=== PATIENT | male | born 1970 | race African-American/Black ===

== ENCOUNTER 2016-10-30 21:34 | Inpatient (IN) | payer MEDICARE, OTHER ==
[~2016-10-30] VITALS: Ht 182.9 cm; Wt 123.4 kg
[~2016-10-30 21:34] MED LIST: CARV25TA2 PO; FURO40TA4 PO; HYDR-2869 PO; MYCO360T PO; OMEP40CA5 PO; POTA20TA12 PO; PRED2.5T PO; TACR1CAP4 PO
[2016-10-30] MEDS ORDERED: IV NORMAL SALINE 500ML BAG 500 ML IV ONE (22:00)
[2016-10-30 22:11] LABS: BASO # 0.1 x10^3/uL (0.0-0.2); BASO % 1 % (0-3); EOS % 1 % (0-3); HEMATOCRIT 40.3 % (39.0-53.0); HEMOGLOBIN 12.9 g/dL (13.0-17.5); LYMPH # 1.3 x10^3/uL (1.0-4.8); LYMPH % 19 % (24-48); MEAN CORPUSCULAR HEMOGLOBIN 26 pg (25-35); MEAN CORPUSCULAR HGB CONC 32 g/dL (31-37); MEAN CORPUSCULAR VOLUME 80 fL (79-100); MONO % 12 % (0-9); NEUT % 67 % (31-73); PLATELET COUNT 194 x10^3/uL (140-400); RED BLOOD COUNT 5.03 x10^6/uL (4.30-5.70); RED CELL DISTRIBUTION WIDTH 13.6 % (11.5-14.5); WHITE BLOOD COUNT 6.8 x10^3/uL (4.0-11.0)
--- NOTE | 2016-10-30 22:17 | PHYS DOC ---
Past Medical History Past Medical History: CHF, Hypertension, Other Additional Past Medical Histor: KIDNEY FAILURE, BAD HEART VALVE, Past Surgical History: Appendectomy, Other Additional Past Surgical Histo: KIDNEY TRANSPLANT, AV FISTULA LEFT ARM Alcohol Use: None Drug Use: None Adult General Chief Complaint Chief Complaint: BLOOD SUGAR PROBLEM HPI HPI Patient is a 46 year old male who presents with complaint of high blood sugar. Patient states that he has been having trouble with high blood sugar for the past 2 weeks. Patient's blood sugars have been ranging between 305 100 during that time. Patient states that he has had 2 visits to the emergency department at [facility]. He states both times he was evaluated, given fluids and medication to help decrease his blood sugar and discharge back home. Patient states that his blood sugar has been persistently high despite treatment. Patient states that he is currently on oral medication for treatment of type 2 diabetes mellitus. Patient has history of CHF, hypertension, and history of renal failure status post kidney transplant. Patient denies any pain. Patient states that he has "a weird feeling in my chest." When asked to elaborate the patient denies that it feels like pain or congestion but states that he has had cough and mild shortness of breath with exertion. Review of Systems Review of Systems Constitutional: Fatigue, denies fever or chills [] Eyes: Denies change in visual acuity, redness, or eye pain [] HENT: Denies nasal congestion or sore throat [] Respiratory: Cough, shortness of breath [] Cardiovascular: Denies chest pain or edema [] GI: Denies abdominal pain, nausea, vomiting, bloody stools or diarrhea [] : Denies dysuria or hematuria [] Musculoskeletal: Denies back pain or joint pain [] Integument: Denies rash or skin lesions [] Neurologic: Denies headache, focal weakness or sensory changes [] Endocrine: Polyuria, polydipsia [] Current Medications Current Medications Current Medications Medications (Trade) Dose Ordered Sig/Bertram Start Time Stop Time Status Last Admin Dose Admin Insulin Detemir (Levemir) 20 units QHS 10/30/16 21:00 UNV Sodium Chloride (Iv Sodium Chloride 0.9% 500ml Bag) 500 ml @ 500 mls/hr 1X ONCE 10/30/16 22:00 10/30/16 22:59 DC 10/30/16 22:27 500 MLS/HR Allergies Allergies Allergies Coded Allergies Type Severity Reaction Last Updated Verified clonidine Allergy Intermediate 11/24/14 No Physical Exam Physical Exam Constitutional: Alert, obese, afebrile, no acute distress. [] HENT: Normocephalic, atraumatic, bilateral external ears normal, oropharynx moist, no oral exudates, nose normal. [] Eyes: PERRLA, EOMI, conjunctiva normal, no discharge. [] Neck: Normal range of motion, no tenderness, supple, no stridor. [] Cardiovascular:Heart rate regular rhythm, no murmur [] Lungs & Thorax: Bilateral breath sounds clear to auscultation [] Abdomen: Bowel sounds normal, soft, no tenderness, no masses, no pulsatile masses. [] Skin: Warm, dry, no erythema, no rash. [] Back: No tenderness, no CVA tenderness. [] Extremities: No tenderness, no cyanosis, no clubbing, ROM intact, 1+ pedal edema bilaterally. [] Neurologic: Alert and oriented X 3, normal motor function, normal sensory function, no focal deficits noted. [] Current Patient Data Vital Signs Vital Signs Date Time Temp Pulse Resp B/P Pulse Ox O2 Delivery O2 Flow Rate FiO2 10/30/16 21:38 98.2 94 20 133/75 95 Room Air 98.2 Lab Values Laboratory Tests Test 10/30/16 22:00 10/30/16 22:34 White Blood Count 6.8x10^3/uL (4.0-11.0) Red Blood Count 5.03x10^6/uL (4.30-5.70) Hemoglobin 12.9g/dL (13.0-17.5) L Hematocrit 40.3% (39.0-53.0) Mean Corpuscular Volume 80fL (79-100) Mean Corpuscular Hemoglobin 26pg (25-35) Mean Corpuscular Hemoglobin Concent 32g/dL (31-37) Red Cell Distribution Width 13.6% (11.5-14.5) Platelet Count 194x10^3/uL (140-400) Neutrophils (%) (Auto) 67% (31-73) Lymphocytes (%) (Auto) 19% (24-48) L Monocytes (%) (Auto) 12% (0-9) H Eosinophils (%) (Auto) 1% (0-3) Basophils (%) (Auto) 1% (0-3) Neutrophils # (Auto) 4.5x10^3uL (1.8-7.7) Lymphocytes # (Auto) 1.3x10^3/uL (1.0-4.8) Monocytes # (Auto) 0.8x10^3/uL (0.0-1.1) Eosinophils # (Auto) 0.0x10^3/uL (0.0-0.7) Basophils # (Auto) 0.1x10^3/uL (0.0-0.2) Sodium Level 132mmol/L (136-145) L Potassium Level 4.5mmol/L (3.5-5.1) Chloride Level 98mmol/L (98-107) Carbon Dioxide Level 24mmol/L (21-32) Anion Gap 10 (6-14) Blood Urea Nitrogen 25mg/dL (8-26) Creatinine 1.6mg/dL (0.7-1.3) H Estimated GFR (Cockcroft-Gault) 56.1 BUN/Creatinine Ratio 16 (6-20) Glucose Level 546mg/dL (70-99) *H Calcium Level 9.9mg/dL (8.5-10.1) Total Bilirubin 0.4mg/dL (0.2-1.0) Aspartate Amino Transferase (AST) 12U/L (15-37) L Alanine Aminotransferase (ALT) 21U/L (16-63) Alkaline Phosphatase 98U/L (46-116) Creatine Kinase 178U/L (39-308) Creatine Kinase MB (Mass) 0.6ng/mL (0.0-3.6) Creatine Kinase MB Relative Index 0.3% (0-4) Troponin I Quantitative < 0.017ng/mL (0.000-0.055) Total Protein 7.8g/dL (6.4-8.2) Albumin 3.5g/dL (3.4-5.0) Albumin/Globulin Ratio 0.8 (1.0-1.7) L Urine Collection Type Unknown Urine Color Yellow Urine Clarity Clear Urine pH 5.5 Urine Specific [place] >=1.030 Urine Protein 100mg/dL (NEG-TRACE) Urine Glucose (UA) >=1000mg/dL (NEG) Urine Ketones (Stick) Negativemg/dL (NEG) Urine Blood Trace (NEG) Urine Nitrite Negative (NEG) Urine Bilirubin Negative (NEG) Urine Urobilinogen Dipstick 0.2mg/dL (0.2 mg/dL) Urine Leukocyte Esterase Negative (NEG) Urine RBC 1-2/HPF (0-2) Urine WBC 0/HPF (0-4) Urine Squamous Epithelial Cells Occ/LPF Urine Bacteria 0/HPF (0-FEW) Laboratory Tests 10/30/16 22:00 Laboratory Tests 10/30/16 22:00 EKG EKG Interpreted by me: Heart rate 86, sinus rhythm, normal intervals, normal axis, no acute ST/T-wave abnormalities present [] Radiology/Procedures Radiology/Procedures One view AP chest x-ray interpreted by me: No infiltrate, no effusion, cardiomegaly present [] Course & Med Decision Making Course & Med Decision Making Pertinent Labs and Imaging studies reviewed. (See chart for details) The patient was started on IV fluids. Patient was found to have a critically high blood sugar 546. I spoke with Dr. Melvin who is on-call for Dr. Wu. She recommended that the patient be started on Levemir and be admitted to the hospital for initiation of insulin therapy for correction of the patient's blood sugar. Spoke with the patient who was in agreement with the treatment plan. Dragon Disclaimer Dragon Disclaimer This electronic medical record was generated, in whole or in part, using a voice recognition dictation system. 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
[2016-10-30 22:30] LABS: ALBUMIN 3.5 g/dL (3.4-5.0); ALBUMIN/GLOBULIN RATIO 0.8 (1.0-1.7); CALCIUM 9.9 mg/dL (8.5-10.1); CREATININE 1.6 mg/dL (0.7-1.3); GFR 56.1; POTASSIUM 4.5 mmol/L (3.5-5.1); TOTAL BILIRUBIN 0.4 mg/dL (0.2-1.0); TOTAL PROTEIN 7.8 g/dL (6.4-8.2)
[2016-10-30] MEDS ORDERED: ONDANSETRON PF 4 MG/2 ML VIAL. IV PRN (22:45)
[2016-10-30] MEDS ORDERED: IV NORMAL SALINE 1000ML BAG 1,000 ML IV SCH (22:45)
[2016-10-30] MEDS ORDERED: DEXTROSE 50% 25 GM / 50ML DISP.SYRIN. IV PRN (22:45)
[2016-10-30] MEDS ORDERED: INSULIN REGULAR 100 UNIT/ML 10ML VIAL. IV ONE (22:45)
[2016-10-30] MEDS ORDERED: ACETAMINOPHEN 325 MG TABLET. PO PRN (22:45)
[2016-10-30 22:50] LABS: BILIRUBIN,URINE NEGATIVE (NEG); GLUCOSE,URINE >=1000 mg/dL (NEG); NITRITE,URINE NEGATIVE (NEG); PH,URINE 5.5; PROTEIN,URINE 100 mg/dL (NEG-TRACE); UROBILINOGEN,URINE 0.2 mg/dL (0.2 mg/dL)
[2016-10-30 23:03] LABS: CKMB INDEX 0.3 % (0-4); CKMB MASS 0.6 ng/mL (0.0-3.6)
[2016-10-30 23:05] LABS: BACTERIA,URINE 0 /HPF (0-FEW); SQUAMOUS EPITHELIAL CELL,UR OCC /LPF; WBC,URINE 0 /HPF (0-4)
--- NOTE | 2016-10-30 23:28 | ACF ---
Admit Criteria Forms Admit Criteria Forms Admit Criteria Forms DIABETES Clinical Indications for Admission to Inpatient Care (Place 'X' for any and all applicable criteria): Admission is indicated by presence of ALL (if I & II) or ANY ONE (if III or IV) of the following (1)(2)(3)(4): [ ]I. Diabetes is uncontrolled as indicated by ANY ONE of the following: [ ]a) Diabetic ketoacidosis as indicated by ALL of the following (8): [ ]i) Hyperglycemia (eg, plasma glucose greater than 200 mg/ dL (11.1 mmol/L)) [ ]ii) Acidosis (eg, arterial pH less than 7.30, serum bicarbonate level less than 15 mEq/L (mmol/L)) [ ]iii) Moderate ketonuria or ketonemia [ ]b) Hyperglycemic hyperosmolar state as indicated by ALL of the following(9)(10): [ ]i) Neurologic dysfunction (eg, stupor, coma, hemiparesis , seizure)(13) [ ]ii) Plasma glucose greater than 600 mg/dL (33.3 mmol/L) [ ]iii) Serum osmolality greater than 320 mOsm/kg (mmol/kg) [ ]c) Severe signs or symptoms secondary to hyperglycemia indicated by ANY ONE of the following: [ ]i) Altered mental status(10) [ ]ii) Significant hypovolemia or dehydration [ ]iii) Intractable nausea or vomiting [ ]iv) Unexplained fever or severe infection [ ]v) Severe electrolyte abnormality (eg, hypokalemia, hyperkalemia, hypernatremia) [ ]II. Management at other levels of care (Also use Diabetes: Observation Care as appropriate) is not feasible because of ANY ONE of the following: [ ]a) Condition was not adequately corrected with treatment at other levels of care. [ ]b) Treatment at other levels of care is not appropriate because of condition severity (eg, hyperosmolar coma). [X]III. Contraindications and/or Inappropriate clinical situations for Observational Care in patients with Diabetes, when ANY ONE of the following is required: [X]a) Patient require specific diagnostic workup or therapeutic intervention 22 [ ]b) Patient with abnormal vital signs or altered mental status 23 [ ]IV. General contraindications and/or Inappropriate clinical situations for Observational Care in patients with Diabetes, when ANY ONE of the following is required: [ ]a) Prediction of prolongation of LOS based on ANY ONE of the following may be considered as a contraindication for observational care 2, 3, 4, 5, 6, 7, 8, 9, 10, 11 [ ]i) Age > 65 yrs. [ ]ii) Patient arriving by ambulance [ ]iii) Patient with high acuity [ ]iv) Patient requiring vital sign monitoring [ ]v) Patient on IV medication [ ]b) Systolic blood pressures 180mmHg 3,12 [ ]c) Patient with altered mental status including delirium and other alteration of consciousness, (3) [ ]d) Patient whose discharge disposition will be to a [place] [facility] home or rehabilitation home should not be managed in Emergency Department Observation Unit. CMS rule requires 3 days hospital stay before such placement.3,13 [ ]e) Patient with failure to thrive due to broad array of etiologies 3,16,17 [ ]f) Inability to ambulate 3,14 Extended stay beyond goal length of stay may be needed for(3)(20): [ ]a) Treatment of precipitating causes [ ]b) Development of hypoglycemia [ ]c) Complications of treatment [ ]d) Complications of decompensated diabetes (eg, acute gastric dilatation, persistent metabolic or neurologic derangement) [ ]e) Active Comorbidities [ ]f) Older patients( 65 years or older) The original [employer] content created by [employer] has been revised. The portions of the content which have been revised are identified through the use of italic text or in bold,and [facility] has neither reviewed nor approved the modified material. All other unmodified content is copyright [employer]. Please see references footnoted in the original [employer] edition 2016 EVETTE LONGORIA Oct 30, 2016 23:28
[2016-10-30 23:35] VITALS: BP 133/80
[2016-10-30] MEDS ORDERED: INSULIN DETEMIR 300 UNITS/3 ML INSULN.PEN. SQ SCH (23:45)
[2016-10-31] MEDS ORDERED: HYDR100T24 PO (00:17)
[2016-10-31] MEDS ORDERED: PRAV20TA2 PO (00:17)
[2016-10-31] MEDS ORDERED: GLIM4TAB2 PO (00:17)
[2016-10-31] MEDS ORDERED: PRED5TAB PO (00:17)
[2016-10-31] MEDS ORDERED: POTA20TA82 PO (00:17)
[2016-10-31] MEDS ORDERED: MAGN400C PO (00:17)
[2016-10-31] MEDS ORDERED: PIOG15TA2 PO (00:17)
[2016-10-31] MEDS ORDERED: TACR5CAP4 PO (00:17)
[2016-10-31] MEDS ORDERED: AMLO5TAB2 PO (00:17)
[2016-10-31] MEDS ORDERED: ALLO300T PO (00:17)
[2016-10-31] MEDS ORDERED: DEXTROSE 50% 25 GM / 50ML DISP.SYRIN. IV PRN (00:45)
[2016-10-31] MEDS ORDERED: INSULIN ASPART 300 UNITS/3 ML INSULN.PEN SQ ONE (01:00)
[2016-10-31] MEDS: ATORVASTATIN CALCIUM 10 MG TABLET. PO SCH ×2 (01:18→20:41)
[2016-10-31] MEDS: HYDRALAZINE 50 MG TABLET PO SCH ×4 (01:18→20:42)
[2016-10-31] MEDS: CARVEDILOL 12.5 MG TABLET PO SCH ×3 (01:20→17:16)
[2016-10-31 03:01] VITALS: BP 143/106
[2016-10-31 05:53] LABS: BASO % 0 % (0-3); EOS % 1 % (0-3); HEMATOCRIT 37.6 % (39.0-53.0); HEMOGLOBIN 12.3 g/dL (13.0-17.5); LYMPH # 1.9 x10^3/uL (1.0-4.8); LYMPH % 32 % (24-48); MEAN CORPUSCULAR HEMOGLOBIN 26 pg (25-35); MEAN CORPUSCULAR HGB CONC 33 g/dL (31-37); MEAN CORPUSCULAR VOLUME 79 fL (79-100); MONO % 14 % (0-9); NEUT % 53 % (31-73); PLATELET COUNT 159 x10^3/uL (140-400); RED BLOOD COUNT 4.78 x10^6/uL (4.30-5.70); RED CELL DISTRIBUTION WIDTH 13.3 % (11.5-14.5); WHITE BLOOD COUNT 5.9 x10^3/uL (4.0-11.0)
[2016-10-31 05:56] LABS: CALCIUM 9.2 mg/dL (8.5-10.1); CREATININE 1.3 mg/dL (0.7-1.3); GFR 71.3; POTASSIUM 3.6 mmol/L (3.5-5.1)
--- NOTE | 2016-10-31 06:19 | EKG ---
[facility] [address] [place] [address] Test Date: 2016-10-30 Test Time: 21:57:58 Pat Name: MARGIE SMITH Department: Room: 521 1 Gender: M [employer]: : 1970 Requested By: CLAUDIO GONZALES Order Number: [id number] Reading MD: Luz Hilario Measurements Intervals [place] Rate: 86 P: 47 ID: [id number] QRS: 18 QRSD: 78 T: 37 QT: 344 QTc: 414 Interpretive Statements SINUS RHYTHM LEFT ATRIAL ABNORMALITY OLD ANTEROSEPTAL WALL MYOCARDIAL INFARCTION ABNORMAL ECG RI6.01 No previous ECG available for comparison Electronically Signed On 10-31-2016 19:52:08 CDT by Luz Hilario
[2016-10-31 07:25] VITALS: BP 135/88
[2016-10-31] MEDS ORDERED: INSULIN ASPART 300 UNITS/3 ML INSULN.PEN SQ SCH ×2 (08:00)
[2016-10-31] MEDS: INSULIN ASPART 300 UNITS/3 ML INSULN.PEN SQ SCH ×5 (08:00→17:19)
--- NOTE | 2016-10-31 08:07 | RAD ---
Portable chest, 10/30/2016: History: Cough Comparison is made to a study from 11/24/2014. The heart is at the upper limits of normal in size. The pulmonary vascularity is normal. No pulmonary infiltrate is seen. There is no evidence of pleural fluid. IMPRESSION: No acute cardiopulmonary abnormality is detected.
--- NOTE | 2016-10-31 08:54 | PDOC ---
PROGRESS NOTES Subjective Subjective Patient reports he feels better with his blood sugars a little lower. Objective Objective Vital Signs Date Time Temp Pulse Resp B/P Pulse Ox O2 Delivery O2 Flow Rate FiO2 10/31/16 08:01 76 135/88 10/31/16 07:25 97.5 20 97 Room Air 97.5 Intake and Output 10/31/16 07:00 Intake Total 800 ml Balance 800 ml Intake Oral 300 ml IV Total 500 ml Physical Exam Abdomen: Normal bowel sounds, Soft, No tenderness Heart: Regular rate, Other (II/ holosystolic murmur) Extremities: No edema General: Alert, Oriented X3, No acute distress Lungs: Clear to auscultation Assessment Assessment Problems Medical Problems: (1) Dehydration Status: Acute (2) Hyperosmolar non-ketotic state in patient with type 2 diabetes mellitus Status: Acute (3) Hypertension Status: Acute (4) Uncontrolled diabetes mellitus Status: Acute Plan Plan of Care 1. Uncontrolled DM2 - starting to improve with insulins, will continue and adjust as indicated. Patient reports that until a few weeks ago he was well controlled on po meds only, last A1C was "6 something". Admits he wasn't watching his diet at all but now intends to work on this. Will check C peptide to see if patient will need to continue on insulin. 2. HTN - continue home meds. 3. s/p renal transplant - continue his usual meds for this, including Prednisone. Renal function has improved overnight with hydration. Patient encouraged increased po fluids. Follow lab. 4. heart murmur - patient reports a history of this, no evaluation for several years. Will consult Cardiology to help with this. 5. ALYSIA - patient's home machine has not worked for several months. Will use hospital equipment while he is here, try to assist with obtaining a new machine as outpatient. Comment Review of Relevant I have reviewed the following items izabela (where applicable) has been applied. Labs Laboratory Tests Test 10/30/16 22:00 10/30/16 22:34 10/31/16 00:24 10/31/16 05:15 White Blood Count 6.8x10^3/uL (4.0-11.0) 5.9x10^3/uL (4.0-11.0) Red Blood Count 5.03x10^6/uL (4.30-5.70) 4.78x10^6/uL (4.30-5.70) Hemoglobin 12.9g/dL (13.0-17.5) 12.3g/dL (13.0-17.5) Hematocrit 40.3% (39.0-53.0) 37.6% (39.0-53.0) Mean Corpuscular Volume 80fL (79-100) 79fL (79-100) Mean Corpuscular Hemoglobin 26pg (25-35) 26pg (25-35) Mean Corpuscular Hemoglobin Concent 32g/dL (31-37) 33g/dL (31-37) Red Cell Distribution Width 13.6% (11.5-14.5) 13.3% (11.5-14.5) Platelet Count 194x10^3/uL (140-400) 159x10^3/uL (140-400) Neutrophils (%) (Auto) 67% (31-73) 53% (31-73) Lymphocytes (%) (Auto) 19% (24-48) 32% (24-48) Monocytes (%) (Auto) 12% (0-9) 14% (0-9) Eosinophils (%) (Auto) 1% (0-3) 1% (0-3) Basophils (%) (Auto) 1% (0-3) 0% (0-3) Neutrophils # (Auto) 4.5x10^3uL (1.8-7.7) 3.1x10^3uL (1.8-7.7) Lymphocytes # (Auto) 1.3x10^3/uL (1.0-4.8) 1.9x10^3/uL (1.0-4.8) Monocytes # (Auto) 0.8x10^3/uL (0.0-1.1) 0.8x10^3/uL (0.0-1.1) Eosinophils # (Auto) 0.0x10^3/uL (0.0-0.7) 0.0x10^3/uL (0.0-0.7) Basophils # (Auto) 0.1x10^3/uL (0.0-0.2) 0.0x10^3/uL (0.0-0.2) Sodium Level 132mmol/L (136-145) 136mmol/L (136-145) Potassium Level 4.5mmol/L (3.5-5.1) 3.6mmol/L (3.5-5.1) Chloride Level 98mmol/L (98-107) 102mmol/L (98-107) Carbon Dioxide Level 24mmol/L (21-32) 25mmol/L (21-32) Anion Gap 10 (6-14) 9 (6-14) Blood Urea Nitrogen 25mg/dL (8-26) 25mg/dL (8-26) Creatinine 1.6mg/dL (0.7-1.3) 1.3mg/dL (0.7-1.3) Estimated GFR (Cockcroft-Gault) 56.1 71.3 BUN/Creatinine Ratio 16 (6-20) Glucose Level 546mg/dL (70-99) 358mg/dL (70-99) Calcium Level 9.9mg/dL (8.5-10.1) 9.2mg/dL (8.5-10.1) Total Bilirubin 0.4mg/dL (0.2-1.0) Aspartate Amino Transf (AST/SGOT) 12U/L (15-37) Alanine Aminotransferase (ALT/SGPT) 21U/L (16-63) Alkaline Phosphatase 98U/L (46-116) Creatine Kinase 178U/L (39-308) Creatine Kinase MB (Mass) 0.6ng/mL (0.0-3.6) Creatine Kinase MB Relative Index 0.3% (0-4) Troponin I Quantitative < 0.017ng/mL (0.000-0.055) Total Protein 7.8g/dL (6.4-8.2) Albumin 3.5g/dL (3.4-5.0) Albumin/Globulin Ratio 0.8 (1.0-1.7) Urine Collection Type Unknown Urine Color Yellow Urine Clarity Clear Urine pH 5.5 Urine Specific [place] >=1.030 Urine Protein 100mg/dL (NEG-TRACE) Urine Glucose (UA) >=1000mg/dL (NEG) Urine Ketones (Stick) Negativemg/dL (NEG) Urine Blood Trace (NEG) Urine Nitrite Negative (NEG) Urine Bilirubin Negative (NEG) Urine Urobilinogen Dipstick 0.2mg/dL (0.2 mg/dL) Urine Leukocyte Esterase Negative (NEG) Urine RBC 1-2/HPF (0-2) Urine WBC 0/HPF (0-4) Urine Squamous Epithelial Cells Occ/LPF Urine Bacteria 0/HPF (0-FEW) Glucose (Fingerstick) 459mg/dL (70-99) Laboratory Tests Test 10/30/16 22:00 10/30/16 22:34 10/31/16 00:24 10/31/16 05:15 White Blood Count 6.8x10^3/uL (4.0-11.0) 5.9x10^3/uL (4.0-11.0) Red Blood Count 5.03x10^6/uL (4.30-5.70) 4.78x10^6/uL (4.30-5.70) Hemoglobin 12.9g/dL (13.0-17.5) 12.3g/dL (13.0-17.5) Hematocrit 40.3% (39.0-53.0) 37.6% (39.0-53.0) Mean Corpuscular Volume 80fL (79-100) 79fL (79-100) Mean Corpuscular Hemoglobin 26pg (25-35) 26pg (25-35) Mean Corpuscular Hemoglobin Concent 32g/dL (31-37) 33g/dL (31-37) Red Cell Distribution Width 13.6% (11.5-14.5) 13.3% (11.5-14.5) Platelet Count 194x10^3/uL (140-400) 159x10^3/uL (140-400) Neutrophils (%) (Auto) 67% (31-73) 53% (31-73) Lymphocytes (%) (Auto) 19% (24-48) 32% (24-48) Monocytes (%) (Auto) 12% (0-9) 14% (0-9) Eosinophils (%) (Auto) 1% (0-3) 1% (0-3) Basophils (%) (Auto) 1% (0-3) 0% (0-3) Neutrophils # (Auto) 4.5x10^3uL (1.8-7.7) 3.1x10^3uL (1.8-7.7) Lymphocytes # (Auto) 1.3x10^3/uL (1.0-4.8) 1.9x10^3/uL (1.0-4.8) Monocytes # (Auto) 0.8x10^3/uL (0.0-1.1) 0.8x10^3/uL (0.0-1.1) Eosinophils # (Auto) 0.0x10^3/uL (0.0-0.7) 0.0x10^3/uL (0.0-0.7) Basophils # (Auto) 0.1x10^3/uL (0.0-0.2) 0.0x10^3/uL (0.0-0.2) Sodium Level 132mmol/L (136-145) 136mmol/L (136-145) Potassium Level 4.5mmol/L (3.5-5.1) 3.6mmol/L (3.5-5.1) Chloride Level 98mmol/L (98-107) 102mmol/L (98-107) Carbon Dioxide Level 24mmol/L (21-32) 25mmol/L (21-32) Anion Gap 10 (6-14) 9 (6-14) Blood Urea Nitrogen 25mg/dL (8-26) 25mg/dL (8-26) Creatinine 1.6mg/dL (0.7-1.3) 1.3mg/dL (0.7-1.3) Estimated GFR (Cockcroft-Gault) 56.1 71.3 BUN/Creatinine Ratio 16 (6-20) Glucose Level 546mg/dL (70-99) 358mg/dL (70-99) Calcium Level 9.9mg/dL (8.5-10.1) 9.2mg/dL (8.5-10.1) Total Bilirubin 0.4mg/dL (0.2-1.0) Aspartate Amino Transf (AST/SGOT) 12U/L (15-37) Alanine Aminotransferase (ALT/SGPT) 21U/L (16-63) Alkaline Phosphatase 98U/L (46-116) Creatine Kinase 178U/L (39-308) Creatine Kinase MB (Mass) 0.6ng/mL (0.0-3.6) Creatine Kinase MB Relative Index 0.3% (0-4) Troponin I Quantitative < 0.017ng/mL (0.000-0.055) Total Protein 7.8g/dL (6.4-8.2) Albumin 3.5g/dL (3.4-5.0) Albumin/Globulin Ratio 0.8 (1.0-1.7) Urine Collection Type Unknown Urine Color Yellow Urine Clarity Clear Urine pH 5.5 Urine Specific [place] >=1.030 Urine Protein 100mg/dL (NEG-TRACE) Urine Glucose (UA) >=1000mg/dL (NEG) Urine Ketones (Stick) Negativemg/dL (NEG) Urine Blood Trace (NEG) Urine Nitrite Negative (NEG) Urine Bilirubin Negative (NEG) Urine Urobilinogen Dipstick 0.2mg/dL (0.2 mg/dL) Urine Leukocyte Esterase Negative (NEG) Urine RBC 1-2/HPF (0-2) Urine WBC 0/HPF (0-4) Urine Squamous Epithelial Cells Occ/LPF Urine Bacteria 0/HPF (0-FEW) Glucose (Fingerstick) 459mg/dL (70-99) Medications Current Medications Sodium Chloride (Iv Sodium Chloride 0.9% 500ml Bag) 500 ml @ 500 mls/hr 1X ONCE IV Last administered on 10/30/16 22:27; Start 10/30/16 at 22:00; Stop at 22:59; Status DC Insulin Human Regular (Novolin R Vial) 10 unit 1X ONCE IV ; Start 10/30/16 at 22:45; Stop 10/30/16 at 23:12; Status DC Ondansetron HCl 4 mg 4 mg PRN Q8HRS PRN IV NAUSEA/VOMITING; Start 10/30/16 at 22:45; Stop 10/31/16 at 22:44 Sodium Chloride (Iv Sodium Chloride 0.9% 1000ml Bag) 1,000 ml @ 50 mls/hr Q20H IV Last administered on 10/31/16 01:13; Start 10/30/16 at 22:45; Stop at 22:44 Acetaminophen (Tylenol) 650 mg PRN Q4HRS PRN PO FEVER; Start 10/30/16 at 22:45 ; Stop 10/31/16 at 22:44 Insulin Detemir (Levemir) 20 units QHS SQ Last administered on 10/31/16 01:26 ; Start 10/30/16 at 23:45 Insulin Aspart (Novolog) 0-9 UNITS TIDWMEALS SQ Last administered on 10/31/16 08:16; Start 10/31/16 at 08:00 Dextrose 12.5 gm PRN Q15MIN PRN IV SEE COMMENTS; Start 10/30/16 at 22:45 Hydralazine HCl (Apresoline) 25 mg BID PO Last administered on 10/31/16 08:01 ; Start 10/31/16 at 01:00 Carvedilol (Coreg) 25 mg BIDWMEALS PO Last administered on 10/31/16 08:00; Start 10/31/16 at 01:00 Atorvastatin Calcium (Lipitor) 5 mg HS PO Last administered on 10/31/16 01:18 ; Start 10/31/16 at 01:00 Insulin Aspart (Novolog) 10 units 1X ONCE SQ Last administered on 10/31/16 01 :27; Start 10/31/16 at 01:00; Stop 10/31/16 at 01:01; Status DC Insulin Aspart (Novolog) 10 units TIDWMEALS SQ Last administered on 10/31/16 08:17; Start 10/31/16 at 08:00 Insulin Aspart (Novolog) 0-9 UNITS TIDWMEALS SQ ; Start 10/31/16 at 08:00 Dextrose 12.5 gm PRN Q15MIN PRN IV SEE COMMENTS; Start 10/31/16 at 00:45 Allopurinol (Zyloprim) 300 mg DAILY PO ; Start 10/31/16 at 09:00; Status UNV Amlodipine Besylate (Norvasc) 10 mg DAILY PO ; Start 10/31/16 at 09:00; Status UNV Mycophenolate Sodium (Myfortic) 360 mg DAILY PO ; Start 10/31/16 at 09:00; Status UNV Prednisone (Prednisone) 5 mg DAILY PO ; Start 10/31/16 at 09:00; Status UNV Tacrolimus (Prograf) 3 mg BID PO ; Start 10/31/16 at 09:00; Status UNV Non-Formulary Medication 2 cap DAILY PO ; Start 10/31/16 at 09:00; Status UNV Non-Formulary Medication 40 mg DAILY PO ; Start 10/31/16 at 09:00; Status UNV Hydralazine HCl (Apresoline) 100 mg BID PO ; Start 10/31/16 at 09:00; Status UNV Prednisone (Prednisone) 2.5 mg DAILY PO ; Start 10/31/16 at 09:00; Status UNV Active Scripts Active Reported Pravastatin Sodium 20 Mg Tablet 20 Mg PO HS Magnesium (Magnesium Oxide) 400 Mg Capsule 2 Cap PO DAILY Prednisone 5 Mg Tablet 5 Mg PO DAILY Glimepiride 4 Mg Tablet 4 Mg PO BID Allopurinol 300 Mg Tablet 300 Mg PO DAILY Pioglitazone Hcl 15 Mg Tablet 40 Mg PO DAILY Amlodipine Besylate 5 Mg Tablet 10 Mg PO DAILY Hydralazine Hcl 100 Mg Tablet 100 Mg PO BID Omeprazole 40 Mg Capsule.dr 40 Mg PO DAILY Potassium Chloride 20 Meq Tab.er.prt 20 Meq PO DAILY Carvedilol 25 Mg Tablet 1 Tab PO BID Prednisone 2.5 Mg Tablet 2.5 Mg PO DAILY Myfortic (Mycophenolate Sodium) 360 Mg Tablet.dr 360 Mg PO Prograf (Tacrolimus) 1 Mg Capsule 3 Cap PO BID Vitals/I & O Vital Sign - Last 24 Hours 10/30/16 10/30/16 10/30/16 10/30/16 21:38 22:26 22:56 23:35 Temp 98.2 98.3 98.2 98.3 Pulse 94 86 88 80 Resp 20 22 20 B/P 133/75 130/79 133/75 133/80 Pulse Ox 95 94 96 95 O2 Delivery Room Air Room Air Room Air Room Air 10/31/16 10/31/16 10/31/16 10/31/16 01:18 01:20 01:51 03:01 Temp 98.0 98.0 Pulse 80 80 96 Resp 20 B/P 133/80 133/80 143/106 Pulse Ox 93 O2 Delivery Room Air Room Air 10/31/16 10/31/16 10/31/16 07:25 08:00 08:01 Temp 97.5 97.5 Pulse 76 76 76 Resp 20 B/P 135/88 135/88 135/88 Pulse Ox 97 O2 Delivery Room Air Intake and Output 10/30/16 10/30/16 10/31/16 15:00 23:00 07:00 Intake Total 800 ml Balance 800 ml TL ABBASI MD Oct 31, 2016 08:54
[2016-10-31] MEDS ORDERED: PREDNISONE 5 MG TABLET PO SCH (09:00)
[2016-10-31] MEDS: TACROLIMUS 1 MG CAPSULE PO SCH ×2 (09:29→20:41)
[2016-10-31] MEDS: MAGNESIUM OXIDE 400 MG TABLET PO SCH (09:29)
[2016-10-31] MEDS: MYCOPHENOLATE ACID 180 MG TABLET.DR. PO SCH (09:29)
[2016-10-31] MEDS: PREDNISONE 5 MG TABLET PO SCH (09:29)
[2016-10-31] MEDS: ALLOPURINOL 300 MG TABLET. PO SCH (09:29)
[2016-10-31] MEDS: PANTOPRAZOLE 40 MG TABLET. PO SCH (09:30)
[2016-10-31] MEDS: AMLODIPINE BESYLATE 10 MG TABLET PO SCH (09:30)
--- NOTE | 2016-10-31 09:58 | HP ---
ADMIT DATE: 10/31/2016 CHIEF COMPLAINT: High blood sugar. HISTORY OF PRESENT ILLNESS: The patient is a 46-year-old male who has been on oral diabetes medicine for several years. He reports that his blood sugars had been well controlled until recently when he noticed that they were very high despite taking his usual medications. He was seen in the Emergency Room twice for this within the past 2 weeks. Both times, he was treated as an outpatient and discharged. He reports that the high blood sugars had continued and he began to feel worse with them. When seen in the Emergency Room, his initial blood sugar was 546. Urine was negative for ketones. He was started on fluids and insulin and admitted for further treatment. PAST MEDICAL HISTORY: Diabetes mellitus type 2, end-stage renal disease, status post renal transplant, hypertension and obstructive sleep apnea. PAST SURGICAL HISTORY: Renal transplant in 2011 and hernia repair. ALLERGIES: THE PATIENT IS ALLERGIC TO CLONIDINE. HOME MEDICATIONS: Allopurinol 300 mg daily, amlodipine 10 mg daily, carvedilol 25 mg b.i.d., glimepiride 4 mg b.i.d., hydralazine 100 mg b.i.d., magnesium oxide 400 mg capsule 2 capsules daily, mycophenolate 360 mg daily, omeprazole 40 mg daily, pioglitazone 40 mg daily, potassium 20 mEq daily, pravastatin 20 mg daily, prednisone 7.5 mg daily, tacrolimus 1 mg capsule 3 capsules b.i.d. FAMILY HISTORY: Noncontributory. SOCIAL HISTORY: The patient is . He has never smoked cigarettes. He does not drink alcohol to excess. 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 REVIEW OF SYSTEMS: The patient reports that he had an illness several weeks ago that was diagnosed as influenza. He completed treatment with Tamiflu for this and those symptoms have resolved. He denies cough or shortness of breath. He denies chest pain or palpitations. He has a history of murmur. He states he has not seen a heart doctor or had any evaluation of the murmur for several years. He denies abdominal pain, nausea or vomiting. He denies lower extremity edema. He states that his blood sugars had been well controlled until just the past few weeks. He admits that he has not watched his diet very well at all, but has recently begun to work on this. He states he has been taking his other medications daily. [facility]. He has not been seen in our office in several years because [place] had [place] of [place]. He had recently moved back to this area and had already scheduled an office visit with Dr. Melendez to resume his care with us. The patient has obstructive sleep apnea and he has used CPAP for several years for this. He reports that his home machine is not presently working, as he needs a new power cord for it. He denies problems tolerating CPAP when he was using it. PHYSICAL EXAMINATION: GENERAL: The patient is alert and oriented x 3, resting comfortably in bed in no acute distress. HEENT: PERRL, EOMI, sclerae clear. Oropharynx: Mucous membranes moist. NECK: Supple, without lymphadenopathy. CHEST: Clear to auscultation. CARDIOVASCULAR: Regular rhythm. 2/6 holosystolic murmur. ABDOMEN: Soft, nontender, normoactive bowel sounds are present. EXTREMITIES: Without edema. ASSESSMENT AND PLAN: 1. Uncontrolled diabetes mellitus type 2. This has started to improve with insulin. We will continue insulins and adjust as indicated. We will check a C-peptide to see if the patient is still making insulin, as he reports he was well controlled on oral medications only until just the past few weeks. 2. Hypertension. Continue home medications and follow. 3. Status post renal transplant. We will continue his usual medications for this including prednisone. His renal function has improved overnight with IV fluids. 4. Heart murmur. The patient has not had an evaluation of this for several years. We will consult Cardiology while he is here for further evaluation of this. 5. Obstructive sleep apnea. The patient will need a new CPAP, but this can only be done as an outpatient. He can use the hospital equipment while he is here. TL ABBASI MD DR: CHOLO/nadine JOB#: [id number] / [id number] EULALIO
[2016-10-31 10:30] VITALS: BP 122/81
--- NOTE | 2016-10-31 11:05 | PDOC2 ---
CARDIAC CONSULT DATE OF CONSULT Date of Consult DATE: 10/31/16 TIME: 10:59 REASON FOR CONSULT Reason for Consult: Murmur REFERRING PHYSICIAN Referring Physician: Olegario SOURCE Source: Chart review, Patient HISTORY OF PRESENT ILLNESS HISTORY OF PRESENT ILLNESS This is a pleasant 46 yo male admitted for complains of significantly elevated BG at home. HE noted it as 505 with his glucometer. He has been compliant with his DM meds but apparently he is on steroid therapy and immunosuppressants due to renal transplant and in addition he has not been compliant with his diet and no organized form of exercise. He is obese and also notable for ALYSIA in which he has not been using his CPAP since 6 months ago due to defective cord which originally got broken while he was residing at [facility]. Complains of being more tired and MOSQUERA at long distance indicating decreased activity tolerance. He did report having the flu about 2 weeks ago with associated nausea and diarrhea but has not been having this problem and no fever or chills. However he has noticed some dry coughing recently. No CP no SOA at rest. No nausea, palpitations. Dung any IV drug use, cocaine, tobaccoism. Denies any increasing leg swelling, orthopnea, or PND. PAST MEDICAL HISTORY Cardiovascular: HTN Pulmonary: Other (ALYSIA) CENTRAL NERVOUS SYSTEM: Other (No pertinent history) GI: GERD Heme/Onc: No pertinent hx Hepatobiliary: No pertinent hx Psych: No pertinent hx Musculoskeletal: Osteoarthritis Rheumatologic: Gout Infectious disease: Other (flu 2 weeks ago) ENT: No pertinent hx Renal/: Chronic renal insuff, Chronic renal failure (ESRD last dialysis in 2011 ), Other (renal transplant recipient) Endocrine: Diabetes (2) Dermatology: No pertinent hx PAST SURGICAL HISTORY Past Surgical History: Hernia Repair (inguinal), Other (renal transplant 02/2012 ; Left arm dialysis fistula) FAMILY HISTORY Family History noncontributory SOCIAL HISTORY Smoke: No ALCOHOL: occassional Drugs: None Lives: with Family CURRENT MEDICATIONS CURRENT MEDICATIONS Current Medications Medications (Trade) Dose Ordered Sig/Bertram Route PRN Reason Start Time Stop Time Status Last Admin Dose Admin Sodium Chloride 500 ml @ 500 mls/hr 1X ONCE IV 10/30/16 22:00 10/30/16 22:59 DC 10/30/16 22:27 Sodium Chloride (Iv Sodium Chloride 0.9% 1000ml Bag) 1,000 ml @ 50 mls/hr Q20H IV 10/30/16 22:45 10/31/16 08:49 DC 10/31/16 01:13 Insulin Detemir (Levemir) 20 units QHS SQ 10/30/16 23:45 10/31/16 08:49 DC 10/31/16 01:26 Insulin Aspart (Novolog) 0-9 UNITS TIDWMEALS SQ 10/31/16 08:00 10/31/16 08:55 DC 10/31/16 08:16 Hydralazine HCl (Apresoline) 25 mg BID PO 10/31/16 01:00 10/31/16 08:55 DC 10/31/16 08:01 Carvedilol (Coreg) 25 mg BIDWMEALS PO 10/31/16 01:00 10/31/16 08:00 Atorvastatin Calcium (Lipitor) 5 mg HS PO 10/31/16 01:00 10/31/16 01:18 Insulin Aspart (Novolog) 10 units 1X ONCE SQ 10/31/16 01:00 10/31/16 01:01 DC 10/31/16 01:27 Insulin Aspart (Novolog) 10 units TIDWMEALS SQ 10/31/16 08:00 10/31/16 08:49 DC 10/31/16 08:17 Allopurinol (Zyloprim) 300 mg DAILY PO 10/31/16 09:00 10/31/16 09:29 Amlodipine Besylate (Norvasc) 10 mg DAILY PO 10/31/16 09:00 10/31/16 09:30 Mycophenolate Sodium (Myfortic) 360 mg DAILY PO 10/31/16 10:00 10/31/16 09:29 Tacrolimus (Prograf) 3 mg BID PO 10/31/16 09:00 10/31/16 09:29 Magnesium Oxide (Magnesium Oxide) 800 mg DAILY PO 10/31/16 09:00 10/31/16 09:29 Pantoprazole Sodium (Protonix) 40 mg DAILYAC PO 10/31/16 09:00 10/31/16 09:30 Prednisone (Prednisone) 7.5 mg DAILY PO 10/31/16 10:00 10/31/16 09:29 ALLERGIES ALLERGIES: Coded Allergies: clonidine (Verified Allergy, Intermediate, 10/31/16) " I don't feel right" ROS Review of System 14 point ROS evaluated with pertinent positives noted per HPI PHYSICAL EXAM General: Alert, Oriented X3, Cooperative, No acute distress HEENT: Atraumatic, Mucous membr. moist/pink Lungs: Clear to auscultation, Normal air movement Heart: Regular rate, Normal S1, Normal S2, Other (S4, rub mainly to LLS border , 5/6 syslic murmur to apical and LLS border) Abdomen: Soft, No tenderness Extremities: No cyanosis, No edema Skin: No breakdown, No significant lesion Neuro: Normal speech, Sensation intact Psych/Mental Status: Mental status NL, Mood NL MUSCULOSKELETAL: Osteoarthritic changes both hands VITALS VITALS Vital Signs Date Time Temp Pulse Resp B/P Pulse Ox O2 Delivery O2 Flow Rate FiO2 10/31/16 10:30 98.4 85 20 122/81 95 Room Air 98.4 LABS Lab: Laboratory Tests Test 10/30/16 22:00 10/30/16 22:34 10/31/16 00:24 10/31/16 05:15 White Blood Count 6.8x10^3/uL (4.0-11.0) 5.9x10^3/uL (4.0-11.0) Red Blood Count 5.03x10^6/uL (4.30-5.70) 4.78x10^6/uL (4.30-5.70) Hemoglobin 12.9g/dL (13.0-17.5) 12.3g/dL (13.0-17.5) Hematocrit 40.3% (39.0-53.0) 37.6% (39.0-53.0) Mean Corpuscular Volume 80fL (79-100) 79fL (79-100) Mean Corpuscular Hemoglobin 26pg (25-35) 26pg (25-35) Mean Corpuscular Hemoglobin Concent 32g/dL (31-37) 33g/dL (31-37) Red Cell Distribution Width 13.6% (11.5-14.5) 13.3% (11.5-14.5) Platelet Count 194x10^3/uL (140-400) 159x10^3/uL (140-400) Neutrophils (%) (Auto) 67% (31-73) 53% (31-73) Lymphocytes (%) (Auto) 19% (24-48) 32% (24-48) Monocytes (%) (Auto) 12% (0-9) 14% (0-9) Eosinophils (%) (Auto) 1% (0-3) 1% (0-3) Basophils (%) (Auto) 1% (0-3) 0% (0-3) Neutrophils # (Auto) 4.5x10^3uL (1.8-7.7) 3.1x10^3uL (1.8-7.7) Lymphocytes # (Auto) 1.3x10^3/uL (1.0-4.8) 1.9x10^3/uL (1.0-4.8) Monocytes # (Auto) 0.8x10^3/uL (0.0-1.1) 0.8x10^3/uL (0.0-1.1) Eosinophils # (Auto) 0.0x10^3/uL (0.0-0.7) 0.0x10^3/uL (0.0-0.7) Basophils # (Auto) 0.1x10^3/uL (0.0-0.2) 0.0x10^3/uL (0.0-0.2) Sodium Level 132mmol/L (136-145) 136mmol/L (136-145) Potassium Level 4.5mmol/L (3.5-5.1) 3.6mmol/L (3.5-5.1) Chloride Level 98mmol/L (98-107) 102mmol/L (98-107) Carbon Dioxide Level 24mmol/L (21-32) 25mmol/L (21-32) Anion Gap 10 (6-14) 9 (6-14) Blood Urea Nitrogen 25mg/dL (8-26) 25mg/dL (8-26) Creatinine 1.6mg/dL (0.7-1.3) 1.3mg/dL (0.7-1.3) Estimated GFR (Cockcroft-Gault) 56.1 71.3 BUN/Creatinine Ratio 16 (6-20) Glucose Level 546mg/dL (70-99) 358mg/dL (70-99) Calcium Level 9.9mg/dL (8.5-10.1) 9.2mg/dL (8.5-10.1) Total Bilirubin 0.4mg/dL (0.2-1.0) Aspartate Amino Transf (AST/SGOT) 12U/L (15-37) Alanine Aminotransferase (ALT/SGPT) 21U/L (16-63) Alkaline Phosphatase 98U/L (46-116) Creatine Kinase 178U/L (39-308) Creatine Kinase MB (Mass) 0.6ng/mL (0.0-3.6) Creatine Kinase MB Relative Index 0.3% (0-4) Troponin I Quantitative < 0.017ng/mL (0.000-0.055) Total Protein 7.8g/dL (6.4-8.2) Albumin 3.5g/dL (3.4-5.0) Albumin/Globulin Ratio 0.8 (1.0-1.7) Urine Collection Type Unknown Urine Color Yellow Urine Clarity Clear Urine pH 5.5 Urine Specific [place] >=1.030 Urine Protein 100mg/dL (NEG-TRACE) Urine Glucose (UA) >=1000mg/dL (NEG) Urine Ketones (Stick) Negativemg/dL (NEG) Urine Blood Trace (NEG) Urine Nitrite Negative (NEG) Urine Bilirubin Negative (NEG) Urine Urobilinogen Dipstick 0.2mg/dL (0.2 mg/dL) Urine Leukocyte Esterase Negative (NEG) Urine RBC 1-2/HPF (0-2) Urine WBC 0/HPF (0-4) Urine Squamous Epithelial Cells Occ/LPF Urine Bacteria 0/HPF (0-FEW) Glucose (Fingerstick) 459mg/dL (70-99) ASSESSMENT/PLAN ASSESSMENT/PLAN 1. Uncontrolled DM2: initially BG in the 500s, noncompliant with exercise and diet. 2. Valvular insufficiency/ possible pericarditis: Diastolic murmur 5/6 LLS border (NEW?) with rub?- Systolic to apical 4/[address] elevation via EKG.CP free. Initial trop normal. 3. Recent viral infection/diarrhea: noted with flu 2 weeks ago per pt. 4. HTN: controlled 5. HLP 6. CKD: past ESRD/dialysis resolved with renal transplant, Cr stable. 7. Chronic immunosuppressions: with prednisone and prograf and myfortic. 8. ALYSIA: broken CPAP, off it for 6 months now. 9. Fatigue/MOSQUERA: Clinically no CHF. Likely from immunosuppression, and uncontrolled DM as well as valvular insufficiency. Recommendations 1. ESR, TTE, repeat EKG and troponin 2. Continue with secondary prevention. 3. Optimize BG and ALYSIA control 4. Further recommendation pending TTE result, currently hemodynamically stable. Problems: DALILA WORTHY APRN Oct 31, 2016 11:05
--- NOTE | 2016-10-31 12:13 | EKG ---
[facility] [address] [place] [address] Test Date: 2016-10-31 Test Time: 12:07:16 Pat Name: MARGIE SMITH Department: Room: 521 1 Gender: M Clinical Product Manager: : 1970 Requested By: DALILA WORTHY Order Number: [id number] Reading MD: Luz Hilario Measurements Intervals [place] Rate: 78 P: 59 MT: 176 QRS: 34 QRSD: 78 T: -23 QT: 340 QTc: 391 Interpretive Statements SINUS RHYTHM T ABNORMALITY IN INFERIOR LEADS ABNORMAL ECG RI6.01 No previous ECG available for comparison Electronically Signed On 10-31-2016 20:01:38 CDT by Luz Hilario
[2016-10-31 14:10] VITALS: BP 112/70
--- NOTE | 2016-10-31 14:13 | CARD ---
APPROVED REPORT EXAM: Two-dimensional and M-mode echocardiogram with Doppler and color Doppler. Other Information Quality : Average Rhythm : NSR INDICATION Murmur 2D DIMENSIONS RVDd2.8 (2.9-3.5cm)Left Atrium(2D)4.4 (1.6-4.0cm) IVSd1.8 (0.7-1.1cm)Aortic Root(2D)3.3 (2.0-3.7cm) LVDd5.1 (3.9-5.9cm)LVOT Diameter2.1 (1.8-2.4cm) PWd1.7 (0.7-1.1cm)LVDs3.0 (2.5-4.0cm) FS (%) 40.8 %SV89.1 ml LVEF(%)70.5 (>50%) Aortic Valve AoV Peak Ruddy.214.3cm/sAoV VTI38.0cm AO Peak GR.18.4mmHgLVOT Peak Ruddy.145.4cm/s LVOT VTI 25.29cmAO Mean GR.11mmHg JUANITO (VMAX)2.84zu2UQU (VTI)2.29cm2 AI P 1/2 Skgv131zn Mitral Valve MV E Vfhrzfih19.4cm/sMV DECEL OJWN554to MV A Bbusyvic21.0cm/sMV E Mean Gr.3mmHg MV FHK08sgS/A Ratio1.1 MV A Amejjgqm568laURY (PHT)3.16cm2 TDI E/Lateral E'11.8E/Medial E'12.5 Pulmonary Valve PV Peak Ccljsehp713.8cm/sPV Peak Grad.7mmHg RVOT VTI20.8cm Tricuspid Valve TR P. Fwmsgpnk548jy/sRAP DGDMUIEX8spFq TR Peak Gr.95oxNaMRYP50xcAn Pulmonary Vein S1 Ljibcibl86.3cm/sD2 Fmvnrlss85.1cm/s LEFT VENTRICLE The left ventricle is normal size. There is moderate concentric left ventricular hypertrophy. Left ve ntricle systolic function is normal. The Ejection Fraction is 65-70%. There is normal LV segmental wa ll motion. The left ventricular diastolic function and filling is normal for age. RIGHT VENTRICLE The right ventricle is normal size. The right ventricular systolic function is normal. ATRIA The left atrium is borderline dilated. The right atrium size is normal. The interatrial septum is int act with no evidence for an atrial septal defect or patent foramen ovale as noted on 2-D or Doppler i maging. AORTIC VALVE The aortic valve leaflets appear thickened. Doppler and Color Flow revealed mild aortic regurgitation . There is no significant aortic valvular stenosis. MITRAL VALVE The anterior mitral valve leaflet appears thickened. There is no mitral valve stenosis. Doppler and C olor Flow revealed trace mitral regurgitation. TRICUSPID VALVE The tricuspid valve is not well visualized. Doppler and Color Flow revealed trace to mild tricuspid r egurgitation. The PA pressure was estimated at 26 mmHg. There is no tricuspid valve stenosis. PULMONIC VALVE The pulmonic valve is not well visualized. Doppler and Color Flow revealed trace pulmonic valvular re gurgitation. There is no pulmonic valvular stenosis. GREAT VESSELS The aortic root is normal in size. Normal pulmonary venous flow (Doppler). The IVC is normal in size and collapses >50% with inspiration. PERICARDIAL EFFUSION There is no evidence of significant pericardial effusion. Critical Notification Critical Value: No <Conclusion> Left ventricle systolic function is normal. The Ejection Fraction is 65-70%. There is normal LV segmental wall motion. Doppler and Color Flow revealed mild aortic regurgitation.
[2016-10-31 19:00] VITALS: BP 114/75
[2016-10-31] MEDS: INSULIN DETEMIR 300 UNITS/3 ML INSULN.PEN. SQ SCH (20:48)
[2016-10-31 23:00] VITALS: BP 143/81
[2016-11-01 03:00] VITALS: BP 132/84
[2016-11-01 05:42] LABS: CALCIUM 9.1 mg/dL (8.5-10.1); CREATININE 1.3 mg/dL (0.7-1.3); GFR 71.3; POTASSIUM 3.8 mmol/L (3.5-5.1)
[2016-11-01 07:00] VITALS: BP 121/79
[2016-11-01] MEDS: PANTOPRAZOLE 40 MG TABLET. PO SCH (07:11)
[2016-11-01] MEDS: HYDRALAZINE 50 MG TABLET PO SCH ×2 (08:27→20:51)
[2016-11-01] MEDS: CARVEDILOL 12.5 MG TABLET PO SCH ×2 (08:27→16:23)
[2016-11-01] MEDS: MAGNESIUM OXIDE 400 MG TABLET PO SCH (08:27)
[2016-11-01] MEDS: TACROLIMUS 1 MG CAPSULE PO SCH ×2 (08:28→20:51)
[2016-11-01] MEDS: MYCOPHENOLATE ACID 180 MG TABLET.DR. PO SCH (08:28)
[2016-11-01] MEDS: ALLOPURINOL 300 MG TABLET. PO SCH (08:28)
[2016-11-01] MEDS: PREDNISONE 5 MG TABLET PO SCH (08:28)
[2016-11-01] MEDS: AMLODIPINE BESYLATE 10 MG TABLET PO SCH (08:28)
[2016-11-01] MEDS: INSULIN ASPART 300 UNITS/3 ML INSULN.PEN SQ SCH ×6 (08:39→17:09)
--- NOTE | 2016-11-01 10:49 | PDOC ---
CARDIO Progress Notes Date and Time Date of Service 11/01/2016 Time of Evaluation 1000 Subjective Subjective: No Chest Pain, No shortness of breath, No Palpitations, No Dizziness Vitals Vitals Vital Signs Date Time Temp Pulse Resp B/P Pulse Ox O2 Delivery O2 Flow Rate FiO2 11/01/16 08:28 84 121/79 11/01/16 07:00 98.1 20 98 Room Air 98.1 Weight Weight [ ] Input and Output Intake and Output Intake and Output 11/01/16 07:00 Intake Total 2420 ml Balance 2420 ml Intake Oral 2420 ml # Voids 5 # Bowel Movements 1 Laboratory Labs Laboratory Tests Test 10/31/16 13:10 10/31/16 16:27 10/31/16 20:28 11/01/16 05:05 Erythrocyte Sedimentation Rate 29 (0-15) Troponin I Quantitative 0.019ng/mL (0.000-0.055) Glucose (Fingerstick) 219mg/dL (70-99) 303mg/dL (70-99) Sodium Level 137mmol/L (136-145) Potassium Level 3.8mmol/L (3.5-5.1) Chloride Level 103mmol/L (98-107) Carbon Dioxide Level 23mmol/L (21-32) Anion Gap 11 (6-14) Blood Urea Nitrogen 18mg/dL (8-26) Creatinine 1.3mg/dL (0.7-1.3) Estimated GFR (Cockcroft-Gault) 71.3 Glucose Level 300mg/dL (70-99) Calcium Level 9.1mg/dL (8.5-10.1) Test 11/01/16 07:31 Glucose (Fingerstick) 312mg/dL (70-99) Physical Exam HEENT: Neck Supple W Full Motion Chest: Symmetric LUNGS: Clear to Auscultation Heart: S1S2, RRR, murmurs (diastolic murmur 5/6 diastolic murmur to LLS border) Abdomen: Soft N/T Extremities: No Calf Tenderness Neurology: alert, oriented, follow commands Assessment Assessment 1. Uncontrolled DM2: remains in the 300s 2. Mild AI: no pericarditis. Troponin series normal. Diffuse nonspecific ST elevation from early repolarization. TTE with normal wall motion and EF. 3. HTN: controlled 5. HLP 6. CKD: past ESRD/dialysis resolved with renal transplant, Remains stable 7. Chronic immunosuppressions: with prednisone and prograf and myfortic. 8. ALYSIA: broken CPAP, off it for 6 months now. 9. Fatigue/MOSQUERA: Clinically no CHF. Likely from immunosuppression, and uncontrolled DM Recommendations 1. Outpt TTE q1-2 yrs 2. Continue with secondary prevention. 3. Optimize BG and ALYISA control 4. Lifestyle modifications, diet and exercise. No further cardiac recommendation at this time 5. Outpt Cardiac follow up PRN. DALILA WORTHY APRN Nov 01, 2016 10:49
[2016-11-01 11:13] VITALS: BP 122/71
--- NOTE | 2016-11-01 14:54 | PDOC ---
SUBJECTIVE Subjective No complaints at present. Blood sugar still running high. Voiding okay. Had a bowel movement. Denies any shortness of breath or chest pain at present. OBJECTIVE Vital Signs Vital Signs Date Time Temp Pulse Resp B/P Pulse Ox O2 Delivery O2 Flow Rate FiO2 11/01/16 11:13 97.9 78 16 122/71 98 Room Air 97.9 11/01/16 08:28 84 121/79 11/01/16 08:27 84 121/79 11/01/16 08:27 84 121/79 11/01/16 07:00 98.1 84 20 121/79 98 Room Air 98.1 11/01/16 03:00 98.1 90 20 132/84 96 Room Air 98.1 10/31/16 23:00 96.8 90 20 143/81 95 Room Air 96.8 10/31/16 20:42 78 129/78 10/31/16 19:00 97.9 79 20 114/75 98 Room Air 97.9 10/31/16 17:16 85 112/70 I & O Intake and Output 11/01/16 07:00 Intake Total 2420 ml Balance 2420 ml Intake Oral 2420 ml # Voids 5 # Bowel Movements 1 PHYSICAL EXAM Physical Exam General: No acute distress. Sitting at the bedside Mental status: Alert and oriented. Chest: Clear to auscultation. Decreased air movement throughout CV: Normal rate. Regular rhythm. 2/6 systolic murmur. Abdomen: Normal bowel sounds. Soft, obese. Not distended. No tenderness. No guarding. No rebound. Extremities: No lower extremity edema. ASSESSMENT/PLAN Assessment/Plan 1. Uncontrolled DM2: Improving slightly but remained in the 300s. Continue current insulin. Restart oral medications, Actos and glipizide. C-peptide is pending. 2. Mild AI: no pericarditis. TTE with normal wall motion and EF. No further additional treatment. Monitor every 1-2 years. 3. HTN: Well controlled at present. 5. HLP: Stable 6. CKD: past ESRD/dialysis s/p renal transplant: Remains stable 7. Chronic immunosuppressions: with prednisone, prograf and myfortic. 8. ALYSIA: Machine works well and it is relatively new. He got it from [facility] when he was in [place]. He lost the power cord in his move back to [place]. We' ll see if social work can give him the information to call [employer] to try and get a replacement power cord for his machine. 9. Fatigue/MOSQUERA: Clinically no CHF. Likely from immunosuppression, and uncontrolled DM. 10. Disposition: We'll try to get his blood sugars under 200. Once we do that we can make further adjustments as an outpatient. 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 Problems: COMMENT Lab Laboratory Tests Test 10/31/16 16:27 10/31/16 20:28 11/01/16 05:05 11/01/16 07:31 Glucose (Fingerstick) 219mg/dL (70-99) 303mg/dL (70-99) 312mg/dL (70-99) Sodium Level 137mmol/L (136-145) Potassium Level 3.8mmol/L (3.5-5.1) Chloride Level 103mmol/L (98-107) Carbon Dioxide Level 23mmol/L (21-32) Anion Gap 11 (6-14) Blood Urea Nitrogen 18mg/dL (8-26) Creatinine 1.3mg/dL (0.7-1.3) Estimated GFR (Cockcroft-Gault) 71.3 Glucose Level 300mg/dL (70-99) Calcium Level 9.1mg/dL (8.5-10.1) Test 11/01/16 10:27 Glucose (Fingerstick) 362mg/dL (70-99) ALIISA WU MD Nov 01, 2016 14:54
[2016-11-01] MEDS ORDERED: DEXTROSE 50% 25 GM / 50ML DISP.SYRIN. IV PRN (15:00)
[2016-11-01 15:03] VITALS: BP 120/72
[2016-11-01] MEDS: GLIPIZIDE 5 MG TABLET PO SCH (16:22)
[2016-11-01] MEDS: PIOGLITAZONE 15 MG TABLET. PO SCH (16:22)
[2016-11-01 19:00] VITALS: BP 120/73
[2016-11-01] MEDS: ATORVASTATIN CALCIUM 10 MG TABLET. PO SCH (20:51)
[2016-11-01] MEDS: INSULIN DETEMIR 300 UNITS/3 ML INSULN.PEN. SQ SCH (20:56)
[2016-11-01 23:00] VITALS: BP 112/70
[2016-11-02 07:00] VITALS: BP 151/94
--- NOTE | 2016-11-02 08:01 | PDOC ---
SUBJECTIVE Subjective Feeling okay. No shortness of breath. No cough. No swelling. Voiding okay. Eating okay. Blood sugar was improved last night but elevated again this morning. OBJECTIVE Vital Signs Vital Signs Date Time Temp Pulse Resp B/P Pulse Ox O2 Delivery O2 Flow Rate FiO2 11/02/16 03:00 Room Air 11/01/16 23:00 98.5 81 18 112/70 99 Room Air 98.5 11/01/16 20:51 78 120/73 11/01/16 20:14 Room Air 11/01/16 19:00 98.9 78 18 120/73 98 Room Air 98.9 11/01/16 16:23 83 120/72 11/01/16 15:03 98.2 83 16 120/72 96 Room Air 98.2 11/01/16 11:13 97.9 78 16 122/71 98 Room Air 97.9 11/01/16 08:28 84 121/79 11/01/16 08:27 84 121/79 11/01/16 08:27 84 121/79 I & O Intake and Output 11/02/16 07:00 Intake Total 1620 ml Balance 1620 ml Intake Oral 1620 ml # Voids 4 PHYSICAL EXAM Physical Exam General: No acute distress. Sitting at the bedside Mental status: Alert and oriented. Chest: Clear to auscultation. Decreased air movement mainly at the bases today CV: Normal rate. Regular rhythm. 2/6 systolic murmur. Abdomen: Normal bowel sounds. Soft, obese. Not distended. No tenderness. No guarding. No rebound. Extremities: No lower extremity edema. ASSESSMENT/PLAN Assessment/Plan 1. Uncontrolled DM2: Improving. Continue current insulin with reduced mealtime dose. Restart oral medications, Actos and glipizide. C-peptide is pending. 2. Mild AI: no pericarditis. TTE with normal wall motion and EF. No further additional treatment. Monitor every 1-2 years. 3. HTN: Well controlled at present. 5. HLP: Stable 6. CKD: past ESRD/dialysis s/p renal transplant: Remains stable 7. Chronic immunosuppressions: with prednisone, prograf and myfortic. 8. ALYSIA: Machine works well and it is relatively new. He got it from [facility] when he was in [place]. He lost the power cord in his move back to [place]. We' ll see if social work can give him the information to call [employer] to try and get a replacement power cord for his machine. 9. Fatigue/MOSQUERA: Clinically no CHF. Likely from immunosuppression, and uncontrolled DM. 10. Disposition: We'll try to get his blood sugars under 200. Once we do that we can make further adjustments as an outpatient. Hopefully he'll be doing well enough with adjustment medications and he'll be able to go home tomorrow depending on what his blood sugars are today. 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 Problems: COMMENT Lab Laboratory Tests Test 11/01/16 10:27 11/01/16 16:46 11/01/16 20:48 Glucose (Fingerstick) 362mg/dL (70-99) 181mg/dL (70-99) 231mg/dL (70-99) ALISIA WU MD Nov 02, 2016 08:01
[2016-11-02] MEDS: TACROLIMUS 1 MG CAPSULE PO SCH ×2 (08:33→21:44)
[2016-11-02] MEDS: GLIPIZIDE 5 MG TABLET PO SCH ×2 (08:34→17:45)
[2016-11-02] MEDS: PIOGLITAZONE 15 MG TABLET. PO SCH (08:34)
[2016-11-02] MEDS: MYCOPHENOLATE ACID 180 MG TABLET.DR. PO SCH (08:34)
[2016-11-02] MEDS: HYDRALAZINE 50 MG TABLET PO SCH ×2 (08:35→21:43)
[2016-11-02] MEDS: CARVEDILOL 12.5 MG TABLET PO SCH ×2 (08:35→17:45)
[2016-11-02] MEDS: PANTOPRAZOLE 40 MG TABLET. PO SCH (08:35)
[2016-11-02] MEDS: ALLOPURINOL 300 MG TABLET. PO SCH (08:36)
[2016-11-02] MEDS: PREDNISONE 5 MG TABLET PO SCH (08:36)
[2016-11-02] MEDS: AMLODIPINE BESYLATE 10 MG TABLET PO SCH (08:37)
[2016-11-02] MEDS: INSULIN ASPART 300 UNITS/3 ML INSULN.PEN SQ SCH ×6 (08:44→17:52)
[2016-11-02] MEDS: MAGNESIUM OXIDE 400 MG TABLET PO SCH (10:37)
[2016-11-02 11:00] VITALS: BP 133/67
[2016-11-02 15:00] VITALS: BP 125/75
[2016-11-02 19:00] VITALS: BP 134/80
[2016-11-02] MEDS: ATORVASTATIN CALCIUM 10 MG TABLET. PO SCH (21:43)
[2016-11-02] MEDS: INSULIN DETEMIR 300 UNITS/3 ML INSULN.PEN. SQ SCH (21:50)
[2016-11-02 22:52] VITALS: BP 133/76
[2016-11-03 07:29] VITALS: BP 139/91
[2016-11-03] MEDS ORDERED: CARVEDILOL 12.5 MG TABLET. PO SCH (08:00)
[2016-11-03] MEDS ORDERED: AMLODIPINE BESYLATE 10 MG TABLET. ONE (08:20)
[2016-11-03] MEDS: PANTOPRAZOLE 40 MG TABLET. PO SCH ×2 (08:44→08:45)
[2016-11-03] MEDS: HYDRALAZINE 50 MG TABLET PO SCH (08:44)
[2016-11-03] MEDS: GLIPIZIDE 5 MG TABLET PO SCH ×2 (08:44→16:30)
[2016-11-03] MEDS: MYCOPHENOLATE ACID 180 MG TABLET.DR. PO SCH (08:44)
[2016-11-03] MEDS: PIOGLITAZONE 15 MG TABLET. PO SCH (08:45)
[2016-11-03] MEDS: AMLODIPINE BESYLATE 10 MG TABLET PO SCH (08:45)
[2016-11-03] MEDS: ALLOPURINOL 300 MG TABLET. PO SCH (08:45)
[2016-11-03] MEDS: TACROLIMUS 1 MG CAPSULE PO SCH (08:46)
[2016-11-03] MEDS: INSULIN ASPART 300 UNITS/3 ML INSULN.PEN SQ SCH ×4 (08:52→12:05)
[2016-11-03] MEDS: PREDNISONE 5 MG TABLET PO SCH (09:00)
[2016-11-03 11:14] VITALS: BP 125/77
[2016-11-03] MEDS: MAGNESIUM OXIDE 400 MG TABLET PO SCH (11:59)
--- NOTE | 2016-11-03 14:30 | DISCH ---
DISCHARGE INSTRUCTIONS Condition on Discharge Condition on Discharge: Stable Activity After Discharge Activity Instructions for Disc: Activity as tolerated Diet after Discharge Diet after Discharge: Cardiac, Diabetic No Calorie Level Checks after Discharge Checks after discharge: Check blood sugar, ac/hs (At least BID, record and bring to appt) Contacting the [facility] after DC Call your doctor for: If your condition worsens Follow-Up Follow up with: Dr Wu end of next week, call [phone] for appt ALISIA WU MD Nov 03, 2016 14:30
[2016-11-03] MEDS ORDERED: AMOX875T PO (14:39)
[2016-11-03] MEDS ORDERED: INSU100I27 SQ (14:39)
[2016-11-03] MEDS ORDERED: INSU100I17 SQ (14:39)
[2016-11-03] MEDS ORDERED: PIOG15TA21 PO (14:39)
--- NOTE | 2016-11-03 14:40 | PDOC ---
Provider Note Provider Note See discharge summary dictation #[id number] ALISIA WU MD Nov 03, 2016 14:40
[2016-11-03] MEDS ORDERED: INSULIN DETEMIR 300 UNITS/3 ML INSULN.PEN. SQ ONE (16:15)
[2016-11-03] MEDS ORDERED: ATORVASTATIN CALCIUM 10 MG TABLET. PO SCH (21:00)
--- NOTE | 2016-11-03 23:36 | DS ---
DATE OF DISCHARGE: 11/03/2016 ATTENDING PHYSICIAN: Alisia Wu M.D. CHIEF COMPLAINT: High blood sugar. HISTORY OF PRESENT ILLNESS: The patient is a 46-year-old male who had been on oral diabetic medications for several years. His blood pressure had been well controlled until recently when he noticed that they were very high up to the 500 range. He was seen at the Emergency Room twice for this in the past 2 weeks and he was treated as an outpatient and discharged. His high blood sugars continued and he began feeling worse with more fatigue and other symptoms consistent with his high blood sugar. He presented to the Emergency Room and it was noted that his initial blood sugar was 546. HOSPITAL COURSE: The patient was admitted. He was started on insulin drip and fluids. He responded well to that. He was then transitioned to intermittent insulin with once daily Levemir and 3 times a day meal time insulin. With better control in his blood sugars, we did try to transition him back to his oral medications to minimize his insulin need. He did have a C-peptide that was done and that was in the normal range, so I think that he should still be able to produce some insulin. During the hospitalization, it was noted that he did have some soreness and swelling to the left lower gum line. He was started on antibiotics ____ at the time of discharge and that may be contributing to his recently elevated blood sugars. At the time of discharge, he was tolerating his diet without any difficulty. He was feeling much better. He was ready to go home. PHYSICAL EXAMINATION: GENERAL: He is alert, in no distress. VITAL SIGNS: He is afebrile. His vital signs are stable. CHEST: Clear to auscultation bilaterally with fair air movement. HEART: Had a regular rate and rhythm without murmur. ABDOMEN: Obese and nontender. EXTREMITIES: Without edema. He was ambulating independently. LABORATORY DATA: At the time of discharge, WBC 5.9 with hemoglobin 12.3 and sedimentation rate 29. UA with specific gravity of greater than 1.030 with glucose greater than ____, 100 protein, trace blood, negative ketones. Initial sodium 132, potassium 4.5, BUN 25, creatinine 1.6. Later during the hospitalization, sodium was 137, potassium 3.8, BUN 18, creatinine 1.3. Troponins were negative. C-peptide was 2.9 with a normal range of 1.1-4.4. DISCHARGE DIAGNOSES: 1. Uncontrolled diabetes mellitus type 2. 2. Mild aortic insufficiency. 3. Hypertension. 4. Hyperlipidemia. 5. Chronic kidney disease with a history of end-stage renal disease on dialysis, but now status post renal transplant, on immunosuppression. 6. Chronic immunosuppression secondary to renal transplant. 7. Obstructive sleep apnea. 8. Gingivitis which could be contributing to his elevated blood sugars. DISCHARGE DIET: Diabetic diet, cardiac diet. DISCHARGE ACTIVITIES: As tolerated. FOLLOWUP: The patient is to follow up with me at the end of next week. DISCHARGE MEDICATIONS: Include amoxicillin 875 mg p.o. b.i.d., NovoLog 20 units t.i.d. with meals, Levemir 30 units daily at bedtime, Actos 45 mg p.o. daily, allopurinol 300 mg p.o. daily, Norvasc 10 mg p.o. daily, Coreg 25 mg p.o. b.i.d., glimepiride 4 mg p.o. b.i.d., hydralazine 100 mg p.o. b.i.d., magnesium oxide 400 mg 2 p.o. daily, Myfortic 360 mg p.o., omeprazole 40 mg p.o. daily, pravastatin 20 mg p.o. daily, prednisone 7.5 mg p.o. daily, Prograf 1 mg 3 capsules p.o. b.i.d. ALISIA WU MD DR: CATHERINE/nadine JOB#: [id number] / [id number]
== END 2016-11-03 16:41 | disposition home or self-care (01) | DRG 638 ==
LOC: ER 21:34 → 5 NORTH 22:42
PROVIDERS: ADMIT Family Medicine; ATTEND Family Medicine
PROC: B24BZZZ Ultrasonography of Heart with Aorta (ICD-10-PCS; principal; 2016-11-01)
DX: E11.65 Type 2 diabetes mellitus with hyperglycemia (principal); I13.2 Hypertensive heart and chronic kidney disease with heart failure and with stage 5 chronic kidney disease, or end stage renal disease; Z94.0 Kidney transplant status; I50.9 Heart failure, unspecified; E11.22 Type 2 diabetes mellitus with diabetic chronic kidney disease; M19.90 Unspecified osteoarthritis, unspecified site; E66.9 Obesity, unspecified; E78.5 Hyperlipidemia, unspecified; E86.0 Dehydration; G47.33 Obstructive sleep apnea (adult) (pediatric); I35.1 Nonrheumatic aortic (valve) insufficiency; K05.10 Chronic gingivitis, plaque induced; K21.9 Gastro-esophageal reflux disease without esophagitis; M10.9 Gout, unspecified; Z79.899 Other long term (current) drug therapy; Z90.49 Acquired absence of other specified parts of digestive tract; Z91.19 Patient's noncompliance with other medical treatment and regimen; Z99.2 Dependence on renal dialysis; Z88.8 Allergy status to other drugs, medicaments and biological substances
CPT/HCPCS: 36415; 71010; 80048; 80053; 81001; 82553; 82947; 84484; 84681; 85027; 85651; 93005; 93306; 96360; J1815; J7030; J7040; J7507; J7512; 99285-25

== ENCOUNTER 2017-05-15 14:42 | Inpatient (IN) | payer BC, MEDICARE ==
[~2017-05-15] VITALS: Ht 182.9 cm; Wt 127.1 kg
[~2017-05-15 14:42] MED LIST changes: +ALLO300T PO; +AMLO5TAB2 PO; +AMOX875T PO; +GLIM4TAB2 PO; +HYDR100T24 PO; +INSU100I17 SQ; +INSU100I27 SQ; +MAGN400C PO; +PIOG15TA2 PO; +PIOG15TA42 PO; +POTA20TA82 PO; +PRAV20TA2 PO; +PRED5TAB PO; +TACR5CAP4 PO
[2017-05-15] MEDS ORDERED: ASPIRIN 325 MG TABLET PO ONE (15:15)
[2017-05-15] MEDS ORDERED: IV NORMAL SALINE 1000ML BAG 1,000 ML IV ONE (15:15)
--- NOTE | 2017-05-15 15:28 | EKG ---
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
[2017-05-15 15:33] LABS: BASO % 1 % (0-3); EOS % 4 % (0-3); HEMATOCRIT 38.3 % (39.0-53.0); HEMOGLOBIN 12.3 g/dL (13.0-17.5); LYMPH # 1.4 x10^3/uL (1.0-4.8); LYMPH % 27 % (24-48); MEAN CORPUSCULAR HEMOGLOBIN 25 pg (25-35); MEAN CORPUSCULAR HGB CONC 32 g/dL (31-37); MEAN CORPUSCULAR VOLUME 79 fL (79-100); MONO % 14 % (0-9); NEUT % 55 % (31-73); PLATELET COUNT 188 x10^3/uL (140-400); RED BLOOD COUNT 4.84 x10^6/uL (4.30-5.70); RED CELL DISTRIBUTION WIDTH 13.4 % (11.5-14.5); WHITE BLOOD COUNT 5.1 x10^3/uL (4.0-11.0)
--- NOTE | 2017-05-15 15:37 | RAD ---
Indication chest pain. A single view of the chest was obtained. Comparison is made to a study 10/30/2016. Heart size and pulmonary vessels are within normal limits. There is no acute parenchymal infiltrate. Significant pleural fluid is not seen. There is no pneumothorax. There has not been a significant change compared to the previous exam. IMPRESSION: No acute or focal process. No significant change
[2017-05-15 15:42] LABS: PROTHROMBIN TIME PATIENT 12.3 SEC (11.7-14.0)
[2017-05-15 15:47] LABS: CALCIUM 9.7 mg/dL (8.5-10.1); CREATININE 1.5 mg/dL (0.7-1.3); GFR 60.4
[2017-05-15 15:54] LABS: ALBUMIN 3.6 g/dL (3.4-5.0); ALBUMIN/GLOBULIN RATIO 0.8 (1.0-1.7); MAGNESIUM 1.3 mg/dL (1.8-2.4); TOTAL BILIRUBIN 0.3 mg/dL (0.2-1.0)
--- NOTE | 2017-05-15 16:06 | EKG ---
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
[2017-05-15] MEDS ORDERED: DEXTROSE 50% 25 GM / 50ML DISP.SYRIN. IV PRN (16:45)
--- NOTE | 2017-05-15 16:50 | PHYS DOC ---
Past Medical History Past Medical History: CHF, Hypertension, Other Additional Past Medical Histor: KIDNEY FAILURE, BAD HEART VALVE, Past Surgical History: Appendectomy, Other Additional Past Surgical Histo: KIDNEY TRANSPLANT, AV FISTULA LEFT ARM Alcohol Use: None Drug Use: None Adult General Chief Complaint Chief Complaint: MULTIPLE COMPLAINTS HPI HPI Patient is a 46 year old male who presents with chest pain & hyperglycemia. The patient reports history of type 2 diabetes typically only taking oral medication, with 2-3 week history of blood glucose elevated into the 300s to 400s. Reports polyuria and polydipsia. Also reports intermittent exertional chest pain, most recent onset while checking in at triage desk in the emergency department. Pain is brief, substernal, sharp/tight, nonradiating, associated with shortness of breath. Denies nausea or diaphoresis. Denies fevers or chills , cough, lower extremity pain or swelling. Denies previous history of similar pain but has been having frequent episodes of that over the past week. Denies history of CAD or CHF, no history of DVT or PE. Nonsmoker. PCP is Dr. Melendez. Review of Systems Review of Systems Constitutional: Denies fever or chills Eyes: Denies change in visual acuity HENT: Denies nasal congestion or sore throat Respiratory: Denies cough or reports shortness of breath Cardiovascular: For chest pain, denies edema GI: Denies abdominal pain, nausea, vomiting, bloody stools or diarrhea : Denies dysuria or hematuria Musculoskeletal: Denies back pain or joint pain Integument: Denies rash or skin lesions Neurologic: Denies headache, focal weakness or sensory changes Endocrine: Reports polyuria and polydipsia. Current Medications Current Medications Current Medications Medications (Trade) Dose Ordered Sig/Bertram Start Time Stop Time Status Last Admin Dose Admin Aspirin (Don Aspirin) 325 mg 1X ONCE 05/15/17 15:15 05/15/17 15:16 DC 05/15/17 15:39 325 MG Sodium Chloride 1,000 ml @ 1,000 mls/hr 1X ONCE 05/15/17 15:15 05/15/17 16:14 DC 05/15/17 15:40 1,000 MLS/HR Allergies Allergies Allergies Coded Allergies Type Severity Reaction Last Updated Verified clonidine Allergy Intermediate 10/31/16 Yes Physical Exam Physical Exam Constitutional: Obese, no acute distress, non-toxic appearance. HENT: Normocephalic, atraumatic, bilateral external ears normal, oropharynx moist, nose normal. Eyes: PERRLA, EOMI, conjunctiva normal, no discharge. Neck: supple, no stridor. Cardiovascular: RRR, no murmurs, no edema. Lungs & Thorax: LCTAB, no wheezing, no respiratory distress. No reproducible tenderness with palpation over the anterior chest wall Abdomen: soft, nontender, nondistended. Skin: Warm, dry, no erythema, no rash. Back: No tenderness. Extremities: No tenderness, no edema. No calf tenderness or swelling Neurologic: Alert and oriented X 3, no focal deficits noted. Psychologic: Affect normal, judgement normal, mood normal. Current Patient Data Vital Signs Vital Signs Date Time Temp Pulse Resp B/P (MAP) Pulse Ox O2 Delivery O2 Flow Rate FiO2 05/15/17 14:55 98.4 78 18 128/68 (88) 96 Room Air 98.4 Lab Values Laboratory Tests Test 05/15/17 15:01 05/15/17 15:05 Glucose (Fingerstick) 463 mg/dL (70-99) H White Blood Count 5.1 x10^3/uL (4.0-11.0) Red Blood Count 4.84 x10^6/uL (4.30-5.70) Hemoglobin 12.3 g/dL (13.0-17.5) L Hematocrit 38.3 % (39.0-53.0) L Mean Corpuscular Volume 79 fL (79-100) Mean Corpuscular Hemoglobin 25 pg (25-35) Mean Corpuscular Hemoglobin Concent 32 g/dL (31-37) Red Cell Distribution Width 13.4 % (11.5-14.5) Platelet Count 188 x10^3/uL (140-400) Neutrophils (%) (Auto) 55 % (31-73) Lymphocytes (%) (Auto) 27 % (24-48) Monocytes (%) (Auto) 14 % (0-9) H Eosinophils (%) (Auto) 4 % (0-3) H Basophils (%) (Auto) 1 % (0-3) Neutrophils # (Auto) 2.8 x10^3uL (1.8-7.7) Lymphocytes # (Auto) 1.4 x10^3/uL (1.0-4.8) Monocytes # (Auto) 0.7 x10^3/uL (0.0-1.1) Eosinophils # (Auto) 0.2 x10^3/uL (0.0-0.7) Basophils # (Auto) 0.0 x10^3/uL (0.0-0.2) Prothrombin Time 12.3 SEC (11.7-14.0) Prothrombin Time INR 1.0 (0.8-1.1) PTT 32 SEC (24-38) Sodium Level 133 mmol/L (136-145) L Potassium Level 4.0 mmol/L (3.5-5.1) Chloride Level 98 mmol/L (98-107) Carbon Dioxide Level 26 mmol/L (21-32) Anion Gap 9 (6-14) Blood Urea Nitrogen 24 mg/dL (8-26) Creatinine 1.5 mg/dL (0.7-1.3) H Estimated GFR (Cockcroft-Gault) 60.4 BUN/Creatinine Ratio 16 (6-20) Glucose Level 425 mg/dL (70-99) H Calcium Level 9.7 mg/dL (8.5-10.1) Magnesium Level 1.3 mg/dL (1.8-2.4) L Total Bilirubin 0.3 mg/dL (0.2-1.0) Aspartate Amino Transferase (AST) 18 U/L (15-37) Alanine Aminotransferase (ALT) 20 U/L (16-63) Alkaline Phosphatase 78 U/L (46-116) Troponin I Quantitative < 0.017 ng/mL (0.000-0.055) QD-Bfx-X-Type Natriuretic Peptide 44 pg/mL (0-124) Total Protein 8.0 g/dL (6.4-8.2) Albumin 3.6 g/dL (3.4-5.0) Albumin/Globulin Ratio 0.8 (1.0-1.7) L Laboratory Tests 05/15/17 15:05 Laboratory Tests 05/15/17 15:05 EKG EKG 1501: interpreted by me: NSR rate 79, subtle diffuse ST elevation < 1 mm without reciprocal changes, possible slight CA depression diffusely, normal intervals, no ectopy. 1535: interpreted by me: NSR rate 79, no significant changes from prior EKG, normal intervals, no ectopy.[] Radiology/Procedures Radiology/Procedures PROCEDURE: CHEST AP ONLY Indication chest pain. A single view of the chest was obtained. Comparison is made to a study 10/30/2016. Heart size and pulmonary vessels are within normal limits. There is no acute parenchymal infiltrate. Significant pleural fluid is not seen. There is no pneumothorax. There has not been a significant change compared to the previous exam. IMPRESSION: No acute or focal process. No significant change DICTATED and SIGNED BY: RASHAD RED MD DATE: 05/15/17 1533[] Course & Med Decision Making Course & Med Decision Making Pertinent Labs and Imaging studies reviewed. (See chart for details) The patient presents with chest pain & hyperglycemia. Gave aspirin & IV fluids. Pain had resolved by the time he arrived in the room, did not require any pain meds, no return of symptoms while in the ED. Obtained labs, EKG, CXR. EKG abnormal with very slight diffuse ST elevation, no evolution or changes with repeat EKG, negative troponin, remains pain free. Consulted with cardiology nurse practitioner as well as Dr. Ramirez, agree with admit & rule out. Will repeat accucheck after NS bolus completed, initiate sliding scale insulin. Not in DKA but significantly hyperglycemic probably needing to be on insulin at discharge. Discussed with Dr. Pérez who agrees to admit to inpatient status. The patient is admitted in stable condition. [] Dragon Disclaimer Dragon Disclaimer This electronic medical record was generated, in whole or in part, using a voice recognition dictation system. Departure Departure Impression: Primary Impression: Chest pain Additional Impression: Hyperglycemia Disposition: ADMITTED INPATIENT Admitting Physician: Heavenly Pérez Condition: STABLE Problem Qualifiers WENDY TORRES MD May 15, 2017 16:50
[2017-05-15] MEDS ORDERED: INSULIN ASPART 300 UNITS/3 ML INSULN.PEN SQ SCH (17:00)
[2017-05-15] MEDS: MAGNESIUM OXIDE 400 MG TABLET PO SCH ×2 (17:04→21:31)
--- NOTE | 2017-05-15 17:21 | PDOC1 ---
History and Physical Date of Admission Date of Admission DATE: 05/15/17 TIME: 17:15 Identification/Chief Complaint Chief Complaint chest pain Problems: Source Source: Chart review, Patient History of Present Illness History of Present Illness Mr. Pérez, is a 46 year old male admit from ER for chest pain. Also noted , hyperglycemia, type 2 diabetes typically only taking oral medication, cannot afford the Levemir insulin that Dr. Melendez started neck mid sternal chest pain, dull pain, ache, not pressure, better here than at home. Also reports intermittent exertional chest pain, most recent onset while checking in at triage desk in the emergency department. . Denies nausea or diaphoresis. Denies fevers or chills, cough, lower extremity pain or swelling. Denies previous history of similar pain but has been having frequent episodes of that over the past week. Denies history of CAD or CHF, no history of DVT or PE. PCP is Dr. Melendez. Past Medical History Cardiovascular: HTN Pulmonary: Other CENTRAL NERVOUS SYSTEM: Other GI: GERD Heme/Onc: No pertinent hx Hepatobiliary: No pertinent hx Psych: No pertinent hx Musculoskeletal: Osteoarthritis Rheumatologic: Gout Infectious disease: Other Renal/: Chronic renal insuff, Chronic renal failure, Other Endocrine: Diabetes Past Surgical History Past Surgical History: Hernia Repair, Other Family History Family History: No Significant Social History Smoke: No ALCOHOL: none Drugs: None Current Problem List Problem List Problems Medical Problems: (1) Chest pain Status: Acute (2) Hyperglycemia Status: Acute Problems: Current Medications Current Medications Current Medications Sodium Chloride 1,000 ml @ 1,000 mls/hr 1X ONCE IV Last administered on t 15:40; Start 05/15/17 at 15:15; Stop 05/15/17 at 16:14; Status DC Aspirin (Don Aspirin) 325 mg 1X ONCE PO Last administered on 05/15/17t 15:39 ; Start 05/15/17 at 15:15; Stop 05/15/17 at 15:16; Status DC Insulin Aspart (NovoLOG) 0-7 UNITS TIDWMEALS SQ ; Start 05/15/17 at 17:00 Dextrose (Dextrose 50%-Water Syringe) 12.5 gm PRN Q15MIN PRN IV SEE COMMENTS; Start 05/15/17 at 16:45 Magnesium Oxide (Magnesium Oxide) 400 mg BID PO Last administered on 05/15/17t 17:04; Start 05/15/17 at 17:00; Stop 05/16/17 at 21:01 Active Scripts Active Amoxicillin 875 Mg Tablet 1 Tab PO BID Novolog Flexpen (Insulin Aspart) 100 Unit/1 Ml Insuln.pen 20 Units SQ TIDWMEALS Levemir Flextouch (Insulin Detemir) 100 Unit/1 Ml Insuln.pen 30 Units SQ QHS Actos (Pioglitazone Hcl) 15 Mg Tablet 45 Mg PO DAILY Reported Pravastatin Sodium 20 Mg Tablet 20 Mg PO HS Magnesium (Magnesium Oxide) 400 Mg Capsule 2 Cap PO DAILY Prednisone 5 Mg Tablet 5 Mg PO DAILY Glimepiride 4 Mg Tablet 4 Mg PO BID Allopurinol 300 Mg Tablet 300 Mg PO DAILY Amlodipine Besylate 5 Mg Tablet 10 Mg PO DAILY Hydralazine Hcl 100 Mg Tablet 100 Mg PO BID Omeprazole 40 Mg Capsule.dr 40 Mg PO DAILY Carvedilol 25 Mg Tablet 1 Tab PO BID Prednisone 2.5 Mg Tablet 2.5 Mg PO DAILY Myfortic (Mycophenolate Sodium) 360 Mg Tablet.dr 360 Mg PO Prograf (Tacrolimus) 1 Mg Capsule 3 Cap PO BID Allergies Allergies: Coded Allergies: clonidine (Verified Allergy, Intermediate, 10/31/16) " I don't feel right" ROS General: No: Chills, Night Sweats, Fatigue, Malaise, Appetite, Other PSYCHOLOGICAL ROS: No: Anxiety, Behavioral Disorder, Concentration difficultie , Decreased libido, Depression, Disorientation, Hallucinations, Hostility, Irritablity, Memory difficulties, Mood Swings, Obsessive thoughts, Physical abuse, Sexual abuse, Sleep disturbances, Suicidal ideation, Other Eyes: No Blurry vision, No Decreased vision, No Double vision, No Dry eyes, No Excessive tearing, No Eye Pain, No Itchy Eyes, No Loss of vision, No Photophobia , No Scotomata, No Uses contacts, No Uses glasses, No Other HEENT: No: Heacaches, Visual Changes, Hearing change, Nasal congestion, Nasal discharge, Oral lesions, Sinus pain, Sore Throat, Epistaxis, Sneezing, Snoring, Tinnitus, Vertigo, Vocal changes, Other Respiratory: YES: Shortness of breath, SOB with excertion, Tachypnea, No: Cough, Hemoptysis, Orthopnea, Pleuritic Pain, Sputum Changes, Stridor, Wheezing, Other Cardiovascular: yes Chest Pain Gastrointestinal: No Nausea, No Vomiting, No Abdominal Pain, No Diarrhea, No Constipation, No Melena, No Hematochezia, No Other Genitourinary: No Dysuria, No Frequency, No Incontinence, No Hematuria, No Retention, No Discharge, No Urgency, No Pain, No Flank Pain, No Other, No , No , No , No , No , No , No Musculoskeletal: Yes Joint Stiffness, No Gait Disturbance, No Joint Pain, No Joint Swelling, No Muscle Pain, No Muscular Weakness, No Pain In:, No Swelling In:, No Other Neurological: No Behavorial Changes, No Bowel/Bladder ControlChng, No Confusion , No Dizziness, No Gait Disturbance, No Headaches, No Impaired Coord/balance, No Memory Loss, No Numbness/Tingling, No Seizures, No Speech Problems, No Tremors, No Visual Changes, No Weakness, No Other Skin: Yes Dry Skin, No Eczema, No Hair Changes, No Lumps, No Mole Changes, No Mottling, No Nail Changes, No Pruritus, No Rash, No Skin Lesion Changes, No Other, No Acne Physical Exam General: Alert, No acute distress HEENT: PERRLA, EOMI Lungs: Clear to auscultation Heart: no gallops, no murmurs Abdomen: Normal bowel sounds Extremities: No edema Skin: No breakdown, No significant lesion Neuro: Normal gait, Normal tone, Sensation intact, Cranial nerves 3-12 NL Psych/Mental Status: Mood NL Vitals Vitals Vital Signs Date Time Temp Pulse Resp B/P (MAP) Pulse Ox O2 Delivery O2 Flow Rate FiO2 05/15/17 14:55 98.4 78 18 128/68 (88) 96 Room Air 98.4 Labs Labs Laboratory Tests Test 05/15/17 15:01 05/15/17 15:05 05/15/17 17:06 Glucose (Fingerstick) 463 mg/dL (70-99) 363 mg/dL (70-99) White Blood Count 5.1 x10^3/uL (4.0-11.0) Red Blood Count 4.84 x10^6/uL (4.30-5.70) Hemoglobin 12.3 g/dL (13.0-17.5) Hematocrit 38.3 % (39.0-53.0) Mean Corpuscular Volume 79 fL (79-100) Mean Corpuscular Hemoglobin 25 pg (25-35) Mean Corpuscular Hemoglobin Concent 32 g/dL (31-37) Red Cell Distribution Width 13.4 % (11.5-14.5) Platelet Count 188 x10^3/uL (140-400) Neutrophils (%) (Auto) 55 % (31-73) Lymphocytes (%) (Auto) 27 % (24-48) Monocytes (%) (Auto) 14 % (0-9) Eosinophils (%) (Auto) 4 % (0-3) Basophils (%) (Auto) 1 % (0-3) Neutrophils # (Auto) 2.8 x10^3uL (1.8-7.7) Lymphocytes # (Auto) 1.4 x10^3/uL (1.0-4.8) Monocytes # (Auto) 0.7 x10^3/uL (0.0-1.1) Eosinophils # (Auto) 0.2 x10^3/uL (0.0-0.7) Basophils # (Auto) 0.0 x10^3/uL (0.0-0.2) Prothrombin Time 12.3 SEC (11.7-14.0) Prothromb Time International Ratio 1.0 (0.8-1.1) Activated Partial Thromboplast Time 32 SEC (24-38) Sodium Level 133 mmol/L (136-145) Potassium Level 4.0 mmol/L (3.5-5.1) Chloride Level 98 mmol/L (98-107) Carbon Dioxide Level 26 mmol/L (21-32) Anion Gap 9 (6-14) Blood Urea Nitrogen 24 mg/dL (8-26) Creatinine 1.5 mg/dL (0.7-1.3) Estimated GFR (Cockcroft-Gault) 60.4 BUN/Creatinine Ratio 16 (6-20) Glucose Level 425 mg/dL (70-99) Calcium Level 9.7 mg/dL (8.5-10.1) Magnesium Level 1.3 mg/dL (1.8-2.4) Total Bilirubin 0.3 mg/dL (0.2-1.0) Aspartate Amino Transf (AST/SGOT) 18 U/L (15-37) Alanine Aminotransferase (ALT/SGPT) 20 U/L (16-63) Alkaline Phosphatase 78 U/L (46-116) Troponin I Quantitative < 0.017 ng/mL (0.000-0.055) ML-Ulu-R-Type Natriuretic Peptide 44 pg/mL (0-124) Total Protein 8.0 g/dL (6.4-8.2) Albumin 3.6 g/dL (3.4-5.0) Albumin/Globulin Ratio 0.8 (1.0-1.7) Laboratory Tests Test 05/15/17 15:01 05/15/17 15:05 05/15/17 17:06 Glucose (Fingerstick) 463 mg/dL (70-99) 363 mg/dL (70-99) White Blood Count 5.1 x10^3/uL (4.0-11.0) Red Blood Count 4.84 x10^6/uL (4.30-5.70) Hemoglobin 12.3 g/dL (13.0-17.5) Hematocrit 38.3 % (39.0-53.0) Mean Corpuscular Volume 79 fL (79-100) Mean Corpuscular Hemoglobin 25 pg (25-35) Mean Corpuscular Hemoglobin Concent 32 g/dL (31-37) Red Cell Distribution Width 13.4 % (11.5-14.5) Platelet Count 188 x10^3/uL (140-400) Neutrophils (%) (Auto) 55 % (31-73) Lymphocytes (%) (Auto) 27 % (24-48) Monocytes (%) (Auto) 14 % (0-9) Eosinophils (%) (Auto) 4 % (0-3) Basophils (%) (Auto) 1 % (0-3) Neutrophils # (Auto) 2.8 x10^3uL (1.8-7.7) Lymphocytes # (Auto) 1.4 x10^3/uL (1.0-4.8) Monocytes # (Auto) 0.7 x10^3/uL (0.0-1.1) Eosinophils # (Auto) 0.2 x10^3/uL (0.0-0.7) Basophils # (Auto) 0.0 x10^3/uL (0.0-0.2) Prothrombin Time 12.3 SEC (11.7-14.0) Prothromb Time International Ratio 1.0 (0.8-1.1) Activated Partial Thromboplast Time 32 SEC (24-38) Sodium Level 133 mmol/L (136-145) Potassium Level 4.0 mmol/L (3.5-5.1) Chloride Level 98 mmol/L (98-107) Carbon Dioxide Level 26 mmol/L (21-32) Anion Gap 9 (6-14) Blood Urea Nitrogen 24 mg/dL (8-26) Creatinine 1.5 mg/dL (0.7-1.3) Estimated GFR (Cockcroft-Gault) 60.4 BUN/Creatinine Ratio 16 (6-20) Glucose Level 425 mg/dL (70-99) Calcium Level 9.7 mg/dL (8.5-10.1) Magnesium Level 1.3 mg/dL (1.8-2.4) Total Bilirubin 0.3 mg/dL (0.2-1.0) Aspartate Amino Transf (AST/SGOT) 18 U/L (15-37) Alanine Aminotransferase (ALT/SGPT) 20 U/L (16-63) Alkaline Phosphatase 78 U/L (46-116) Troponin I Quantitative < 0.017 ng/mL (0.000-0.055) NW-Jct-O-Type Natriuretic Peptide 44 pg/mL (0-124) Total Protein 8.0 g/dL (6.4-8.2) Albumin 3.6 g/dL (3.4-5.0) Albumin/Globulin Ratio 0.8 (1.0-1.7) VTE Prophylaxis Ordered VTE Prophylaxis Devices: No VTE Pharmacological Prophylaxi: Yes Assessment/Plan Assessment/Plan chest pain, angina, r/o ACS Dm2, hyperglycemia, he reprots last A1c as 8.9 CKD3, prior renal transplant 2011, cont home meds, consult renal cont cellcept obesity BMI 38 MARIA DE JESUS SONG MD May 15, 2017 17:21
[2017-05-15 17:49] LABS: BILIRUBIN,URINE NEGATIVE (NEG); GLUCOSE,URINE >=1000 mg/dL (NEG); NITRITE,URINE NEGATIVE (NEG); PROTEIN,URINE NEGATIVE (NEG-TRACE); UROBILINOGEN,URINE 0.2 mg/dL (0.2 mg/dL)
[2017-05-15 18:12] LABS: BACTERIA,URINE 0 /HPF (0-FEW); RBC,URINE OCC /HPF (0-2); WBC,URINE 0 /HPF (0-4)
[2017-05-15 18:17] VITALS: BP 140/85
[2017-05-15 19:32] VITALS: BP 115/69
[2017-05-15] MEDS ORDERED: INSULIN ASPART 300 UNITS/3 ML INSULN.PEN SQ ONE (21:45)
[2017-05-15] MEDS ORDERED: CHOL2000 PO (21:47)
[2017-05-15] MEDS ORDERED: MYCO180T PO (21:47)
[2017-05-15] MEDS ORDERED: INSU100V13 SQ (21:47)
[2017-05-15] MEDS ORDERED: POTA20TA82 PO (21:47)
[2017-05-15] MEDS ORDERED: ASPI-482 PO (21:47)
[2017-05-15] MEDS ORDERED: INSULIN DETEMIR 300 UNITS/3 ML INSULN.PEN. SQ ONE (22:45)
[2017-05-15] MEDS ORDERED: TACROLIMUS 1 MG CAPSULE PO ONE (23:00)
[2017-05-15] MEDS ORDERED: CARVEDILOL 12.5 MG TABLET. PO ONE (23:00)
[2017-05-15 23:30] VITALS: BP 168/86
[2017-05-15] MEDS: INSULIN DETEMIR 300 UNITS/3 ML INSULN.PEN. SQ SCH (23:36)
[2017-05-16 03:54] VITALS: BP 125/75
[2017-05-16 04:54] LABS: BASO % 1 % (0-3); EOS % 6 % (0-3); HEMATOCRIT 36.2 % (39.0-53.0); HEMOGLOBIN 11.8 g/dL (13.0-17.5); LYMPH # 1.4 x10^3/uL (1.0-4.8); LYMPH % 35 % (24-48); MEAN CORPUSCULAR HEMOGLOBIN 26 pg (25-35); MEAN CORPUSCULAR HGB CONC 33 g/dL (31-37); MEAN CORPUSCULAR VOLUME 79 fL (79-100); MONO % 18 % (0-9); NEUT % 40 % (31-73); PLATELET COUNT 173 x10^3/uL (140-400); RED CELL DISTRIBUTION WIDTH 13.2 % (11.5-14.5)
[2017-05-16 05:47] LABS: ALBUMIN 2.9 g/dL (3.4-5.0); ALBUMIN/GLOBULIN RATIO 0.9 (1.0-1.7); CALCIUM 8.9 mg/dL (8.5-10.1); CREATININE 1.2 mg/dL (0.7-1.3); GFR 78.2; POTASSIUM 3.5 mmol/L (3.5-5.1); TOTAL BILIRUBIN 0.2 mg/dL (0.2-1.0); TOTAL PROTEIN 6.3 g/dL (6.4-8.2)
[2017-05-16 06:00] LABS: CHOLESTEROL/HDL RATIO 4.7
[2017-05-16 07:30] VITALS: BP 146/88
[2017-05-16] MEDS: INSULIN ASPART 300 UNITS/3 ML INSULN.PEN SQ SCH ×4 (07:30→21:19)
[2017-05-16] MEDS: CARVEDILOL 12.5 MG TABLET. PO SCH ×2 (08:00→17:24)
[2017-05-16] MEDS: TACROLIMUS 1 MG CAPSULE PO SCH ×2 (08:37→20:13)
[2017-05-16] MEDS: MAGNESIUM OXIDE 400 MG TABLET PO SCH ×3 (08:38→20:13)
[2017-05-16] MEDS: POTASSIUM CHLORIDE 20 MEQ TABLET.ER. PO SCH (08:38)
[2017-05-16] MEDS: GLIMEPIRIDE 2 MG TABLET. PO SCH ×2 (08:38→17:24)
[2017-05-16] MEDS: MYCOPHENOLATE ACID 180 MG TABLET.DR. PO SCH ×4 (08:39→20:12)
[2017-05-16] MEDS: predniSONE 5 MG TABLET PO SCH (08:40)
[2017-05-16] MEDS: PIOGLITAZONE 15 MG TABLET. PO SCH (08:40)
[2017-05-16] MEDS: CHOLECALCIFEROL (VITAMIN D3) 1,000 UNIT TABLET PO SCH (08:40)
[2017-05-16] MEDS: ALLOPURINOL 300 MG TABLET. PO SCH (08:40)
[2017-05-16] MEDS: ASPIRIN ENTERIC COATED 81 MG TABLET.DR. PO SCH (08:40)
[2017-05-16] MEDS: amLODIPine BESYLATE 5 MG TABLET PO SCH (08:41)
[2017-05-16 10:40] VITALS: BP 119/80
[2017-05-16 10:58] LABS: % EOS 6 % (0-5); PLT ESTIMATE ADEQUATE (ADEQUATE)
--- NOTE | 2017-05-16 11:17 | PDOC2 ---
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 HE HAS NOTED SOME AT REST AND ALSO NOTED SOME WITH WALKING ASSOCIATED WITH SOB. HX PERTINENT FOR ESRD FOR WHICH HE WAS ON HD FROM [id number]. HE RECEIVED A CADAVERIC RENAL TX IN 2011 AND IS MAINTAINED ON PROGRAF, MYFORTIC AND PREDNISONE. ON ADMIT CR WAS 1.6 AND NOW IT IS 1.2. ADMIT BG WAS VERY HIGH OVER 400. DOING WELL OVERALL FROM TX STANDPOINT WITH REGULAR OP APPTS EVERY 3 MONTHS. NO FEVERS OR CHILLS OR ANY PAIN OVER TX Past Medical History Cardiovascular: HTN Pulmonary: Other CENTRAL NERVOUS SYSTEM: Other GI: GERD Heme/Onc: No pertinent hx Hepatobiliary: No pertinent hx Psych: No pertinent hx Musculoskeletal: Osteoarthritis Rheumatologic: Gout Infectious disease: Other Renal/: Chronic renal insuff, Chronic renal failure, Other Endocrine: Diabetes Past Surgical History Past Surgical History HX RENAL TX IN 2011 Past Surgical History: Hernia Repair, Other Family History Family History: No Significant Social History No ALCOHOL: none Drugs: None Lives: with Family Current Problem List Problem List Problems Medical Problems: (1) Chest pain Status: Acute (2) Hyperglycemia Status: Acute Current Medications Current Medications Current Medications Sodium Chloride 1,000 ml @ 1,000 mls/hr 1X ONCE IV Last administered on 15:40; Start 05/15/17 at 15:15; Stop 05/15/17 at 16:14; Status DC Aspirin (Don Aspirin) 325 mg 1X ONCE PO Last administered on 05/15/17 15:39 ; Start 05/15/17 at 15:15; Stop 05/15/17 at 15:16; Status DC Insulin Aspart (NovoLOG) 0-7 UNITS TIDWMEALS SQ Last administered on 05/15/17 17:00; Start 05/15/17 at 17:00; Stop 05/15/17 at 21:38; Status DC Dextrose (Dextrose 50%-Water Syringe) 12.5 gm PRN Q15MIN PRN IV SEE COMMENTS; Start 05/15/17 at 16:45 Magnesium Oxide (Magnesium Oxide) 400 mg BID PO Last administered on 05/15/17 21:31; Start 05/15/17 at 17:00; Stop 05/16/17 at 21:01 Insulin Aspart (NovoLOG) 0-7 UNITS QIDACHS SQ ; Start 05/16/17 at 07:30 Insulin Aspart (NovoLOG) 12 units 1X ONCE SQ Last administered on 05/15/17 22 :27; Start 05/15/17 at 21:45; Stop 05/15/17 at 21:46; Status DC Allopurinol (Zyloprim) 300 mg DAILY PO Last administered on 05/16/17 08:40; Start 05/16/17 at 09:00 Amlodipine Besylate (Norvasc) 10 mg DAILY PO Last administered on 05/16/17 08 :41; Start 05/16/17 at 09:00 Aspirin (Ecotrin) 81 mg DAILY PO Last administered on 05/16/17 08:40; Start 05/16/17 at 09:00 Mycophenolate Sodium (Myfortic) 180 mg BID PO Last administered on 05/16/17 08:39; Start 05/16/17 at 09:00 Mycophenolate Sodium (Myfortic) 360 mg BID PO Last administered on 05/16/17 08:39; Start 05/16/17 at 09:00 Pioglitazone HCl (Actos) 45 mg DAILY PO Last administered on 05/16/17 08:40; Start 05/16/17 at 09:00 Prednisone (Prednisone) 5 mg DAILY PO Last administered on 05/16/17 08:40; Start 05/16/17 at 09:00 Tacrolimus (Prograf) 3 mg BID PO Last administered on 05/16/17 08:37; Start 05/16/17 at 09:00 Carvedilol (Coreg) 25 mg BIDWMEALS PO ; Start 05/16/17 at 08:00 Vitamin D (Vitamin D3) 2,000 unit DAILY PO Last administered on 05/16/17 08: 40; Start 05/16/17 at 09:00 Glimepiride (Amaryl) 4 mg BIDBFRMEAL PO Last administered on 05/16/17 08:38; Start 05/16/17 at 07:30 Hydralazine HCl (Apresoline) 100 mg BID PO Last administered on 05/16/17 08: 38; Start 05/16/17 at 09:00 Insulin Detemir (Levemir) 10 units HS SQ Last administered on 05/15/17 23:36; Start 05/15/17 at 23:00 Magnesium Oxide (Magnesium Oxide) 800 mg DAILY PO Last administered on 08:38; Start 05/16/17 at 09:00 Potassium Chloride (Klor-Con) 20 meq DAILY PO Last administered on 05/16/17 08:38; Start 05/16/17 at 09:00 Atorvastatin Calcium (Lipitor) 5 mg HS PO ; Start 05/16/17 at 21:00 Tacrolimus (Prograf) 3 mg 1X ONCE PO Last administered on 05/15/17 23:30; Start 05/15/17 at 23:00; Stop 05/15/17 at 23:01; Status DC Carvedilol (Coreg) 25 mg 1X ONCE PO Last administered on 05/15/17 23:31; Start 05/15/17 at 23:00; Stop 05/15/17 at 23:01; Status DC Insulin Detemir (Levemir) 10 units 1X ONCE SQ ; Start 05/15/17 at 22:45; Stop 05/15/17 at 22:46; Status UNV Active Scripts Active Actos (Pioglitazone Hcl) 15 Mg Tablet 45 Mg PO DAILY Reported Vitamin D (Cholecalciferol (Vitamin D3)) 2,000 Unit Capsule 1 Cap PO DAILY Potassium Chloride 20 Meq Tablet.er 20 Meq PO DAILY Aspir 81 (Aspirin) 81 Mg Tablet. 1 Tab PO DAILY Myfortic (Mycophenolate Sodium) 180 Mg Tablet. 180 Mg PO BID Levemir (Insulin Detemir) 100 Unit/1 Ml Vial 10 Unit SQ HS Pravastatin Sodium 20 Mg Tablet 20 Mg PO HS Magnesium (Magnesium Oxide) 400 Mg Capsule 2 Cap PO DAILY Prednisone 5 Mg Tablet 5 Mg PO DAILY Glimepiride 4 Mg Tablet 4 Mg PO BID Allopurinol 300 Mg Tablet 300 Mg PO DAILY Amlodipine Besylate 5 Mg Tablet 10 Mg PO DAILY Hydralazine Hcl 100 Mg Tablet 100 Mg PO BID Carvedilol 25 Mg Tablet 1 Tab PO BID Myfortic (Mycophenolate Sodium) 360 Mg Tablet. 360 Mg PO BID Prograf (Tacrolimus) 1 Mg Capsule 3 Cap PO BID Allergies Allergies: Coded Allergies: clonidine (Verified Allergy, Intermediate, 10/31/16) " I don't feel right" ROS General: YES: Fatigue, Malaise PSYCHOLOGICAL ROS: YES: Anxiety Eyes: Yes Decreased vision HEENT: YES: Heacaches Respiratory: YES: Cough, Shortness of breath, SOB with excertion Cardiovascular: yes Chest Pain, yes Orthopnea Gastrointestinal: Yes Constipation Genitourinary: YES Other (NOCTURIA) Musculoskeletal: Yes Muscular Weakness Neurological: Yes Weakness Skin: Yes Dry Skin Physical Exam Physical Exam NO PAIN OVER RLQ [place] SITE General: Alert, Oriented X3, Cooperative, No acute distress HEENT: Atraumatic, PERRLA, EOMI, Mucous membr. moist/pink Lungs: Clear to auscultation, Normal air movement Heart: Regular rate, Normal S1 Abdomen: Normal bowel sounds, Soft, No tenderness Extremities: No clubbing, No cyanosis Skin: No rashes Neuro: Normal speech, Cranial nerves 3-12 NL Psych/Mental Status: Mental status NL, Mood NL MUSCULOSKELETAL: No joint tenderness, No deformity, No swelling Vitals VITALS Vital Signs Date Time Temp Pulse Resp B/P (MAP) Pulse Ox O2 Delivery O2 Flow Rate FiO2 05/16/17 10:40 97.8 75 20 119/80 (93) 94 Room Air 97.8 Labs Labs Laboratory Tests Test 05/15/17 15:01 05/15/17 15:05 05/15/17 17:06 05/15/17 17:40 Glucose (Fingerstick) 463 mg/dL (70-99) 363 mg/dL (70-99) White Blood Count 5.1 x10^3/uL (4.0-11.0) Red Blood Count 4.84 x10^6/uL (4.30-5.70) Hemoglobin 12.3 g/dL (13.0-17.5) Hematocrit 38.3 % (39.0-53.0) Mean Corpuscular Volume 79 fL (79-100) Mean Corpuscular Hemoglobin 25 pg (25-35) Mean Corpuscular Hemoglobin Concent 32 g/dL (31-37) Red Cell Distribution Width 13.4 % (11.5-14.5) Platelet Count 188 x10^3/uL (140-400) Neutrophils (%) (Auto) 55 % (31-73) Lymphocytes (%) (Auto) 27 % (24-48) Monocytes (%) (Auto) 14 % (0-9) Eosinophils (%) (Auto) 4 % (0-3) Basophils (%) (Auto) 1 % (0-3) Neutrophils # (Auto) 2.8 x10^3uL (1.8-7.7) Lymphocytes # (Auto) 1.4 x10^3/uL (1.0-4.8) Monocytes # (Auto) 0.7 x10^3/uL (0.0-1.1) Eosinophils # (Auto) 0.2 x10^3/uL (0.0-0.7) Basophils # (Auto) 0.0 x10^3/uL (0.0-0.2) Prothrombin Time 12.3 SEC (11.7-14.0) Prothromb Time International Ratio 1.0 (0.8-1.1) Activated Partial Thromboplast Time 32 SEC (24-38) Sodium Level 133 mmol/L (136-145) Potassium Level 4.0 mmol/L (3.5-5.1) Chloride Level 98 mmol/L (98-107) Carbon Dioxide Level 26 mmol/L (21-32) Anion Gap 9 (6-14) Blood Urea Nitrogen 24 mg/dL (8-26) Creatinine 1.5 mg/dL (0.7-1.3) Estimated GFR (Cockcroft-Gault) 60.4 BUN/Creatinine Ratio 16 (6-20) Glucose Level 425 mg/dL (70-99) Calcium Level 9.7 mg/dL (8.5-10.1) Magnesium Level 1.3 mg/dL (1.8-2.4) Total Bilirubin 0.3 mg/dL (0.2-1.0) Aspartate Amino Transf (AST/SGOT) 18 U/L (15-37) Alanine Aminotransferase (ALT/SGPT) 20 U/L (16-63) Alkaline Phosphatase 78 U/L (46-116) Troponin I Quantitative < 0.017 ng/mL (0.000-0.055) FL-Yaz-V-Type Natriuretic Peptide 44 pg/mL (0-124) Total Protein 8.0 g/dL (6.4-8.2) Albumin 3.6 g/dL (3.4-5.0) Albumin/Globulin Ratio 0.8 (1.0-1.7) Urine Collection Type Unknown Urine Color Yellow Urine Clarity Clear Urine pH 6.0 Urine Specific Hughes >=1.030 Urine Protein Negative mg/dL (NEG-TRACE) Urine Glucose (UA) >=1000 mg/dL (NEG) Urine Ketones (Stick) Trace mg/dL (NEG) Urine Blood Negative (NEG) Urine Nitrite Negative (NEG) Urine Bilirubin Negative (NEG) Urine Urobilinogen Dipstick 0.2 mg/dL (0.2 mg/dL) Urine Leukocyte Esterase Negative (NEG) Urine RBC Occ /HPF (0-2) Urine WBC 0 /HPF (0-4) Urine Squamous Epithelial Cells None /LPF Urine Bacteria 0 /HPF (0-FEW) Test 05/15/17 21:20 05/16/17 03:30 05/16/17 03:35 05/16/17 08:05 Glucose (Fingerstick) 371 mg/dL (70-99) 184 mg/dL (70-99) Sodium Level 140 mmol/L (136-145) Potassium Level 3.5 mmol/L (3.5-5.1) Chloride Level 105 mmol/L (98-107) Carbon Dioxide Level 27 mmol/L (21-32) Anion Gap 8 (6-14) Blood Urea Nitrogen 19 mg/dL (8-26) Creatinine 1.2 mg/dL (0.7-1.3) Estimated GFR (Cockcroft-Gault) 78.2 BUN/Creatinine Ratio 16 (6-20) Glucose Level 120 mg/dL (70-99) Calcium Level 8.9 mg/dL (8.5-10.1) Total Bilirubin 0.2 mg/dL (0.2-1.0) Aspartate Amino Transf (AST/SGOT) 11 U/L (15-37) Alanine Aminotransferase (ALT/SGPT) 16 U/L (16-63) Alkaline Phosphatase 49 U/L (46-116) Troponin I Quantitative < 0.017 ng/mL (0.000-0.055) Total Protein 6.3 g/dL (6.4-8.2) Albumin 2.9 g/dL (3.4-5.0) Albumin/Globulin Ratio 0.9 (1.0-1.7) Triglycerides Level 107 mg/dL (0-150) Cholesterol Level 178 mg/dL (0-200) LDL Cholesterol, Calculated 119 mg/dL (0-100) VLDL Cholesterol, Calculated 21 mg/dL (0-40) Non-HDL Cholesterol Calculated 140 mg/dL (0-129) HDL Cholesterol 38 mg/dL (40-60) Cholesterol/HDL Ratio 4.7 White Blood Count 4.0 x10^3/uL (4.0-11.0) Red Blood Count 4.60 x10^6/uL (4.30-5.70) Hemoglobin 11.8 g/dL (13.0-17.5) Hematocrit 36.2 % (39.0-53.0) Mean Corpuscular Volume 79 fL (79-100) Mean Corpuscular Hemoglobin 26 pg (25-35) Mean Corpuscular Hemoglobin Concent 33 g/dL (31-37) Red Cell Distribution Width 13.2 % (11.5-14.5) Platelet Count 173 x10^3/uL (140-400) Neutrophils (%) (Auto) 40 % (31-73) Lymphocytes (%) (Auto) 35 % (24-48) Monocytes (%) (Auto) 18 % (0-9) Eosinophils (%) (Auto) 6 % (0-3) Basophils (%) (Auto) 1 % (0-3) Neutrophils # (Auto) 1.6 x10^3uL (1.8-7.7) Lymphocytes # (Auto) 1.4 x10^3/uL (1.0-4.8) Monocytes # (Auto) 0.7 x10^3/uL (0.0-1.1) Eosinophils # (Auto) 0.2 x10^3/uL (0.0-0.7) Basophils # (Auto) 0.0 x10^3/uL (0.0-0.2) Segmented Neutrophils % 46 % (35-66) Band Neutrophils % 1 % (0-9) Lymphocytes % 30 % (24-48) Atypical Lymphocytes % (Manual) 1 % (0-0) Monocytes % 16 % (0-10) Eosinophils % 6 % (0-5) Platelet Estimate Adequate (ADEQUATE) Laboratory Tests Test 05/15/17 15:01 05/15/17 15:05 05/15/17 17:06 05/15/17 17:40 Glucose (Fingerstick) 463 mg/dL (70-99) 363 mg/dL (70-99) White Blood Count 5.1 x10^3/uL (4.0-11.0) Red Blood Count 4.84 x10^6/uL (4.30-5.70) Hemoglobin 12.3 g/dL (13.0-17.5) Hematocrit 38.3 % (39.0-53.0) Mean Corpuscular Volume 79 fL (79-100) Mean Corpuscular Hemoglobin 25 pg (25-35) Mean Corpuscular Hemoglobin Concent 32 g/dL (31-37) Red Cell Distribution Width 13.4 % (11.5-14.5) Platelet Count 188 x10^3/uL (140-400) Neutrophils (%) (Auto) 55 % (31-73) Lymphocytes (%) (Auto) 27 % (24-48) Monocytes (%) (Auto) 14 % (0-9) Eosinophils (%) (Auto) 4 % (0-3) Basophils (%) (Auto) 1 % (0-3) Neutrophils # (Auto) 2.8 x10^3uL (1.8-7.7) Lymphocytes # (Auto) 1.4 x10^3/uL (1.0-4.8) Monocytes # (Auto) 0.7 x10^3/uL (0.0-1.1) Eosinophils # (Auto) 0.2 x10^3/uL (0.0-0.7) Basophils # (Auto) 0.0 x10^3/uL (0.0-0.2) Prothrombin Time 12.3 SEC (11.7-14.0) Prothromb Time International Ratio 1.0 (0.8-1.1) Activated Partial Thromboplast Time 32 SEC (24-38) Sodium Level 133 mmol/L (136-145) Potassium Level 4.0 mmol/L (3.5-5.1) Chloride Level 98 mmol/L (98-107) Carbon Dioxide Level 26 mmol/L (21-32) Anion Gap 9 (6-14) Blood Urea Nitrogen 24 mg/dL (8-26) Creatinine 1.5 mg/dL (0.7-1.3) Estimated GFR (Cockcroft-Gault) 60.4 BUN/Creatinine Ratio 16 (6-20) Glucose Level 425 mg/dL (70-99) Calcium Level 9.7 mg/dL (8.5-10.1) Magnesium Level 1.3 mg/dL (1.8-2.4) Total Bilirubin 0.3 mg/dL (0.2-1.0) Aspartate Amino Transf (AST/SGOT) 18 U/L (15-37) Alanine Aminotransferase (ALT/SGPT) 20 U/L (16-63) Alkaline Phosphatase 78 U/L (46-116) Troponin I Quantitative < 0.017 ng/mL (0.000-0.055) LP-Vbr-W-Type Natriuretic Peptide 44 pg/mL (0-124) Total Protein 8.0 g/dL (6.4-8.2) Albumin 3.6 g/dL (3.4-5.0) Albumin/Globulin Ratio 0.8 (1.0-1.7) Urine Collection Type Unknown Urine Color Yellow Urine Clarity Clear Urine pH 6.0 Urine Specific Hughes >=1.030 Urine Protein Negative mg/dL (NEG-TRACE) Urine Glucose (UA) >=1000 mg/dL (NEG) Urine Ketones (Stick) Trace mg/dL (NEG) Urine Blood Negative (NEG) Urine Nitrite Negative (NEG) Urine Bilirubin Negative (NEG) Urine Urobilinogen Dipstick 0.2 mg/dL (0.2 mg/dL) Urine Leukocyte Esterase Negative (NEG) Urine RBC Occ /HPF (0-2) Urine WBC 0 /HPF (0-4) Urine Squamous Epithelial Cells None /LPF Urine Bacteria 0 /HPF (0-FEW) Test 05/15/17 21:20 05/16/17 03:30 05/16/17 03:35 05/16/17 08:05 Glucose (Fingerstick) 371 mg/dL (70-99) 184 mg/dL (70-99) Sodium Level 140 mmol/L (136-145) Potassium Level 3.5 mmol/L (3.5-5.1) Chloride Level 105 mmol/L (98-107) Carbon Dioxide Level 27 mmol/L (21-32) Anion Gap 8 (6-14) Blood Urea Nitrogen 19 mg/dL (8-26) Creatinine 1.2 mg/dL (0.7-1.3) Estimated GFR (Cockcroft-Gault) 78.2 BUN/Creatinine Ratio 16 (6-20) Glucose Level 120 mg/dL (70-99) Calcium Level 8.9 mg/dL (8.5-10.1) Total Bilirubin 0.2 mg/dL (0.2-1.0) Aspartate Amino Transf (AST/SGOT) 11 U/L (15-37) Alanine Aminotransferase (ALT/SGPT) 16 U/L (16-63) Alkaline Phosphatase 49 U/L (46-116) Troponin I Quantitative < 0.017 ng/mL (0.000-0.055) Total Protein 6.3 g/dL (6.4-8.2) Albumin 2.9 g/dL (3.4-5.0) Albumin/Globulin Ratio 0.9 (1.0-1.7) Triglycerides Level 107 mg/dL (0-150) Cholesterol Level 178 mg/dL (0-200) LDL Cholesterol, Calculated 119 mg/dL (0-100) VLDL Cholesterol, Calculated 21 mg/dL (0-40) Non-HDL Cholesterol Calculated 140 mg/dL (0-129) HDL Cholesterol 38 mg/dL (40-60) Cholesterol/HDL Ratio 4.7 White Blood Count 4.0 x10^3/uL (4.0-11.0) Red Blood Count 4.60 x10^6/uL (4.30-5.70) Hemoglobin 11.8 g/dL (13.0-17.5) Hematocrit 36.2 % (39.0-53.0) Mean Corpuscular Volume 79 fL (79-100) Mean Corpuscular Hemoglobin 26 pg (25-35) Mean Corpuscular Hemoglobin Concent 33 g/dL (31-37) Red Cell Distribution Width 13.2 % (11.5-14.5) Platelet Count 173 x10^3/uL (140-400) Neutrophils (%) (Auto) 40 % (31-73) Lymphocytes (%) (Auto) 35 % (24-48) Monocytes (%) (Auto) 18 % (0-9) Eosinophils (%) (Auto) 6 % (0-3) Basophils (%) (Auto) 1 % (0-3) Neutrophils # (Auto) 1.6 x10^3uL (1.8-7.7) Lymphocytes # (Auto) 1.4 x10^3/uL (1.0-4.8) Monocytes # (Auto) 0.7 x10^3/uL (0.0-1.1) Eosinophils # (Auto) 0.2 x10^3/uL (0.0-0.7) Basophils # (Auto) 0.0 x10^3/uL (0.0-0.2) Segmented Neutrophils % 46 % (35-66) Band Neutrophils % 1 % (0-9) Lymphocytes % 30 % (24-48) Atypical Lymphocytes % (Manual) 1 % (0-0) Monocytes % 16 % (0-10) Eosinophils % 6 % (0-5) Platelet Estimate Adequate (ADEQUATE) Assessment/Plan Assessment/Plan IMP CHEST PAIN WITH MOSQUERA-HIGH RISK FACTORS DM II-POORLY CONTROLLED HX OF ESRD AND ON HD FROM 2006 TO 2011 S/P CADAVERIC RENAL TX IN 2011-BASELINE CR OF 1.2 MILD ADELE WITH CR UP TO 1.6-PROB DUE TO HIGH BG MILD DEHYDRATION CHRONIC IMMUNOSUPPRESSION OBESITY PLAN IVF'S CARDIOLOGY EVAL CONT PROGRAF CONT WITH CELLCEPT CONT PREDNISON LABS IN AM BERTIN GU MD May 16, 2017 11:17
[2017-05-16] MEDS: IV NORMAL SALINE 1000ML BAG 1,000 ML IV SCH (11:52)
--- NOTE | 2017-05-16 11:57 | PDOC2 ---
CARDIAC CONSULT DATE OF CONSULT Date of Consult DATE: 05/16/17 TIME: 11:54 REASON FOR CONSULT Reason for Consult: Chest pain REFERRING PHYSICIAN Referring Physician: Leeanne SOURCE Source: Chart review, Patient HISTORY OF PRESENT ILLNESS HISTORY OF PRESENT ILLNESS This is a pleasant 46 yo male admitted for complains of chest pain and SOA. These are definitely associated with exertion. Reports no nausea, diaphoresis, palpitations. This has been going on for the last 4 weeks. He has been compliant with his medications. Presently no CP. His symptoms gets better with rest. He is positive for AI and denies any issued with orthopnea but positive for PND given that his CPAP is broken again, tubing campbell. PAST MEDICAL HISTORY Past Medical History Cardiovascular: HTN Pulmonary: Other (ALYSIA) CENTRAL NERVOUS SYSTEM: Other (No pertinent history) GI: GERD Heme/Onc: No pertinent hx Hepatobiliary: No pertinent hx Psych: No pertinent hx Musculoskeletal: Osteoarthritis Rheumatologic: Gout Infectious disease: Other (flu 2 weeks ago) ENT: No pertinent hx Renal/: Chronic renal insuff, Chronic renal failure (ESRD last dialysis in 2011 ), Other (renal transplant recipient) Endocrine: Diabetes (2) Dermatology: No pertinent hx PAST SURGICAL HISTORY Past Surgical History Hernia Repair (inguinal), Other (renal transplant 02/2012; Left arm dialysis fistula) FAMILY HISTORY Family History noncontributory SOCIAL HISTORY Smoke: No ALCOHOL: none Drugs: None Lives: with Family CURRENT MEDICATIONS CURRENT MEDICATIONS Current Medications Medications (Trade) Dose Ordered Sig/Bertram Route PRN Reason Start Time Stop Time Status Last Admin Dose Admin Sodium Chloride 1,000 ml @ 1,000 mls/hr 1X ONCE IV 05/15/17 15:15 05/15/17 16:14 DC 05/15/17 15:40 Aspirin (Don Aspirin) 325 mg 1X ONCE PO 05/15/17 15:15 05/15/17 15:16 DC 05/15/17 15:39 Insulin Aspart (NovoLOG) 0-7 UNITS TIDWMEALS SQ 05/15/17 17:00 05/15/17 21:38 DC 05/15/17 17:00 Magnesium Oxide (Magnesium Oxide) 400 mg BID PO 05/15/17 17:00 05/16/17 21:01 05/15/17 21:31 Insulin Aspart (NovoLOG) 12 units 1X ONCE SQ 05/15/17 21:45 05/15/17 21:46 DC 05/15/17 22:27 Allopurinol (Zyloprim) 300 mg DAILY PO 05/16/17 09:00 05/16/17 08:40 Amlodipine Besylate (Norvasc) 10 mg DAILY PO 05/16/17 09:00 05/16/17 08:41 Aspirin (Ecotrin) 81 mg DAILY PO 05/16/17 09:00 05/16/17 08:40 Mycophenolate Sodium (Myfortic) 180 mg BID PO 05/16/17 09:00 05/16/17 08:39 Mycophenolate Sodium (Myfortic) 360 mg BID PO 05/16/17 09:00 05/16/17 08:39 Pioglitazone HCl (Actos) 45 mg DAILY PO 05/16/17 09:00 05/16/17 08:40 Prednisone (Prednisone) 5 mg DAILY PO 05/16/17 09:00 05/16/17 08:40 Tacrolimus (Prograf) 3 mg BID PO 05/16/17 09:00 05/16/17 08:37 Vitamin D (Vitamin D3) 2,000 unit DAILY PO 05/16/17 09:00 05/16/17 08:40 Glimepiride (Amaryl) 4 mg BIDBFRMEAL PO 05/16/17 07:30 05/16/17 08:38 Hydralazine HCl (Apresoline) 100 mg BID PO 05/16/17 09:00 05/16/17 08:38 Insulin Detemir (Levemir) 10 units HS SQ 05/15/17 23:00 05/15/17 23:36 Magnesium Oxide (Magnesium Oxide) 800 mg DAILY PO 05/16/17 09:00 05/16/17 08:38 Potassium Chloride (Klor-Con) 20 meq DAILY PO 05/16/17 09:00 05/16/17 08:38 Tacrolimus (Prograf) 3 mg 1X ONCE PO 05/15/17 23:00 05/15/17 23:01 DC 05/15/17 23:30 Carvedilol (Coreg) 25 mg 1X ONCE PO 05/15/17 23:00 05/15/17 23:01 DC 05/15/17 23:31 Sodium Chloride 1,000 ml @ 75 mls/hr [id number] IV 05/16/17 11:30 05/16/17 11:52 ALLERGIES ALLERGIES: Coded Allergies: clonidine (Verified Allergy, Intermediate, 10/31/16) " I don't feel right" ROS Review of System 14 point ROS evaluated with pertinent positives noted per HPI PHYSICAL EXAM General: Alert, Oriented X3, Cooperative, No acute distress HEENT: Atraumatic, Mucous membr. moist/pink Lungs: Clear to auscultation, Normal air movement Heart: Regular rate (SR), Normal S1, Normal S2, Other (3/6 daistolic murmur to MAEGAN border) Abdomen: Soft, No tenderness, Other (truncal obesity) Extremities: No cyanosis, Other (1+ bilateral LE pitting edema) Skin: No breakdown, No significant lesion Neuro: Normal speech, Sensation intact Psych/Mental Status: Mental status NL, Mood NL MUSCULOSKELETAL: Osteoarthritic changes both hands VITALS VITALS Vital Signs Date Time Temp Pulse Resp B/P (MAP) Pulse Ox O2 Delivery O2 Flow Rate FiO2 05/16/17 10:40 97.8 75 20 119/80 (93) 94 Room Air 97.8 LABS Lab: Laboratory Tests Test 05/15/17 15:01 05/15/17 15:05 05/15/17 17:06 05/15/17 17:40 Glucose (Fingerstick) 463 mg/dL (70-99) 363 mg/dL (70-99) White Blood Count 5.1 x10^3/uL (4.0-11.0) Red Blood Count 4.84 x10^6/uL (4.30-5.70) Hemoglobin 12.3 g/dL (13.0-17.5) Hematocrit 38.3 % (39.0-53.0) Mean Corpuscular Volume 79 fL (79-100) Mean Corpuscular Hemoglobin 25 pg (25-35) Mean Corpuscular Hemoglobin Concent 32 g/dL (31-37) Red Cell Distribution Width 13.4 % (11.5-14.5) Platelet Count 188 x10^3/uL (140-400) Neutrophils (%) (Auto) 55 % (31-73) Lymphocytes (%) (Auto) 27 % (24-48) Monocytes (%) (Auto) 14 % (0-9) Eosinophils (%) (Auto) 4 % (0-3) Basophils (%) (Auto) 1 % (0-3) Neutrophils # (Auto) 2.8 x10^3uL (1.8-7.7) Lymphocytes # (Auto) 1.4 x10^3/uL (1.0-4.8) Monocytes # (Auto) 0.7 x10^3/uL (0.0-1.1) Eosinophils # (Auto) 0.2 x10^3/uL (0.0-0.7) Basophils # (Auto) 0.0 x10^3/uL (0.0-0.2) Prothrombin Time 12.3 SEC (11.7-14.0) Prothromb Time International Ratio 1.0 (0.8-1.1) Activated Partial Thromboplast Time 32 SEC (24-38) Sodium Level 133 mmol/L (136-145) Potassium Level 4.0 mmol/L (3.5-5.1) Chloride Level 98 mmol/L (98-107) Carbon Dioxide Level 26 mmol/L (21-32) Anion Gap 9 (6-14) Blood Urea Nitrogen 24 mg/dL (8-26) Creatinine 1.5 mg/dL (0.7-1.3) Estimated GFR (Cockcroft-Gault) 60.4 BUN/Creatinine Ratio 16 (6-20) Glucose Level 425 mg/dL (70-99) Calcium Level 9.7 mg/dL (8.5-10.1) Magnesium Level 1.3 mg/dL (1.8-2.4) Total Bilirubin 0.3 mg/dL (0.2-1.0) Aspartate Amino Transf (AST/SGOT) 18 U/L (15-37) Alanine Aminotransferase (ALT/SGPT) 20 U/L (16-63) Alkaline Phosphatase 78 U/L (46-116) Troponin I Quantitative < 0.017 ng/mL (0.000-0.055) DN-Dsp-E-Type Natriuretic Peptide 44 pg/mL (0-124) Total Protein 8.0 g/dL (6.4-8.2) Albumin 3.6 g/dL (3.4-5.0) Albumin/Globulin Ratio 0.8 (1.0-1.7) Urine Collection Type Unknown Urine Color Yellow Urine Clarity Clear Urine pH 6.0 Urine Specific [place] >=1.030 Urine Protein Negative mg/dL (NEG-TRACE) Urine Glucose (UA) >=1000 mg/dL (NEG) Urine Ketones (Stick) Trace mg/dL (NEG) Urine Blood Negative (NEG) Urine Nitrite Negative (NEG) Urine Bilirubin Negative (NEG) Urine Urobilinogen Dipstick 0.2 mg/dL (0.2 mg/dL) Urine Leukocyte Esterase Negative (NEG) Urine RBC Occ /HPF (0-2) Urine WBC 0 /HPF (0-4) Urine Squamous Epithelial Cells None /LPF Urine Bacteria 0 /HPF (0-FEW) Test 05/15/17 21:20 05/16/17 03:30 05/16/17 03:35 05/16/17 08:05 Glucose (Fingerstick) 371 mg/dL (70-99) 184 mg/dL (70-99) Sodium Level 140 mmol/L (136-145) Potassium Level 3.5 mmol/L (3.5-5.1) Chloride Level 105 mmol/L (98-107) Carbon Dioxide Level 27 mmol/L (21-32) Anion Gap 8 (6-14) Blood Urea Nitrogen 19 mg/dL (8-26) Creatinine 1.2 mg/dL (0.7-1.3) Estimated GFR (Cockcroft-Gault) 78.2 BUN/Creatinine Ratio 16 (6-20) Glucose Level 120 mg/dL (70-99) Calcium Level 8.9 mg/dL (8.5-10.1) Total Bilirubin 0.2 mg/dL (0.2-1.0) Aspartate Amino Transf (AST/SGOT) 11 U/L (15-37) Alanine Aminotransferase (ALT/SGPT) 16 U/L (16-63) Alkaline Phosphatase 49 U/L (46-116) Troponin I Quantitative < 0.017 ng/mL (0.000-0.055) Total Protein 6.3 g/dL (6.4-8.2) Albumin 2.9 g/dL (3.4-5.0) Albumin/Globulin Ratio 0.9 (1.0-1.7) Triglycerides Level 107 mg/dL (0-150) Cholesterol Level 178 mg/dL (0-200) LDL Cholesterol, Calculated 119 mg/dL (0-100) VLDL Cholesterol, Calculated 21 mg/dL (0-40) Non-HDL Cholesterol Calculated 140 mg/dL (0-129) HDL Cholesterol 38 mg/dL (40-60) Cholesterol/HDL Ratio 4.7 White Blood Count 4.0 x10^3/uL (4.0-11.0) Red Blood Count 4.60 x10^6/uL (4.30-5.70) Hemoglobin 11.8 g/dL (13.0-17.5) Hematocrit 36.2 % (39.0-53.0) Mean Corpuscular Volume 79 fL (79-100) Mean Corpuscular Hemoglobin 26 pg (25-35) Mean Corpuscular Hemoglobin Concent 33 g/dL (31-37) Red Cell Distribution Width 13.2 % (11.5-14.5) Platelet Count 173 x10^3/uL (140-400) Neutrophils (%) (Auto) 40 % (31-73) Lymphocytes (%) (Auto) 35 % (24-48) Monocytes (%) (Auto) 18 % (0-9) Eosinophils (%) (Auto) 6 % (0-3) Basophils (%) (Auto) 1 % (0-3) Neutrophils # (Auto) 1.6 x10^3uL (1.8-7.7) Lymphocytes # (Auto) 1.4 x10^3/uL (1.0-4.8) Monocytes # (Auto) 0.7 x10^3/uL (0.0-1.1) Eosinophils # (Auto) 0.2 x10^3/uL (0.0-0.7) Basophils # (Auto) 0.0 x10^3/uL (0.0-0.2) Segmented Neutrophils % 46 % (35-66) Band Neutrophils % 1 % (0-9) Lymphocytes % 30 % (24-48) Atypical Lymphocytes % (Manual) 1 % (0-0) Monocytes % 16 % (0-10) Eosinophils % 6 % (0-5) Platelet Estimate Adequate (ADEQUATE) Test 05/16/17 11:46 Glucose (Fingerstick) 216 mg/dL (70-99) ASSESSMENT/PLAN ASSESSMENT/PLAN 1. Chest pain: high probability for ischemic disease. Unstable angina features. 2. HTN: controlled 3. HLP 4. Uncontrolled DM2: with steroid use 5. CKD: past ESRD/dialysis resolved with renal transplant, Remains stable, nephrology following 6. Chronic immunosuppressions: with prednisone and prograf and myfortic. 7. ALYSIA: broken CPAP again. 8. Hx of mild AI: will reeval via TTE for progression as this may also induce his symptoms. Recommendations 1. Discussed MPI vs LHC and agreeable to proceed with LHC. Risks and benefits explained and will commence in AM 2. Renal prep for contrast load per nephrology. Discussed with them as well 3. Continue with secondary prevention 4. TTE today. Problems: DALILA WORTHY [employer] May 16, 2017 11:57
[2017-05-16] MEDS ORDERED: REGADENOSON 0.4 MG/5 ML DISP.SYRIN. IV ONE (12:15)
--- NOTE | 2017-05-16 13:57 | PDOC ---
PROGRESS NOTES Chief Complaint Chief Complaint Chest pain, 2/2 unstable angina? HTN HLP Uncontrolled DM2: with steroid use and transplant meds CKD: past ESRD/dialysis resolved with renal transplant, Remains stable Chronic immunosuppressions: with prednisone and prograf and myfortic. ALYSIA: broken CPAP again. ADELE, vasomotor mild malnutrition plan: fu with renal, card cath tmr as per card cont home meds on immunosuppressive meds for kidney transplant on po DM2 meds, add levemir 10u qhs, ssi, check hba1c dvt ppx echo today History of Present Illness History of Present Illness ROS: no fever, chills, sob or chest pain some chest uncomfortable, no exertional ,no tenderness takes dm2 po meds ,but not levevir with no insurance CEneg Vitals Vitals Vital Signs Date Time Temp Pulse Resp B/P (MAP) Pulse Ox O2 Delivery O2 Flow Rate FiO2 05/16/17 10:40 97.8 75 20 119/80 (93) 94 Room Air 97.8 Physical Exam General: Alert, Oriented X3, Cooperative, No acute distress Heart: Regular rate (SR), Normal S1, Normal S2, Other (3/6 daistolic murmur to MAEGAN border) Lungs: Clear Abdomen: Soft, No tenderness, Other (truncal obesity) Extremities: No cyanosis, Other ( bl leg 1 + edema) Skin: No breakdown, No significant lesion Labs LABS Laboratory Tests Test 05/15/17 15:01 05/15/17 15:05 05/15/17 17:06 05/15/17 17:40 Glucose (Fingerstick) 463 mg/dL (70-99) 363 mg/dL (70-99) White Blood Count 5.1 x10^3/uL (4.0-11.0) Red Blood Count 4.84 x10^6/uL (4.30-5.70) Hemoglobin 12.3 g/dL (13.0-17.5) Hematocrit 38.3 % (39.0-53.0) Mean Corpuscular Volume 79 fL (79-100) Mean Corpuscular Hemoglobin 25 pg (25-35) Mean Corpuscular Hemoglobin Concent 32 g/dL (31-37) Red Cell Distribution Width 13.4 % (11.5-14.5) Platelet Count 188 x10^3/uL (140-400) Neutrophils (%) (Auto) 55 % (31-73) Lymphocytes (%) (Auto) 27 % (24-48) Monocytes (%) (Auto) 14 % (0-9) Eosinophils (%) (Auto) 4 % (0-3) Basophils (%) (Auto) 1 % (0-3) Neutrophils # (Auto) 2.8 x10^3uL (1.8-7.7) Lymphocytes # (Auto) 1.4 x10^3/uL (1.0-4.8) Monocytes # (Auto) 0.7 x10^3/uL (0.0-1.1) Eosinophils # (Auto) 0.2 x10^3/uL (0.0-0.7) Basophils # (Auto) 0.0 x10^3/uL (0.0-0.2) Prothrombin Time 12.3 SEC (11.7-14.0) Prothromb Time International Ratio 1.0 (0.8-1.1) Activated Partial Thromboplast Time 32 SEC (24-38) Sodium Level 133 mmol/L (136-145) Potassium Level 4.0 mmol/L (3.5-5.1) Chloride Level 98 mmol/L (98-107) Carbon Dioxide Level 26 mmol/L (21-32) Anion Gap 9 (6-14) Blood Urea Nitrogen 24 mg/dL (8-26) Creatinine 1.5 mg/dL (0.7-1.3) Estimated GFR (Cockcroft-Gault) 60.4 BUN/Creatinine Ratio 16 (6-20) Glucose Level 425 mg/dL (70-99) Calcium Level 9.7 mg/dL (8.5-10.1) Magnesium Level 1.3 mg/dL (1.8-2.4) Total Bilirubin 0.3 mg/dL (0.2-1.0) Aspartate Amino Transf (AST/SGOT) 18 U/L (15-37) Alanine Aminotransferase (ALT/SGPT) 20 U/L (16-63) Alkaline Phosphatase 78 U/L (46-116) Troponin I Quantitative < 0.017 ng/mL (0.000-0.055) WA-Xwh-I-Type Natriuretic Peptide 44 pg/mL (0-124) Total Protein 8.0 g/dL (6.4-8.2) Albumin 3.6 g/dL (3.4-5.0) Albumin/Globulin Ratio 0.8 (1.0-1.7) Urine Collection Type Unknown Urine Color Yellow Urine Clarity Clear Urine pH 6.0 Urine Specific Batson >=1.030 Urine Protein Negative mg/dL (NEG-TRACE) Urine Glucose (UA) >=1000 mg/dL (NEG) Urine Ketones (Stick) Trace mg/dL (NEG) Urine Blood Negative (NEG) Urine Nitrite Negative (NEG) Urine Bilirubin Negative (NEG) Urine Urobilinogen Dipstick 0.2 mg/dL (0.2 mg/dL) Urine Leukocyte Esterase Negative (NEG) Urine RBC Occ /HPF (0-2) Urine WBC 0 /HPF (0-4) Urine Squamous Epithelial Cells None /LPF Urine Bacteria 0 /HPF (0-FEW) Test 05/15/17 21:20 05/16/17 03:30 05/16/17 03:35 05/16/17 08:05 Glucose (Fingerstick) 371 mg/dL (70-99) 184 mg/dL (70-99) Sodium Level 140 mmol/L (136-145) Potassium Level 3.5 mmol/L (3.5-5.1) Chloride Level 105 mmol/L (98-107) Carbon Dioxide Level 27 mmol/L (21-32) Anion Gap 8 (6-14) Blood Urea Nitrogen 19 mg/dL (8-26) Creatinine 1.2 mg/dL (0.7-1.3) Estimated GFR (Cockcroft-Gault) 78.2 BUN/Creatinine Ratio 16 (6-20) Glucose Level 120 mg/dL (70-99) Calcium Level 8.9 mg/dL (8.5-10.1) Total Bilirubin 0.2 mg/dL (0.2-1.0) Aspartate Amino Transf (AST/SGOT) 11 U/L (15-37) Alanine Aminotransferase (ALT/SGPT) 16 U/L (16-63) Alkaline Phosphatase 49 U/L (46-116) Troponin I Quantitative < 0.017 ng/mL (0.000-0.055) Total Protein 6.3 g/dL (6.4-8.2) Albumin 2.9 g/dL (3.4-5.0) Albumin/Globulin Ratio 0.9 (1.0-1.7) Triglycerides Level 107 mg/dL (0-150) Cholesterol Level 178 mg/dL (0-200) LDL Cholesterol, Calculated 119 mg/dL (0-100) VLDL Cholesterol, Calculated 21 mg/dL (0-40) Non-HDL Cholesterol Calculated 140 mg/dL (0-129) HDL Cholesterol 38 mg/dL (40-60) Cholesterol/HDL Ratio 4.7 White Blood Count 4.0 x10^3/uL (4.0-11.0) Red Blood Count 4.60 x10^6/uL (4.30-5.70) Hemoglobin 11.8 g/dL (13.0-17.5) Hematocrit 36.2 % (39.0-53.0) Mean Corpuscular Volume 79 fL (79-100) Mean Corpuscular Hemoglobin 26 pg (25-35) Mean Corpuscular Hemoglobin Concent 33 g/dL (31-37) Red Cell Distribution Width 13.2 % (11.5-14.5) Platelet Count 173 x10^3/uL (140-400) Neutrophils (%) (Auto) 40 % (31-73) Lymphocytes (%) (Auto) 35 % (24-48) Monocytes (%) (Auto) 18 % (0-9) Eosinophils (%) (Auto) 6 % (0-3) Basophils (%) (Auto) 1 % (0-3) Neutrophils # (Auto) 1.6 x10^3uL (1.8-7.7) Lymphocytes # (Auto) 1.4 x10^3/uL (1.0-4.8) Monocytes # (Auto) 0.7 x10^3/uL (0.0-1.1) Eosinophils # (Auto) 0.2 x10^3/uL (0.0-0.7) Basophils # (Auto) 0.0 x10^3/uL (0.0-0.2) Segmented Neutrophils % 46 % (35-66) Band Neutrophils % 1 % (0-9) Lymphocytes % 30 % (24-48) Atypical Lymphocytes % (Manual) 1 % (0-0) Monocytes % 16 % (0-10) Eosinophils % 6 % (0-5) Platelet Estimate Adequate (ADEQUATE) Test 05/16/17 11:46 Glucose (Fingerstick) 216 mg/dL (70-99) Assessment and Plan Assessmemt and Plan Problems Medical Problems: (1) Chest pain Status: Acute (2) Hyperglycemia Status: Acute Problems: Comment Review of Relevant I have reviewed the following items izabela (where applicable) has been applied. Labs Laboratory Tests Test 05/15/17 15:01 05/15/17 15:05 05/15/17 17:06 05/15/17 17:40 Glucose (Fingerstick) 463 mg/dL (70-99) 363 mg/dL (70-99) White Blood Count 5.1 x10^3/uL (4.0-11.0) Red Blood Count 4.84 x10^6/uL (4.30-5.70) Hemoglobin 12.3 g/dL (13.0-17.5) Hematocrit 38.3 % (39.0-53.0) Mean Corpuscular Volume 79 fL (79-100) Mean Corpuscular Hemoglobin 25 pg (25-35) Mean Corpuscular Hemoglobin Concent 32 g/dL (31-37) Red Cell Distribution Width 13.4 % (11.5-14.5) Platelet Count 188 x10^3/uL (140-400) Neutrophils (%) (Auto) 55 % (31-73) Lymphocytes (%) (Auto) 27 % (24-48) Monocytes (%) (Auto) 14 % (0-9) Eosinophils (%) (Auto) 4 % (0-3) Basophils (%) (Auto) 1 % (0-3) Neutrophils # (Auto) 2.8 x10^3uL (1.8-7.7) Lymphocytes # (Auto) 1.4 x10^3/uL (1.0-4.8) Monocytes # (Auto) 0.7 x10^3/uL (0.0-1.1) Eosinophils # (Auto) 0.2 x10^3/uL (0.0-0.7) Basophils # (Auto) 0.0 x10^3/uL (0.0-0.2) Prothrombin Time 12.3 SEC (11.7-14.0) Prothromb Time International Ratio 1.0 (0.8-1.1) Activated Partial Thromboplast Time 32 SEC (24-38) Sodium Level 133 mmol/L (136-145) Potassium Level 4.0 mmol/L (3.5-5.1) Chloride Level 98 mmol/L (98-107) Carbon Dioxide Level 26 mmol/L (21-32) Anion Gap 9 (6-14) Blood Urea Nitrogen 24 mg/dL (8-26) Creatinine 1.5 mg/dL (0.7-1.3) Estimated GFR (Cockcroft-Gault) 60.4 BUN/Creatinine Ratio 16 (6-20) Glucose Level 425 mg/dL (70-99) Calcium Level 9.7 mg/dL (8.5-10.1) Magnesium Level 1.3 mg/dL (1.8-2.4) Total Bilirubin 0.3 mg/dL (0.2-1.0) Aspartate Amino Transf (AST/SGOT) 18 U/L (15-37) Alanine Aminotransferase (ALT/SGPT) 20 U/L (16-63) Alkaline Phosphatase 78 U/L (46-116) Troponin I Quantitative < 0.017 ng/mL (0.000-0.055) HS-Kyt-B-Type Natriuretic Peptide 44 pg/mL (0-124) Total Protein 8.0 g/dL (6.4-8.2) Albumin 3.6 g/dL (3.4-5.0) Albumin/Globulin Ratio 0.8 (1.0-1.7) Urine Collection Type Unknown Urine Color Yellow Urine Clarity Clear Urine pH 6.0 Urine Specific Batson >=1.030 Urine Protein Negative mg/dL (NEG-TRACE) Urine Glucose (UA) >=1000 mg/dL (NEG) Urine Ketones (Stick) Trace mg/dL (NEG) Urine Blood Negative (NEG) Urine Nitrite Negative (NEG) Urine Bilirubin Negative (NEG) Urine Urobilinogen Dipstick 0.2 mg/dL (0.2 mg/dL) Urine Leukocyte Esterase Negative (NEG) Urine RBC Occ /HPF (0-2) Urine WBC 0 /HPF (0-4) Urine Squamous Epithelial Cells None /LPF Urine Bacteria 0 /HPF (0-FEW) Test 05/15/17 21:20 05/16/17 03:30 05/16/17 03:35 05/16/17 08:05 Glucose (Fingerstick) 371 mg/dL (70-99) 184 mg/dL (70-99) Sodium Level 140 mmol/L (136-145) Potassium Level 3.5 mmol/L (3.5-5.1) Chloride Level 105 mmol/L (98-107) Carbon Dioxide Level 27 mmol/L (21-32) Anion Gap 8 (6-14) Blood Urea Nitrogen 19 mg/dL (8-26) Creatinine 1.2 mg/dL (0.7-1.3) Estimated GFR (Cockcroft-Gault) 78.2 BUN/Creatinine Ratio 16 (6-20) Glucose Level 120 mg/dL (70-99) Calcium Level 8.9 mg/dL (8.5-10.1) Total Bilirubin 0.2 mg/dL (0.2-1.0) Aspartate Amino Transf (AST/SGOT) 11 U/L (15-37) Alanine Aminotransferase (ALT/SGPT) 16 U/L (16-63) Alkaline Phosphatase 49 U/L (46-116) Troponin I Quantitative < 0.017 ng/mL (0.000-0.055) Total Protein 6.3 g/dL (6.4-8.2) Albumin 2.9 g/dL (3.4-5.0) Albumin/Globulin Ratio 0.9 (1.0-1.7) Triglycerides Level 107 mg/dL (0-150) Cholesterol Level 178 mg/dL (0-200) LDL Cholesterol, Calculated 119 mg/dL (0-100) VLDL Cholesterol, Calculated 21 mg/dL (0-40) Non-HDL Cholesterol Calculated 140 mg/dL (0-129) HDL Cholesterol 38 mg/dL (40-60) Cholesterol/HDL Ratio 4.7 White Blood Count 4.0 x10^3/uL (4.0-11.0) Red Blood Count 4.60 x10^6/uL (4.30-5.70) Hemoglobin 11.8 g/dL (13.0-17.5) Hematocrit 36.2 % (39.0-53.0) Mean Corpuscular Volume 79 fL (79-100) Mean Corpuscular Hemoglobin 26 pg (25-35) Mean Corpuscular Hemoglobin Concent 33 g/dL (31-37) Red Cell Distribution Width 13.2 % (11.5-14.5) Platelet Count 173 x10^3/uL (140-400) Neutrophils (%) (Auto) 40 % (31-73) Lymphocytes (%) (Auto) 35 % (24-48) Monocytes (%) (Auto) 18 % (0-9) Eosinophils (%) (Auto) 6 % (0-3) Basophils (%) (Auto) 1 % (0-3) Neutrophils # (Auto) 1.6 x10^3uL (1.8-7.7) Lymphocytes # (Auto) 1.4 x10^3/uL (1.0-4.8) Monocytes # (Auto) 0.7 x10^3/uL (0.0-1.1) Eosinophils # (Auto) 0.2 x10^3/uL (0.0-0.7) Basophils # (Auto) 0.0 x10^3/uL (0.0-0.2) Segmented Neutrophils % 46 % (35-66) Band Neutrophils % 1 % (0-9) Lymphocytes % 30 % (24-48) Atypical Lymphocytes % (Manual) 1 % (0-0) Monocytes % 16 % (0-10) Eosinophils % 6 % (0-5) Platelet Estimate Adequate (ADEQUATE) Test 05/16/17 11:46 Glucose (Fingerstick) 216 mg/dL (70-99) Laboratory Tests Test 05/15/17 15:01 05/15/17 15:05 05/15/17 17:06 05/15/17 17:40 Glucose (Fingerstick) 463 mg/dL (70-99) 363 mg/dL (70-99) White Blood Count 5.1 x10^3/uL (4.0-11.0) Red Blood Count 4.84 x10^6/uL (4.30-5.70) Hemoglobin 12.3 g/dL (13.0-17.5) Hematocrit 38.3 % (39.0-53.0) Mean Corpuscular Volume 79 fL (79-100) Mean Corpuscular Hemoglobin 25 pg (25-35) Mean Corpuscular Hemoglobin Concent 32 g/dL (31-37) Red Cell Distribution Width 13.4 % (11.5-14.5) Platelet Count 188 x10^3/uL (140-400) Neutrophils (%) (Auto) 55 % (31-73) Lymphocytes (%) (Auto) 27 % (24-48) Monocytes (%) (Auto) 14 % (0-9) Eosinophils (%) (Auto) 4 % (0-3) Basophils (%) (Auto) 1 % (0-3) Neutrophils # (Auto) 2.8 x10^3uL (1.8-7.7) Lymphocytes # (Auto) 1.4 x10^3/uL (1.0-4.8) Monocytes # (Auto) 0.7 x10^3/uL (0.0-1.1) Eosinophils # (Auto) 0.2 x10^3/uL (0.0-0.7) Basophils # (Auto) 0.0 x10^3/uL (0.0-0.2) Prothrombin Time 12.3 SEC (11.7-14.0) Prothromb Time International Ratio 1.0 (0.8-1.1) Activated Partial Thromboplast Time 32 SEC (24-38) Sodium Level 133 mmol/L (136-145) Potassium Level 4.0 mmol/L (3.5-5.1) Chloride Level 98 mmol/L (98-107) Carbon Dioxide Level 26 mmol/L (21-32) Anion Gap 9 (6-14) Blood Urea Nitrogen 24 mg/dL (8-26) Creatinine 1.5 mg/dL (0.7-1.3) Estimated GFR (Cockcroft-Gault) 60.4 BUN/Creatinine Ratio 16 (6-20) Glucose Level 425 mg/dL (70-99) Calcium Level 9.7 mg/dL (8.5-10.1) Magnesium Level 1.3 mg/dL (1.8-2.4) Total Bilirubin 0.3 mg/dL (0.2-1.0) Aspartate Amino Transf (AST/SGOT) 18 U/L (15-37) Alanine Aminotransferase (ALT/SGPT) 20 U/L (16-63) Alkaline Phosphatase 78 U/L (46-116) Troponin I Quantitative < 0.017 ng/mL (0.000-0.055) JG-Aki-C-Type Natriuretic Peptide 44 pg/mL (0-124) Total Protein 8.0 g/dL (6.4-8.2) Albumin 3.6 g/dL (3.4-5.0) Albumin/Globulin Ratio 0.8 (1.0-1.7) Urine Collection Type Unknown Urine Color Yellow Urine Clarity Clear Urine pH 6.0 Urine Specific Batson >=1.030 Urine Protein Negative mg/dL (NEG-TRACE) Urine Glucose (UA) >=1000 mg/dL (NEG) Urine Ketones (Stick) Trace mg/dL (NEG) Urine Blood Negative (NEG) Urine Nitrite Negative (NEG) Urine Bilirubin Negative (NEG) Urine Urobilinogen Dipstick 0.2 mg/dL (0.2 mg/dL) Urine Leukocyte Esterase Negative (NEG) Urine RBC Occ /HPF (0-2) Urine WBC 0 /HPF (0-4) Urine Squamous Epithelial Cells None /LPF Urine Bacteria 0 /HPF (0-FEW) Test 05/15/17 21:20 05/16/17 03:30 05/16/17 03:35 05/16/17 08:05 Glucose (Fingerstick) 371 mg/dL (70-99) 184 mg/dL (70-99) Sodium Level 140 mmol/L (136-145) Potassium Level 3.5 mmol/L (3.5-5.1) Chloride Level 105 mmol/L (98-107) Carbon Dioxide Level 27 mmol/L (21-32) Anion Gap 8 (6-14) Blood Urea Nitrogen 19 mg/dL (8-26) Creatinine 1.2 mg/dL (0.7-1.3) Estimated GFR (Cockcroft-Gault) 78.2 BUN/Creatinine Ratio 16 (6-20) Glucose Level 120 mg/dL (70-99) Calcium Level 8.9 mg/dL (8.5-10.1) Total Bilirubin 0.2 mg/dL (0.2-1.0) Aspartate Amino Transf (AST/SGOT) 11 U/L (15-37) Alanine Aminotransferase (ALT/SGPT) 16 U/L (16-63) Alkaline Phosphatase 49 U/L (46-116) Troponin I Quantitative < 0.017 ng/mL (0.000-0.055) Total Protein 6.3 g/dL (6.4-8.2) Albumin 2.9 g/dL (3.4-5.0) Albumin/Globulin Ratio 0.9 (1.0-1.7) Triglycerides Level 107 mg/dL (0-150) Cholesterol Level 178 mg/dL (0-200) LDL Cholesterol, Calculated 119 mg/dL (0-100) VLDL Cholesterol, Calculated 21 mg/dL (0-40) Non-HDL Cholesterol Calculated 140 mg/dL (0-129) HDL Cholesterol 38 mg/dL (40-60) Cholesterol/HDL Ratio 4.7 White Blood Count 4.0 x10^3/uL (4.0-11.0) Red Blood Count 4.60 x10^6/uL (4.30-5.70) Hemoglobin 11.8 g/dL (13.0-17.5) Hematocrit 36.2 % (39.0-53.0) Mean Corpuscular Volume 79 fL (79-100) Mean Corpuscular Hemoglobin 26 pg (25-35) Mean Corpuscular Hemoglobin Concent 33 g/dL (31-37) Red Cell Distribution Width 13.2 % (11.5-14.5) Platelet Count 173 x10^3/uL (140-400) Neutrophils (%) (Auto) 40 % (31-73) Lymphocytes (%) (Auto) 35 % (24-48) Monocytes (%) (Auto) 18 % (0-9) Eosinophils (%) (Auto) 6 % (0-3) Basophils (%) (Auto) 1 % (0-3) Neutrophils # (Auto) 1.6 x10^3uL (1.8-7.7) Lymphocytes # (Auto) 1.4 x10^3/uL (1.0-4.8) Monocytes # (Auto) 0.7 x10^3/uL (0.0-1.1) Eosinophils # (Auto) 0.2 x10^3/uL (0.0-0.7) Basophils # (Auto) 0.0 x10^3/uL (0.0-0.2) Segmented Neutrophils % 46 % (35-66) Band Neutrophils % 1 % (0-9) Lymphocytes % 30 % (24-48) Atypical Lymphocytes % (Manual) 1 % (0-0) Monocytes % 16 % (0-10) Eosinophils % 6 % (0-5) Platelet Estimate Adequate (ADEQUATE) Test 05/16/17 11:46 Glucose (Fingerstick) 216 mg/dL (70-99) Medications Current Medications Sodium Chloride 1,000 ml @ 1,000 mls/hr 1X ONCE IV Last administered on 15:40; Start 05/15/17 at 15:15; Stop 05/15/17 at 16:14; Status DC Aspirin (Don Aspirin) 325 mg 1X ONCE PO Last administered on 05/15/17 15:39 ; Start 05/15/17 at 15:15; Stop 05/15/17 at 15:16; Status DC Insulin Aspart (NovoLOG) 0-7 UNITS TIDWMEALS SQ Last administered on 05/15/17 17:00; Start 05/15/17 at 17:00; Stop 05/15/17 at 21:38; Status DC Dextrose (Dextrose 50%-Water Syringe) 12.5 gm PRN Q15MIN PRN IV SEE COMMENTS; Start 05/15/17 at 16:45 Magnesium Oxide (Magnesium Oxide) 400 mg BID PO Last administered on 05/15/17 21:31; Start 05/15/17 at 17:00; Stop 05/16/17 at 21:01 Insulin Aspart (NovoLOG) 0-7 UNITS QIDACHS SQ Last administered on 05/16/17 12:36; Start 05/16/17 at 07:30 Insulin Aspart (NovoLOG) 12 units 1X ONCE SQ Last administered on 05/15/17 22 :27; Start 05/15/17 at 21:45; Stop 05/15/17 at 21:46; Status DC Allopurinol (Zyloprim) 300 mg DAILY PO Last administered on 05/16/17 08:40; Start 05/16/17 at 09:00 Amlodipine Besylate (Norvasc) 10 mg DAILY PO Last administered on 05/16/17 08 :41; Start 05/16/17 at 09:00 Aspirin (Ecotrin) 81 mg DAILY PO Last administered on 05/16/17 08:40; Start 05/16/17 at 09:00 Mycophenolate Sodium (Myfortic) 180 mg BID PO Last administered on 05/16/17 08:39; Start 05/16/17 at 09:00 Mycophenolate Sodium (Myfortic) 360 mg BID PO Last administered on 05/16/17 08:39; Start 05/16/17 at 09:00 Pioglitazone HCl (Actos) 45 mg DAILY PO Last administered on 05/16/17 08:40; Start 05/16/17 at 09:00 Prednisone (Prednisone) 5 mg DAILY PO Last administered on 05/16/17 08:40; Start 05/16/17 at 09:00 Tacrolimus (Prograf) 3 mg BID PO Last administered on 05/16/17 08:37; Start 05/16/17 at 09:00 Carvedilol (Coreg) 25 mg BIDWMEALS PO ; Start 05/16/17 at 08:00 Vitamin D (Vitamin D3) 2,000 unit DAILY PO Last administered on 05/16/17 08: 40; Start 05/16/17 at 09:00 Glimepiride (Amaryl) 4 mg BIDBFRMEAL PO Last administered on 05/16/17 08:38; Start 05/16/17 at 07:30 Hydralazine HCl (Apresoline) 100 mg BID PO Last administered on 05/16/17 08: 38; Start 05/16/17 at 09:00 Insulin Detemir (Levemir) 10 units HS SQ Last administered on 05/15/17 23:36; Start 05/15/17 at 23:00 Magnesium Oxide (Magnesium Oxide) 800 mg DAILY PO Last administered on 08:38; Start 05/16/17 at 09:00 Potassium Chloride (Klor-Con) 20 meq DAILY PO Last administered on 05/16/17 08:38; Start 05/16/17 at 09:00 Atorvastatin Calcium (Lipitor) 5 mg HS PO ; Start 05/16/17 at 21:00 Tacrolimus (Prograf) 3 mg 1X ONCE PO Last administered on 05/15/17 23:30; Start 05/15/17 at 23:00; Stop 05/15/17 at 23:01; Status DC Carvedilol (Coreg) 25 mg 1X ONCE PO Last administered on 05/15/17 23:31; Start 05/15/17 at 23:00; Stop 05/15/17 at 23:01; Status DC Insulin Detemir (Levemir) 10 units 1X ONCE SQ ; Start 05/15/17 at 22:45; Stop 05/15/17 at 22:46; Status UNV Sodium Chloride 1,000 ml @ 75 mls/hr [id number] IV Last administered on t 11:52; Start 05/16/17 at 11:30 Regadenoson (Lexiscan) 0.4 mg 1X ONCE IV ; Start 05/16/17 at 12:15; Stop 05/23 at 12:16; Status DC Active Scripts Active Actos (Pioglitazone Hcl) 15 Mg Tablet 45 Mg PO DAILY Reported Vitamin D (Cholecalciferol (Vitamin D3)) 2,000 Unit Capsule 1 Cap PO DAILY Potassium Chloride 20 Meq Tablet.er 20 Meq PO DAILY Aspir 81 (Aspirin) 81 Mg Tablet.dr 1 Tab PO DAILY Myfortic (Mycophenolate Sodium) 180 Mg Tablet.dr 180 Mg PO BID Levemir (Insulin Detemir) 100 Unit/1 Ml Vial 10 Unit SQ HS Pravastatin Sodium 20 Mg Tablet 20 Mg PO HS Magnesium (Magnesium Oxide) 400 Mg Capsule 2 Cap PO DAILY Prednisone 5 Mg Tablet 5 Mg PO DAILY Glimepiride 4 Mg Tablet 4 Mg PO BID Allopurinol 300 Mg Tablet 300 Mg PO DAILY Amlodipine Besylate 5 Mg Tablet 10 Mg PO DAILY Hydralazine Hcl 100 Mg Tablet 100 Mg PO BID Carvedilol 25 Mg Tablet 1 Tab PO BID Myfortic (Mycophenolate Sodium) 360 Mg Tablet.dr 360 Mg PO BID Prograf (Tacrolimus) 1 Mg Capsule 3 Cap PO BID Vitals/I & O Vital Sign - Last 24 Hours 05/15/17 05/15/17 05/15/17 05/15/17 14:55 15:54 16:54 17:24 Temp 98.4 98.4 Pulse 78 80 76 76 Resp 18 B/P (MAP) 128/68 (88) 146/82 (103) 143/79 (100) 157/85 (109) Pulse Ox 96 98 96 94 O2 Delivery Room Air Room Air Room Air Room Air 05/15/17 05/15/17 05/15/17 05/15/17 18:17 19:32 20:00 23:30 Temp 98.6 97.9 97.7 98.6 97.9 97.7 Pulse 69 83 75 Resp 20 18 20 B/P (MAP) 140/85 (103) 115/69 (84) 168/86 (113) Pulse Ox 95 98 92 O2 Delivery Room Air Room Air Room Air Room Air 05/15/17 05/16/17 05/16/1705/16/17 23:31 03:54 07:30 08:00 Temp 98.0 97.7 98.0 97.7 Pulse 82 80 72 72 Resp 20 19 B/P (MAP) 168/86 125/75 (92) 146/88 (107) 146/88 Pulse Ox 92 93 O2 Delivery Room Air Room Air 05/16/17 05/16/17 05/16/17 05/16/17 08:05 08:38 08:41 10:40 Temp 97.8 97.8 Pulse 72 72 75 Resp 20 B/P (MAP) 146/88 146/88 119/80 (93) Pulse Ox 94 O2 Delivery Room Air Room Air Intake and Output 05/16/17 05/16/17 05/17/17 15:00 23:00 07:00 Output Total 950 ml Balance -950 ml ROBERTO ROBLERO MD May 16, 2017 13:57
[2017-05-16] MEDS ORDERED: ACETAMINOPHEN 325 MG TABLET. PO PRN (14:00)
[2017-05-16] MEDS ORDERED: hydrALAZINE 20 MG/ML VIAL. IVP PRN (14:00)
[2017-05-16] MEDS ORDERED: MORPHINE SULFATE 2 MG/ML DISP.SYRIN. IV PRN (14:00)
[2017-05-16] MEDS ORDERED: ONDANSETRON PF 4 MG/2 ML VIAL. IV PRN (14:00)
[2017-05-16] MEDS ORDERED: DOCUSATE SODIUM 100 MG CAPSULE. PO PRN (14:00)
[2017-05-16] MEDS ORDERED: FLU VACC QS2017-18 (36MOS+)/PF 0.5 ML SYRINGE. VAX IM ONE (14:45)
[2017-05-16 15:08] VITALS: BP 127/69
--- NOTE | 2017-05-16 16:15 | CARD ---
APPROVED REPORT EXAM: Two-dimensional and M-mode echocardiogram with Doppler and color Doppler. Other Information Quality : Good INDICATION Chest Pain 2D DIMENSIONS RVDd3.7 (2.9-3.5cm)Left Atrium(2D)4.7 (1.6-4.0cm) IVSd1.5 (0.7-1.1cm)Aortic Root(2D)3.2 (2.0-3.7cm) LVDd4.8 (3.9-5.9cm)LVOT Diameter2.2 (1.8-2.4cm) PWd1.4 (0.7-1.1cm)LVDs2.5 (2.5-4.0cm) FS (%) 30.0 %SV84.8 ml LVEF(%)60.0 (>50%) Aortic Valve AoV Peak Ruddy.220.4cm/sAoV VTI36.3cm AO Peak GR.19.4mmHgLVOT Peak Ruddy.124.5cm/s AO Mean GR.10mmHgAVA (VMAX)2.19cm2 JUANITO (VTI)2.90cm2 Mitral Valve MV E Puqttwib74.4cm/sMV DECEL [id number] MV A Eouhkbbn56.6cm/sE/A Ratio0.8 Pulmonary Vein S1 Oixnrkqj81.1cm/sD2 Irgpfepd84.5cm/s LEFT VENTRICLE The left ventricle is normal size. There is moderate concentric left ventricular hypertrophy. The lef t ventricular systolic function is normal and the ejection fraction is within normal range. The Eject ion Fraction is 55-60%. There is normal LV segmental wall motion. Transmitral Doppler flow pattern is Grade I-abnormal relaxation pattern. RIGHT VENTRICLE The right ventricle is normal size. The right ventricular systolic function is normal. ATRIA The left atrium is mildly dilated. The right atrium size is normal. The interatrial septum is intact with no evidence for an atrial septal defect or patent foramen ovale as noted on 2-D or Doppler imagi ng. AORTIC VALVE The aortic valve is sclerotic but trileaflet. Doppler and Color Flow revealed no significant aortic r egurgitation. There is no significant aortic valvular stenosis. MITRAL VALVE The mitral valve is normal in structure and function. There is no evidence of mitral valve prolapse. There is no mitral valve stenosis. Doppler and Color Flow revealed no mitral valve regurgitation note d. TRICUSPID VALVE The tricuspid valve is normal in structure and function. Doppler and Color Flow revealed physiologica l tricuspid regurgitation. There is no tricuspid valve stenosis. PULMONIC VALVE The pulmonary valve is normal in structure and function. Doppler and Color Flow revealed mild pulmoni c valvular regurgitation. There is no pulmonic valvular stenosis. GREAT VESSELS The aortic root is normal in size. The ascending aorta is normal in size. The IVC is normal in size a nd collapses >50% with inspiration. PERICARDIAL EFFUSION There is no evidence of significant pericardial effusion. Critical Notification Critical Value: No <Conclusion> The left ventricular systolic function is normal and the ejection fraction is within normal range. Th e Ejection Fraction is 55-60%. There is normal LV segmental wall motion.
[2017-05-16 19:05] VITALS: BP 146/75
[2017-05-16] MEDS: ATORVASTATIN CALCIUM 10 MG TABLET. PO SCH (20:14)
[2017-05-16] MEDS: INSULIN DETEMIR 300 UNITS/3 ML INSULN.PEN. SQ SCH (21:15)
[2017-05-16 23:05] VITALS: BP 111/52
[2017-05-17] VITALS (15 sets, daily range): BP systolic 107–153; BP diastolic 58–98
[2017-05-17] MEDS: IV NORMAL SALINE 1000ML BAG 1,000 ML IV SCH ×3 (02:15→22:25)
[2017-05-17 04:22] LABS: BASO % 0 % (0-3); EOS % 4 % (0-3); HEMATOCRIT 37.4 % (39.0-53.0); HEMOGLOBIN 12.1 g/dL (13.0-17.5); LYMPH # 1.6 x10^3/uL (1.0-4.8); LYMPH % 32 % (24-48); MEAN CORPUSCULAR HEMOGLOBIN 26 pg (25-35); MEAN CORPUSCULAR HGB CONC 32 g/dL (31-37); MEAN CORPUSCULAR VOLUME 79 fL (79-100); MONO % 14 % (0-9); NEUT % 51 % (31-73); PLATELET COUNT 189 x10^3/uL (140-400); RED BLOOD COUNT 4.73 x10^6/uL (4.30-5.70); RED CELL DISTRIBUTION WIDTH 13.7 % (11.5-14.5)
[2017-05-17 04:48] LABS: CALCIUM 8.7 mg/dL (8.5-10.1); CREATININE 1.4 mg/dL (0.7-1.3); GFR 65.4; POTASSIUM 3.7 mmol/L (3.5-5.1)
[2017-05-17] MEDS ORDERED: IODIXANOL 320 MG/ML 100 ML VIAL. ONE (07:29)
[2017-05-17] MEDS ORDERED: LIDOCAINE 2% 20 ML VIAL. ONE ×2 (07:29→08:56)
[2017-05-17] MEDS ORDERED: HEPARIN for ARTERIAL LINE 1,500 ML ONE (07:30)
[2017-05-17] MEDS ORDERED: fentaNYL PF VIAL 100 MCG/2 ML VIAL ONE (08:33)
[2017-05-17] MEDS ORDERED: MIDAZOLAM HCL/PF 5 MG/5 ML VIAL. ONE (08:33)
--- NOTE | 2017-05-17 08:35 | PDOC ---
MODERATE SEDATION ASSESSMENT RISKS/ALTERNATIVES Risks/Alternatives Risks and alternatives of this type of sedation and procedure discussed with: RISK/ALTERNATIVES: Patient H & P ON CHART H & P H & P on chart and reviewed for co-morbid conditions and appropriate labs. H&P ON CHART: Yes STATUS PREG STATUS ASSESSED: N/A MEDS/ALLERGIES REVIEWED Meds/Allergies Reviewed Medications and Allergies including time and route of recently administered narcotics and sedatives. MEDS/ALLERGIES REVIEWED: Yes ASA RATING ASA RATING: II AIRWAY ASSESSMENT Airway Assessment Airway patency, oral function limitations, presence of caps, crowns, dentures, partials, and ability to extend neck assessed. AIRWAY ASSESSMENT: Yes MALLAMPATI SCORE MALLAMPATI SCORE: II PRE-SEDATION ASSESSMENT PRE-SEDATION ASSESSMENT: Yes MEAGAN HUSSEIN MD May 17, 2017 08:35
[2017-05-17] MEDS ORDERED: fentaNYL PF VIAL 100 MCG/2 ML VIAL IV ONE (09:00)
[2017-05-17] MEDS ORDERED: MIDAZOLAM HCL/PF 5 MG/5 ML VIAL. IV ONE (09:00)
[2017-05-17] MEDS ORDERED: CONTRAST GIVEN MC PRN (09:00)
[2017-05-17] MEDS ORDERED: LIDOCAINE 2% 20 ML VIAL. IJ ONE (09:00)
[2017-05-17] MEDS ORDERED: IODIXANOL 320 MG/ML 100 ML VIAL. IART ONE (09:00)
[2017-05-17] MEDS: GLIMEPIRIDE 2 MG TABLET. PO SCH ×2 (10:09→17:44)
[2017-05-17] MEDS: predniSONE 5 MG TABLET PO SCH (10:10)
[2017-05-17] MEDS: CARVEDILOL 12.5 MG TABLET. PO SCH ×2 (10:10→17:45)
[2017-05-17] MEDS: POTASSIUM CHLORIDE 20 MEQ TABLET.ER. PO SCH (10:10)
[2017-05-17] MEDS: ALLOPURINOL 300 MG TABLET. PO SCH (10:10)
[2017-05-17] MEDS: ASPIRIN ENTERIC COATED 81 MG TABLET.DR. PO SCH (10:11)
[2017-05-17] MEDS: amLODIPine BESYLATE 5 MG TABLET PO SCH (10:11)
[2017-05-17] MEDS: CHOLECALCIFEROL (VITAMIN D3) 1,000 UNIT TABLET PO SCH (10:11)
[2017-05-17] MEDS: TACROLIMUS 1 MG CAPSULE PO SCH ×2 (10:12→20:12)
[2017-05-17] MEDS: MAGNESIUM OXIDE 400 MG TABLET PO SCH (10:12)
[2017-05-17] MEDS: PIOGLITAZONE 15 MG TABLET. PO SCH (10:12)
[2017-05-17] MEDS: MYCOPHENOLATE ACID 180 MG TABLET.DR. PO SCH ×4 (10:12→20:12)
[2017-05-17] MEDS ORDERED: INSU100I27 SQ (10:41)
[2017-05-17] MEDS: INSULIN ASPART 300 UNITS/3 ML INSULN.PEN SQ SCH ×5 (10:59→21:00)
[2017-05-17] MEDS ORDERED: IV NORMAL SALINE 1000ML BAG 1,000 ML IV SCH (11:16)
--- NOTE | 2017-05-17 11:24 | PDOC ---
Renal-Progress Notes Subjective Notes Notes FEELS WELL History of Present Illness Hx of present illness NO PROBLEM Vitals Vitals Vital Signs Date Time Temp Pulse Resp B/P (MAP) Pulse Ox O2 Delivery O2 Flow Rate FiO2 05/17/17 11:15 Room Air 05/17/17 10:12 71 143/98 05/17/17 10:10 97.5 18 96 97.5 Weight Weight [ ] Labs Labs Laboratory Tests Test 05/16/17 11:46 05/16/17 16:45 05/16/17 20:52 05/17/17 03:50 Glucose (Fingerstick) 216 mg/dL (70-99) 276 mg/dL (70-99) 407 mg/dL (70-99) White Blood Count 5.0 x10^3/uL (4.0-11.0) Red Blood Count 4.73 x10^6/uL (4.30-5.70) Hemoglobin 12.1 g/dL (13.0-17.5) Hematocrit 37.4 % (39.0-53.0) Mean Corpuscular Volume 79 fL (79-100) Mean Corpuscular Hemoglobin 26 pg (25-35) Mean Corpuscular Hemoglobin Concent 32 g/dL (31-37) Red Cell Distribution Width 13.7 % (11.5-14.5) Platelet Count 189 x10^3/uL (140-400) Neutrophils (%) (Auto) 51 % (31-73) Lymphocytes (%) (Auto) 32 % (24-48) Monocytes (%) (Auto) 14 % (0-9) Eosinophils (%) (Auto) 4 % (0-3) Basophils (%) (Auto) 0 % (0-3) Neutrophils # (Auto) 2.6 x10^3uL (1.8-7.7) Lymphocytes # (Auto) 1.6 x10^3/uL (1.0-4.8) Monocytes # (Auto) 0.7 x10^3/uL (0.0-1.1) Eosinophils # (Auto) 0.2 x10^3/uL (0.0-0.7) Basophils # (Auto) 0.0 x10^3/uL (0.0-0.2) Sodium Level 136 mmol/L (136-145) Potassium Level 3.7 mmol/L (3.5-5.1) Chloride Level 104 mmol/L (98-107) Carbon Dioxide Level 25 mmol/L (21-32) Anion Gap 7 (6-14) Blood Urea Nitrogen 20 mg/dL (8-26) Creatinine 1.4 mg/dL (0.7-1.3) Estimated GFR (Cockcroft-Gault) 65.4 Glucose Level 285 mg/dL (70-99) Calcium Level 8.7 mg/dL (8.5-10.1) Test 05/17/17 10:03 Glucose (Fingerstick) 256 mg/dL (70-99) Review of Systems Constitutional: yes: alert, oriented Ears/Nose/Throat: Yes: no symptom reported Pulmonary: Yes no symptom reported Cardiovascular: Yes no symptom reported Gastrointestional: Yes: no symptom reported Musculoskeletal: Yes: no symptom reported Skin: Yes no symptom reported Psychiatric/Neurological: Yes: no symptom reported Physical Exam General Appearance: mild distress Skin: warm Respiratory: bilateral CTA Heart: S1S2 Abdomen: soft, bowel sounds present Genitourinary: bladder flat Extremities: pulses present Neurology: alert, oriented Musculoskeletal: Osteoarthritis Assessment Assessment IMP HX RENAL TRANSPLANT CHEST PAIN DM II - POORLY CONTROLLED HTN S/P LHC-CLEAN PLAN CONT IVF'S THROUGH TODAY AM LABS IF CR STABLE IN AM THEN OK TO D/C BERTIN GU MD May 17, 2017 11:24
[2017-05-17] MEDS ORDERED: 0.9 % SODIUM CHLORIDE 10 ML DISP.SYRIN. IV PRN (11:30)
[2017-05-17] MEDS ORDERED: NITROGLYCERIN SUBLINGUAL 0.4 MG BOTTLE OF 25. SL PRN (11:30)
[2017-05-17] MEDS: traMADol 50 MG TABLET PO PRN ×2 (13:29→20:15)
--- NOTE | 2017-05-17 13:41 | PDOC ---
PROGRESS NOTES Chief Complaint Chief Complaint Chest pain, 2/2 ALYSIA possibly HTN HLP Uncontrolled DM2: with steroid use and transplant meds CKD: past ESRD/dialysis resolved with renal transplant, Remains stable Chronic immunosuppressions: with prednisone and prograf and myfortic. ALYSIA: broken CPAP again. ADELE, vasomotor mild malnutrition plan: fu with renal, card cath today, clean cont home meds on immunosuppressive meds for kidney transplant on po DM2 meds, increase levemir to 20u qhs, add aspart 5u tid, ssi, check hba1c dvt ppx echo normal asked pt to talk to CPAP company for the hose Cr slightly higher than yesterday, cont ivf dc tmr if Cr stable History of Present Illness History of Present Illness ROS: no fever, chills, sob or chest pain some chest uncomfortable, no exertional ,no tenderness takes dm2 po meds ,but not levevir with no insurance CEneg cath neg Vitals Vitals Vital Signs Date Time Temp Pulse Resp B/P (MAP) Pulse Ox O2 Delivery O2 Flow Rate FiO2 05/17/17 13:29 Room Air 05/17/17 11:46 97.9 75 18 140/76 (97) 95 97.9 Physical Exam General: Alert, Oriented X3, Cooperative, No acute distress Heart: Regular rate (SR), Normal S1, Normal S2, Other (3/6 daistolic murmur to MAEGAN border) Lungs: Clear Abdomen: Soft, No tenderness, Other (truncal obesity) Extremities: No cyanosis, Other ( bl leg 1 + edema) Skin: No breakdown, No significant lesion Labs LABS Laboratory Tests Test 05/16/17 16:45 05/16/17 20:52 05/17/17 03:50 05/17/17 10:03 Glucose (Fingerstick) 276 mg/dL (70-99) 407 mg/dL (70-99) 256 mg/dL (70-99) White Blood Count 5.0 x10^3/uL (4.0-11.0) Red Blood Count 4.73 x10^6/uL (4.30-5.70) Hemoglobin 12.1 g/dL (13.0-17.5) Hematocrit 37.4 % (39.0-53.0) Mean Corpuscular Volume 79 fL (79-100) Mean Corpuscular Hemoglobin 26 pg (25-35) Mean Corpuscular Hemoglobin Concent 32 g/dL (31-37) Red Cell Distribution Width 13.7 % (11.5-14.5) Platelet Count 189 x10^3/uL (140-400) Neutrophils (%) (Auto) 51 % (31-73) Lymphocytes (%) (Auto) 32 % (24-48) Monocytes (%) (Auto) 14 % (0-9) Eosinophils (%) (Auto) 4 % (0-3) Basophils (%) (Auto) 0 % (0-3) Neutrophils # (Auto) 2.6 x10^3uL (1.8-7.7) Lymphocytes # (Auto) 1.6 x10^3/uL (1.0-4.8) Monocytes # (Auto) 0.7 x10^3/uL (0.0-1.1) Eosinophils # (Auto) 0.2 x10^3/uL (0.0-0.7) Basophils # (Auto) 0.0 x10^3/uL (0.0-0.2) Sodium Level 136 mmol/L (136-145) Potassium Level 3.7 mmol/L (3.5-5.1) Chloride Level 104 mmol/L (98-107) Carbon Dioxide Level 25 mmol/L (21-32) Anion Gap 7 (6-14) Blood Urea Nitrogen 20 mg/dL (8-26) Creatinine 1.4 mg/dL (0.7-1.3) Estimated GFR (Cockcroft-Gault) 65.4 Glucose Level 285 mg/dL (70-99) Calcium Level 8.7 mg/dL (8.5-10.1) Test 05/17/17 11:37 Glucose (Fingerstick) 280 mg/dL (70-99) Assessment and Plan Assessmemt and Plan Problems Medical Problems: (1) Chest pain Status: Acute (2) Hyperglycemia Status: Acute Problems: Comment Review of Relevant I have reviewed the following items izabela (where applicable) has been applied. Labs Laboratory Tests Test 05/15/17 15:01 05/15/17 15:05 05/15/17 17:06 05/15/17 17:40 Glucose (Fingerstick) 463 mg/dL (70-99) 363 mg/dL (70-99) White Blood Count 5.1 x10^3/uL (4.0-11.0) Red Blood Count 4.84 x10^6/uL (4.30-5.70) Hemoglobin 12.3 g/dL (13.0-17.5) Hematocrit 38.3 % (39.0-53.0) Mean Corpuscular Volume 79 fL (79-100) Mean Corpuscular Hemoglobin 25 pg (25-35) Mean Corpuscular Hemoglobin Concent 32 g/dL (31-37) Red Cell Distribution Width 13.4 % (11.5-14.5) Platelet Count 188 x10^3/uL (140-400) Neutrophils (%) (Auto) 55 % (31-73) Lymphocytes (%) (Auto) 27 % (24-48) Monocytes (%) (Auto) 14 % (0-9) Eosinophils (%) (Auto) 4 % (0-3) Basophils (%) (Auto) 1 % (0-3) Neutrophils # (Auto) 2.8 x10^3uL (1.8-7.7) Lymphocytes # (Auto) 1.4 x10^3/uL (1.0-4.8) Monocytes # (Auto) 0.7 x10^3/uL (0.0-1.1) Eosinophils # (Auto) 0.2 x10^3/uL (0.0-0.7) Basophils # (Auto) 0.0 x10^3/uL (0.0-0.2) Prothrombin Time 12.3 SEC (11.7-14.0) Prothromb Time International Ratio 1.0 (0.8-1.1) Activated Partial Thromboplast Time 32 SEC (24-38) Sodium Level 133 mmol/L (136-145) Potassium Level 4.0 mmol/L (3.5-5.1) Chloride Level 98 mmol/L (98-107) Carbon Dioxide Level 26 mmol/L (21-32) Anion Gap 9 (6-14) Blood Urea Nitrogen 24 mg/dL (8-26) Creatinine 1.5 mg/dL (0.7-1.3) Estimated GFR (Cockcroft-Gault) 60.4 BUN/Creatinine Ratio 16 (6-20) Glucose Level 425 mg/dL (70-99) Calcium Level 9.7 mg/dL (8.5-10.1) Magnesium Level 1.3 mg/dL (1.8-2.4) Total Bilirubin 0.3 mg/dL (0.2-1.0) Aspartate Amino Transf (AST/SGOT) 18 U/L (15-37) Alanine Aminotransferase (ALT/SGPT) 20 U/L (16-63) Alkaline Phosphatase 78 U/L (46-116) Troponin I Quantitative < 0.017 ng/mL (0.000-0.055) SD-Fqj-S-Type Natriuretic Peptide 44 pg/mL (0-124) Total Protein 8.0 g/dL (6.4-8.2) Albumin 3.6 g/dL (3.4-5.0) Albumin/Globulin Ratio 0.8 (1.0-1.7) Urine Collection Type Unknown Urine Color Yellow Urine Clarity Clear Urine pH 6.0 Urine Specific [place] >=1.030 Urine Protein Negative mg/dL (NEG-TRACE) Urine Glucose (UA) >=1000 mg/dL (NEG) Urine Ketones (Stick) Trace mg/dL (NEG) Urine Blood Negative (NEG) Urine Nitrite Negative (NEG) Urine Bilirubin Negative (NEG) Urine Urobilinogen Dipstick 0.2 mg/dL (0.2 mg/dL) Urine Leukocyte Esterase Negative (NEG) Urine RBC Occ /HPF (0-2) Urine WBC 0 /HPF (0-4) Urine Squamous Epithelial Cells None /LPF Urine Bacteria 0 /HPF (0-FEW) Test 05/15/17 21:20 05/16/17 03:30 05/16/17 03:35 05/16/17 08:05 Glucose (Fingerstick) 371 mg/dL (70-99) 184 mg/dL (70-99) Sodium Level 140 mmol/L (136-145) Potassium Level 3.5 mmol/L (3.5-5.1) Chloride Level 105 mmol/L (98-107) Carbon Dioxide Level 27 mmol/L (21-32) Anion Gap 8 (6-14) Blood Urea Nitrogen 19 mg/dL (8-26) Creatinine 1.2 mg/dL (0.7-1.3) Estimated GFR (Cockcroft-Gault) 78.2 BUN/Creatinine Ratio 16 (6-20) Glucose Level 120 mg/dL (70-99) Calcium Level 8.9 mg/dL (8.5-10.1) Total Bilirubin 0.2 mg/dL (0.2-1.0) Aspartate Amino Transf (AST/SGOT) 11 U/L (15-37) Alanine Aminotransferase (ALT/SGPT) 16 U/L (16-63) Alkaline Phosphatase 49 U/L (46-116) Troponin I Quantitative < 0.017 ng/mL (0.000-0.055) Total Protein 6.3 g/dL (6.4-8.2) Albumin 2.9 g/dL (3.4-5.0) Albumin/Globulin Ratio 0.9 (1.0-1.7) Triglycerides Level 107 mg/dL (0-150) Cholesterol Level 178 mg/dL (0-200) LDL Cholesterol, Calculated 119 mg/dL (0-100) VLDL Cholesterol, Calculated 21 mg/dL (0-40) Non-HDL Cholesterol Calculated 140 mg/dL (0-129) HDL Cholesterol 38 mg/dL (40-60) Cholesterol/HDL Ratio 4.7 White Blood Count 4.0 x10^3/uL (4.0-11.0) Red Blood Count 4.60 x10^6/uL (4.30-5.70) Hemoglobin 11.8 g/dL (13.0-17.5) Hematocrit 36.2 % (39.0-53.0) Mean Corpuscular Volume 79 fL (79-100) Mean Corpuscular Hemoglobin 26 pg (25-35) Mean Corpuscular Hemoglobin Concent 33 g/dL (31-37) Red Cell Distribution Width 13.2 % (11.5-14.5) Platelet Count 173 x10^3/uL (140-400) Neutrophils (%) (Auto) 40 % (31-73) Lymphocytes (%) (Auto) 35 % (24-48) Monocytes (%) (Auto) 18 % (0-9) Eosinophils (%) (Auto) 6 % (0-3) Basophils (%) (Auto) 1 % (0-3) Neutrophils # (Auto) 1.6 x10^3uL (1.8-7.7) Lymphocytes # (Auto) 1.4 x10^3/uL (1.0-4.8) Monocytes # (Auto) 0.7 x10^3/uL (0.0-1.1) Eosinophils # (Auto) 0.2 x10^3/uL (0.0-0.7) Basophils # (Auto) 0.0 x10^3/uL (0.0-0.2) Segmented Neutrophils % 46 % (35-66) Band Neutrophils % 1 % (0-9) Lymphocytes % 30 % (24-48) Atypical Lymphocytes % (Manual) 1 % (0-0) Monocytes % 16 % (0-10) Eosinophils % 6 % (0-5) Platelet Estimate Adequate (ADEQUATE) Test 05/16/17 11:46 05/16/17 16:45 05/16/17 20:52 05/17/17 03:50 Glucose (Fingerstick) 216 mg/dL (70-99) 276 mg/dL (70-99) 407 mg/dL (70-99) White Blood Count 5.0 x10^3/uL (4.0-11.0) Red Blood Count 4.73 x10^6/uL (4.30-5.70) Hemoglobin 12.1 g/dL (13.0-17.5) Hematocrit 37.4 % (39.0-53.0) Mean Corpuscular Volume 79 fL (79-100) Mean Corpuscular Hemoglobin 26 pg (25-35) Mean Corpuscular Hemoglobin Concent 32 g/dL (31-37) Red Cell Distribution Width 13.7 % (11.5-14.5) Platelet Count 189 x10^3/uL (140-400) Neutrophils (%) (Auto) 51 % (31-73) Lymphocytes (%) (Auto) 32 % (24-48) Monocytes (%) (Auto) 14 % (0-9) Eosinophils (%) (Auto) 4 % (0-3) Basophils (%) (Auto) 0 % (0-3) Neutrophils # (Auto) 2.6 x10^3uL (1.8-7.7) Lymphocytes # (Auto) 1.6 x10^3/uL (1.0-4.8) Monocytes # (Auto) 0.7 x10^3/uL (0.0-1.1) Eosinophils # (Auto) 0.2 x10^3/uL (0.0-0.7) Basophils # (Auto) 0.0 x10^3/uL (0.0-0.2) Sodium Level 136 mmol/L (136-145) Potassium Level 3.7 mmol/L (3.5-5.1) Chloride Level 104 mmol/L (98-107) Carbon Dioxide Level 25 mmol/L (21-32) Anion Gap 7 (6-14) Blood Urea Nitrogen 20 mg/dL (8-26) Creatinine 1.4 mg/dL (0.7-1.3) Estimated GFR (Cockcroft-Gault) 65.4 Glucose Level 285 mg/dL (70-99) Calcium Level 8.7 mg/dL (8.5-10.1) Test 05/17/17 10:03 05/17/17 11:37 Glucose (Fingerstick) 256 mg/dL (70-99) 280 mg/dL (70-99) Laboratory Tests Test 05/16/17 16:45 05/16/17 20:52 05/17/17 03:50 05/17/17 10:03 Glucose (Fingerstick) 276 mg/dL (70-99) 407 mg/dL (70-99) 256 mg/dL (70-99) White Blood Count 5.0 x10^3/uL (4.0-11.0) Red Blood Count 4.73 x10^6/uL (4.30-5.70) Hemoglobin 12.1 g/dL (13.0-17.5) Hematocrit 37.4 % (39.0-53.0) Mean Corpuscular Volume 79 fL (79-100) Mean Corpuscular Hemoglobin 26 pg (25-35) Mean Corpuscular Hemoglobin Concent 32 g/dL (31-37) Red Cell Distribution Width 13.7 % (11.5-14.5) Platelet Count 189 x10^3/uL (140-400) Neutrophils (%) (Auto) 51 % (31-73) Lymphocytes (%) (Auto) 32 % (24-48) Monocytes (%) (Auto) 14 % (0-9) Eosinophils (%) (Auto) 4 % (0-3) Basophils (%) (Auto) 0 % (0-3) Neutrophils # (Auto) 2.6 x10^3uL (1.8-7.7) Lymphocytes # (Auto) 1.6 x10^3/uL (1.0-4.8) Monocytes # (Auto) 0.7 x10^3/uL (0.0-1.1) Eosinophils # (Auto) 0.2 x10^3/uL (0.0-0.7) Basophils # (Auto) 0.0 x10^3/uL (0.0-0.2) Sodium Level 136 mmol/L (136-145) Potassium Level 3.7 mmol/L (3.5-5.1) Chloride Level 104 mmol/L (98-107) Carbon Dioxide Level 25 mmol/L (21-32) Anion Gap 7 (6-14) Blood Urea Nitrogen 20 mg/dL (8-26) Creatinine 1.4 mg/dL (0.7-1.3) Estimated GFR (Cockcroft-Gault) 65.4 Glucose Level 285 mg/dL (70-99) Calcium Level 8.7 mg/dL (8.5-10.1) Test 05/17/17 11:37 Glucose (Fingerstick) 280 mg/dL (70-99) Medications Current Medications Sodium Chloride 1,000 ml @ 1,000 mls/hr 1X ONCE IV Last administered on 15:40; Start 05/15/17 at 15:15; Stop 05/15/17 at 16:14; Status DC Aspirin (Odn Aspirin) 325 mg 1X ONCE PO Last administered on 05/15/17 15:39 ; Start 05/15/17 at 15:15; Stop 05/15/17 at 15:16; Status DC Insulin Aspart (NovoLOG) 0-7 UNITS TIDWMEALS SQ Last administered on 05/15/17 17:00; Start 05/15/17 at 17:00; Stop 05/15/17 at 21:38; Status DC Dextrose (Dextrose 50%-Water Syringe) 12.5 gm PRN Q15MIN PRN IV SEE COMMENTS; Start 05/15/17 at 16:45 Magnesium Oxide (Magnesium Oxide) 400 mg BID PO Last administered on 20:13; Start 05/15/17 at 17:00; Stop 05/16/17 at 21:01; Status DC Insulin Aspart (NovoLOG) 0-7 UNITS QIDACHS SQ Last administered on 05/17/17 13:32; Start 05/16/17 at 07:30 Insulin Aspart (NovoLOG) 12 units 1X ONCE SQ Last administered on 05/15/17 22 :27; Start 05/15/17 at 21:45; Stop 05/15/17 at 21:46; Status DC Allopurinol (Zyloprim) 300 mg DAILY PO Last administered on 05/17/17 10:10; Start 05/16/17 at 09:00 Amlodipine Besylate (Norvasc) 10 mg DAILY PO Last administered on 05/17/17 10 :11; Start 05/16/17 at 09:00 Aspirin (Ecotrin) 81 mg DAILY PO Last administered on 05/17/17 10:11; Start 05/16/17 at 09:00 Mycophenolate Sodium (Myfortic) 180 mg BID PO Last administered on 05/17/17 10:12; Start 05/16/17 at 09:00 Mycophenolate Sodium (Myfortic) 360 mg BID PO Last administered on 05/17/17 10:13; Start 05/16/17 at 09:00 Pioglitazone HCl (Actos) 45 mg DAILY PO Last administered on 05/17/17 10:12; Start 05/16/17 at 09:00 Prednisone (Prednisone) 5 mg DAILY PO Last administered on 05/17/17 10:10; Start 05/16/17 at 09:00 Tacrolimus (Prograf) 3 mg BID PO Last administered on 05/17/17 10:12; Start 05/16/17 at 09:00 Carvedilol (Coreg) 25 mg BIDWMEALS PO Last administered on 05/17/17 10:10; Start 05/16/17 at 08:00 Vitamin D (Vitamin D3) 2,000 unit DAILY PO Last administered on 05/17/17 10: 11; Start 05/16/17 at 09:00 Glimepiride (Amaryl) 4 mg BIDBFRMEAL PO Last administered on 05/17/17 10:09; Start 05/16/17 at 07:30 Hydralazine HCl (Apresoline) 100 mg BID PO Last administered on 05/17/17 10: 12; Start 05/16/17 at 09:00 Insulin Detemir (Levemir) 10 units HS SQ Last administered on 05/16/17 21:15 ; Start 05/15/17 at 23:00; Stop 05/17/17 at 10:32; Status DC Magnesium Oxide (Magnesium Oxide) 800 mg DAILY PO Last administered on 10:12; Start 05/16/17 at 09:00 Potassium Chloride (Klor-Con) 20 meq DAILY PO Last administered on 05/17/17 10:10; Start 05/16/17 at 09:00 Atorvastatin Calcium (Lipitor) 5 mg HS PO Last administered on 05/16/17 20:14 ; Start 05/16/17 at 21:00 Tacrolimus (Prograf) 3 mg 1X ONCE PO Last administered on 05/15/17 23:30; Start 05/15/17 at 23:00; Stop 05/15/17 at 23:01; Status DC Carvedilol (Coreg) 25 mg 1X ONCE PO Last administered on 05/15/17 23:31; Start 05/15/17 at 23:00; Stop 05/15/17 at 23:01; Status DC Insulin Detemir (Levemir) 10 units 1X ONCE SQ ; Start 05/15/17 at 22:45; Stop 05/15/17 at 22:46; Status UNV Sodium Chloride 1,000 ml @ 100 mls/hr Q10H IV Last administered on 05/17/17 13:28; Start 05/16/17 at 11:30 Regadenoson (Lexiscan) 0.4 mg 1X ONCE IV ; Start 05/16/17 at 12:15; Stop 05/23 at 12:16; Status DC Acetaminophen (Tylenol) 650 mg PRN Q6HRS PRN PO FEVER; Start 05/16/17 at 14:00 Ondansetron HCl (Zofran) 4 mg PRN Q6HRS PRN IV NAUSEA/VOMITING; Start at 14:00 Morphine Sulfate 2 mg PRN Q2HR PRN IV PAIN; Start 05/16/17 at 14:00 Tramadol HCl (Ultram) 50 mg PRN Q6HRS PRN PO PAIN Last administered on 13:29; Start 05/16/17 at 14:00 Hydralazine HCl (Apresoline Inj) 10 mg PRN Q4HRS PRN IVP ELEVATED BP, SEE COMMENTS; Start 05/16/17 at 14:00 Docusate Sodium (Colace) 100 mg PRN DAILY PRN PO CONSTIPATION; Start 05/16/17 at 14:00 Influenza Virus Vaccine Quadrival (Fluarix Quad [id number] Syringe) 0.5 ml ONCE ONCE VAX IM Last administered on 05/16/17 17:24; Start 05/16/17 at 14:45; Stop 05/16/17 at 14:46; Status DC Iodixanol (Visipaque 320) 100 ml STK-MED ONCE .ROUTE ; Start 05/17/17 at 07:29 ; Stop 05/17/17 at 07:30; Status DC Lidocaine HCl 20 ml STK-MED ONCE .ROUTE ; Start 05/17/17 at 07:29; Stop at 07:30; Status DC Heparin Sodium/ Sodium Chloride 1,500 ml @ As Directed STK-MED ONCE .ROUTE ; Start 05/17/17 at 07:30; Stop 05/17/17 at 07:31; Status DC Fentanyl Citrate (Fentanyl 2ml Vial) 100 mcg STK-MED ONCE .ROUTE ; Start at 08:33; Stop 05/17/17 at 08:34; Status DC Midazolam HCl (Versed) 5 mg STK-MED ONCE .ROUTE ; Start 05/17/17 at 08:33; Stop 05/17/17 at 08:34; Status DC Heparin Sodium/ Sodium Chloride 1,000 unit 1X ONCE IART Last administered on 05/17/17 09:37; Start 05/17/17 at 09:00; Stop 05/17/17 at 09:01; Status DC Heparin Sodium/ Sodium Chloride 1,000 unit 1X ONCE IART Last administered on 05/17/17 09:37; Start 05/17/17 at 09:00; Stop 05/17/17 at 09:01; Status DC Midazolam HCl (Versed) 5 mg 1X ONCE IV Last administered on 05/17/17 09:39; Start 05/17/17 at 09:00; Stop 05/17/17 at 09:01; Status DC Fentanyl Citrate (Fentanyl 2ml Vial) 100 mcg 1X ONCE IV Last administered on 05/17/17 09:38; Start 05/17/17 at 09:00; Stop 05/17/17 at 09:01; Status DC Iodixanol (Visipaque 320) 100 ml 1X ONCE IART Last administered on 05/17/17 09:38; Start 05/17/17 at 09:00; Stop 05/17/17 at 09:01; Status DC Lidocaine HCl 20 ml 1X ONCE IJ Last administered on 05/17/17 09:38; Start 05/17/17 at 09:00; Stop 05/17/17 at 09:01; Status DC Info (Do NOT chart on this entry -- for MONITORING) 1 each PRN DAILY PRN MC SEE COMMENTS; Start 05/17/17 at 09:00; Stop 05/19/17 at 08:59 Lidocaine HCl 20 ml STK-MED ONCE .ROUTE ; Start 05/17/17 at 08:56; Stop at 08:57; Status DC Insulin Detemir (Levemir) 15 units HS SQ ; Start 05/17/17 at 21:00 Sodium Chloride (Normal Saline Flush) 3 ml QSHIFT PRN IV AFTER MEDS AND BLOOD DRAWS; Start 05/17/17 at 11:30 Sodium Chloride 1,000 ml @ 80 mls/hr [id number] IV ; Start 05/17/17 at 11:16; Stop 05/17/17 at 19:15 Nitroglycerin (Nitrostat) 0.4 mg PRN Q5MIN PRN SL CHEST PAIN; Start 05/17/17 at 11:30 Active Scripts Active Levemir Flextouch (Insulin Detemir) 100 Unit/1 Ml Insuln.pen 15 Units SQ HS 30 Days Actos (Pioglitazone Hcl) 15 Mg Tablet 45 Mg PO DAILY Reported Vitamin D (Cholecalciferol (Vitamin D3)) 2,000 Unit Capsule 1 Cap PO DAILY Potassium Chloride 20 Meq Tablet.er 20 Meq PO DAILY Aspir 81 (Aspirin) 81 Mg Tablet.dr 1 Tab PO DAILY Myfortic (Mycophenolate Sodium) 180 Mg Tablet.dr 180 Mg PO BID Pravastatin Sodium 20 Mg Tablet 20 Mg PO HS Magnesium (Magnesium Oxide) 400 Mg Capsule 2 Cap PO DAILY Prednisone 5 Mg Tablet 5 Mg PO DAILY Glimepiride 4 Mg Tablet 4 Mg PO BID Allopurinol 300 Mg Tablet 300 Mg PO DAILY Amlodipine Besylate 5 Mg Tablet 10 Mg PO DAILY Hydralazine Hcl 100 Mg Tablet 100 Mg PO BID Carvedilol 25 Mg Tablet 1 Tab PO BID Myfortic (Mycophenolate Sodium) 360 Mg Tablet.dr 360 Mg PO BID Prograf (Tacrolimus) 1 Mg Capsule 3 Cap PO BID Vitals/I & O Vital Sign - Last 24 Hours 05/16/17 05/16/17 05/16/17 05/16/17 15:08 17:24 19:05 20:00 Temp 97.9 98.0 97.9 98.0 Pulse 82 82 87 Resp 20 18 B/P (MAP) 127/69 (88) 127/69 146/75 (98) Pulse Ox 94 95 O2 Delivery Room Air Room Air Room Air 05/16/17 05/16/17 05/17/17 05/17/17 20:14 23:05 03:05 07:10 Temp 98.4 98.0 97.7 98.4 98.0 97.7 Pulse 87 74 74 75 Resp 18 B/P (MAP) 146/75 111/52 (71) 107/58 (74) 145/75 (98) Pulse Ox 95 96 93 O2 Delivery Room Air Room Air Room Air 05/17/17 05/17/17 05/17/17 05/17/17 07:40 09:34 09:38 09:50 Pulse 71 Resp 19 21 Pulse Ox 100 98 O2 Delivery Room Air Room Air Room Air Room Air 05/17/17 05/17/17 05/17/17 05/17/17 10:05 10:10 10:10 10:11 Temp 97.5 97.5 Pulse 71 68 71 Resp 18 B/P (MAP) 143/98 130/84 (99) 143/98 Pulse Ox 96 O2 Delivery Room Air Room Air 05/17/17 05/17/17 05/17/17 05/17/17 10:12 10:20 10:35 10:50 Pulse 71 B/P (MAP) 143/98 O2 Delivery Room Air Room Air Room Air 05/17/17 05/17/17 05/17/17 11:15 11:46 13:29 Temp 97.9 97.9 Pulse 75 Resp 18 B/P (MAP) 140/76 (97) Pulse Ox 95 O2 Delivery Room Air Room Air Room Air Intake and Output 05/17/17 05/17/17 05/18/17 15:00 23:00 07:00 Intake Total 240 ml Balance 240 ml ROBERTO ROBLERO MD May 17, 2017 13:41
--- NOTE | 2017-05-17 17:03 | CARD ---
APPROVED REPORT Procedures. Left heart catheterization. Selective coronary angiogram. The patient is a 46-year-old male with exertional chest pain. He has a history of end-stage renal dis ease initially treated with hemodialysis and then a renal transplant. He also has a history of diabet es and hypertension. Cardiac catheterization was recommended. Risks and benefits were discussed. The patient agreed to proceed. After informed consent was obtained the patient was brought to the heart catheterization lab. The are a of the right femoral artery was initially prepared the usual manner with Betadine, sterile draping and local anesthetic. An 18-gauge needle was used to enter the right femoral artery, a wire placed an d a 6 Jamaican sheath placed over the wire. However we could not access the aorta from this position se condary to the patient's previous transplant. Therefore the left femoral artery was prepared in the u sual manner. An 18-gauge needle was used to enter the left femoral artery, a wire placed the 6 Jamaican sheath placed over the wire. 6 Jamaican JL4 and then a JL 5 diagnostic catheters were used to engage t he left coronary system and sequential injections in various views were obtained. A 6 [place]ican Derek right catheter was used to engage the right coronary system and sequential injections in various vie ws were obtained. A pigtail catheter advanced to the ascending aorta and the left ventricle. Pressure s were obtained. No left ventricular gram was performed. Pullback pressures were measured. The cathet er was removed from the patient. Injections of both sites showed normal placement of the sheath. The sheaths were removed and sealed with Angio-Seal products. The patient was moved to the holding area i n stable condition. Findings. Hemodynamics. LV pressure 126/18, aortic root pressure of 124/76. Coronaries. Left main. The left main was a large vessel. It was short. It had no lesions. Left anterior descending. The LAD was a large vessel with normal distribution. It had no lesions. Left circumflex. The left circumflex was dominant vessel. It had mild disease in the obtuse marginal one branch of 10% or less. Right coronary artery. The right coronary was a small nondominant vessel. It had mild distal disease of 10%. <Conclusion> No angiographic evidence of significant coronary artery disease. Minimal lesions of less than 10% in the obtuse marginal and right coronary artery vessels. Normal left ventricular end-diastolic pressure.
[2017-05-17] MEDS: ATORVASTATIN CALCIUM 10 MG TABLET. PO SCH (20:11)
[2017-05-17] MEDS ORDERED: TEMAZEPAM 15 MG CAPSULE PO PRN (20:45)
[2017-05-17] MEDS ORDERED: INSULIN DETEMIR 300 UNITS/3 ML INSULN.PEN. SQ SCH ×2 (21:00)
[2017-05-18 03:05] VITALS: BP 129/74
[2017-05-18 04:09] LABS: CALCIUM 8.4 mg/dL (8.5-10.1); CREATININE 1.3 mg/dL (0.7-1.3); GFR 71.3; POTASSIUM 3.6 mmol/L (3.5-5.1)
[2017-05-18 07:50] VITALS: BP 152/97
[2017-05-18] MEDS: POTASSIUM CHLORIDE 20 MEQ TABLET.ER. PO SCH (09:18)
[2017-05-18] MEDS: MAGNESIUM OXIDE 400 MG TABLET PO SCH (09:18)
[2017-05-18] MEDS: MYCOPHENOLATE ACID 180 MG TABLET.DR. PO SCH ×2 (09:19→09:20)
[2017-05-18] MEDS: ALLOPURINOL 300 MG TABLET. PO SCH (09:19)
[2017-05-18] MEDS: amLODIPine BESYLATE 5 MG TABLET PO SCH (09:19)
[2017-05-18] MEDS: CHOLECALCIFEROL (VITAMIN D3) 1,000 UNIT TABLET PO SCH (09:20)
[2017-05-18] MEDS: GLIMEPIRIDE 2 MG TABLET. PO SCH (09:20)
[2017-05-18] MEDS: CARVEDILOL 12.5 MG TABLET. PO SCH (09:20)
[2017-05-18] MEDS: PIOGLITAZONE 15 MG TABLET. PO SCH (09:20)
[2017-05-18] MEDS: ASPIRIN ENTERIC COATED 81 MG TABLET.DR. PO SCH (09:20)
[2017-05-18] MEDS: TACROLIMUS 1 MG CAPSULE PO SCH (09:23)
[2017-05-18] MEDS: predniSONE 5 MG TABLET PO SCH (09:23)
[2017-05-18] MEDS: IV NORMAL SALINE 1000ML BAG 1,000 ML IV SCH (09:28)
[2017-05-18] MEDS: INSULIN ASPART 300 UNITS/3 ML INSULN.PEN SQ SCH ×2 (09:29→09:30)
[2017-05-18 10:55] VITALS: BP 143/79
--- NOTE | 2017-05-18 11:36 | PDOC ---
PROGRESS NOTES Chief Complaint Chief Complaint Chest pain HTN HLP Uncontrolled DM2: with steroid use and transplant meds CKD: past ESRD/dialysis resolved with renal transplant, Remains stable Chronic immunosuppressions: with prednisone and prograf and myfortic. ALYSIA: broken CPAP again. ADELE, vasomotor mild malnutrition History of Present Illness History of Present Illness Pt seen at bedside. He is resting comfortably and in no acute distress. S/p cardiac cath, no significant CAD, no stents. He denies any CP or SOB at this time. Cardio and Nephrology following. Will move forward with their plan of care. Continue to monitor. Vitals Vitals Vital Signs Date Time Temp Pulse Resp B/P (MAP) Pulse Ox O2 Delivery O2 Flow Rate FiO2 05/18/17 10:55 98.4 82 20 143/79 (100) 97 Room Air 98.4 Physical Exam General: Alert, Oriented X3, Cooperative, No acute distress Heart: Regular rate (SR), Normal S1, Normal S2, Other (3/6 daistolic murmur to MAEGAN border) Lungs: Clear Abdomen: Soft, No tenderness, Other (truncal obesity) Extremities: No cyanosis, Other ( bl leg 1 + edema) Skin: No breakdown, No significant lesion Labs LABS Laboratory Tests Test 05/17/17 11:37 05/17/17 15:21 05/17/17 20:28 05/18/17 02:57 Glucose (Fingerstick) 280 mg/dL (70-99) 271 mg/dL (70-99) 239 mg/dL (70-99) Sodium Level 138 mmol/L (136-145) Potassium Level 3.6 mmol/L (3.5-5.1) Chloride Level 106 mmol/L (98-107) Carbon Dioxide Level 27 mmol/L (21-32) Anion Gap 5 (6-14) Blood Urea Nitrogen 20 mg/dL (8-26) Creatinine 1.3 mg/dL (0.7-1.3) Estimated GFR (Cockcroft-Gault) 71.3 Glucose Level 198 mg/dL (70-99) Calcium Level 8.4 mg/dL (8.5-10.1) Test 05/18/17 08:08 Glucose (Fingerstick) 210 mg/dL (70-99) Review of Systems Review of Systems Gen: + fatigue, + hunger, no fever or chills CV: No CP or palp Resp: no Sob or wheezing Assessment and Plan Assessmemt and Plan Problems Medical Problems: (1) Chest pain Status: Acute (2) Hyperglycemia Status: Acute Assessment: Chest pain HTN HLP Uncontrolled DM2: with steroid use and transplant meds CKD: past ESRD/dialysis resolved with renal transplant, Remains stable Chronic immunosuppressions: with prednisone and prograf and myfortic. ALYSIA: broken CPAP again. ADELE, vasomotor mild malnutrition plan: Recheck labs pt/ot cont home meds on immunosuppressive meds for kidney transplant dvt ppx echo normal cardiac cath normal asked pt to talk to CPAP [facility] for the [facility] Nephrology following-creatine stable hope to d/c to home cardio following probable d/c to home if cleared by subspecialists Problems: Comment Review of Relevant I have reviewed the following items izabela (where applicable) has been applied. Labs Laboratory Tests Test 05/16/17 11:46 05/16/17 16:45 05/16/17 20:52 05/17/17 03:50 Glucose (Fingerstick) 216 mg/dL (70-99) 276 mg/dL (70-99) 407 mg/dL (70-99) White Blood Count 5.0 x10^3/uL (4.0-11.0) Red Blood Count 4.73 x10^6/uL (4.30-5.70) Hemoglobin 12.1 g/dL (13.0-17.5) Hematocrit 37.4 % (39.0-53.0) Mean Corpuscular Volume 79 fL (79-100) Mean Corpuscular Hemoglobin 26 pg (25-35) Mean Corpuscular Hemoglobin Concent 32 g/dL (31-37) Red Cell Distribution Width 13.7 % (11.5-14.5) Platelet Count 189 x10^3/uL (140-400) Neutrophils (%) (Auto) 51 % (31-73) Lymphocytes (%) (Auto) 32 % (24-48) Monocytes (%) (Auto) 14 % (0-9) Eosinophils (%) (Auto) 4 % (0-3) Basophils (%) (Auto) 0 % (0-3) Neutrophils # (Auto) 2.6 x10^3uL (1.8-7.7) Lymphocytes # (Auto) 1.6 x10^3/uL (1.0-4.8) Monocytes # (Auto) 0.7 x10^3/uL (0.0-1.1) Eosinophils # (Auto) 0.2 x10^3/uL (0.0-0.7) Basophils # (Auto) 0.0 x10^3/uL (0.0-0.2) Sodium Level 136 mmol/L (136-145) Potassium Level 3.7 mmol/L (3.5-5.1) Chloride Level 104 mmol/L (98-107) Carbon Dioxide Level 25 mmol/L (21-32) Anion Gap 7 (6-14) Blood Urea Nitrogen 20 mg/dL (8-26) Creatinine 1.4 mg/dL (0.7-1.3) Estimated GFR (Cockcroft-Gault) 65.4 Glucose Level 285 mg/dL (70-99) Hemoglobin A1c 11.4 % (4.8-5.6) Calcium Level 8.7 mg/dL (8.5-10.1) Test 05/17/17 10:03 05/17/17 11:37 05/17/17 15:21 05/17/17 20:28 Glucose (Fingerstick) 256 mg/dL (70-99) 280 mg/dL (70-99) 271 mg/dL (70-99) 239 mg/dL (70-99) Test 05/18/17 02:57 05/18/17 08:08 Sodium Level 138 mmol/L (136-145) Potassium Level 3.6 mmol/L (3.5-5.1) Chloride Level 106 mmol/L (98-107) Carbon Dioxide Level 27 mmol/L (21-32) Anion Gap 5 (6-14) Blood Urea Nitrogen 20 mg/dL (8-26) Creatinine 1.3 mg/dL (0.7-1.3) Estimated GFR (Cockcroft-Gault) 71.3 Glucose Level 198 mg/dL (70-99) Calcium Level 8.4 mg/dL (8.5-10.1) Glucose (Fingerstick) 210 mg/dL (70-99) Laboratory Tests Test 05/17/17 11:37 05/17/17 15:21 05/17/17 20:28 05/18/17 02:57 Glucose (Fingerstick) 280 mg/dL (70-99) 271 mg/dL (70-99) 239 mg/dL (70-99) Sodium Level 138 mmol/L (136-145) Potassium Level 3.6 mmol/L (3.5-5.1) Chloride Level 106 mmol/L (98-107) Carbon Dioxide Level 27 mmol/L (21-32) Anion Gap 5 (6-14) Blood Urea Nitrogen 20 mg/dL (8-26) Creatinine 1.3 mg/dL (0.7-1.3) Estimated GFR (Cockcroft-Gault) 71.3 Glucose Level 198 mg/dL (70-99) Calcium Level 8.4 mg/dL (8.5-10.1) Test 05/18/17 08:08 Glucose (Fingerstick) 210 mg/dL (70-99) Medications Current Medications Sodium Chloride 1,000 ml @ 1,000 mls/hr 1X ONCE IV Last administered on 15:40; Start 05/15/17 at 15:15; Stop 05/15/17 at 16:14; Status DC Aspirin (Zympi Aspirin) 325 mg 1X ONCE PO Last administered on 05/15/17 15:39 ; Start 05/15/17 at 15:15; Stop 05/15/17 at 15:16; Status DC Insulin Aspart (NovoLOG) 0-7 UNITS TIDWMEALS SQ Last administered on 05/15/17 17:00; Start 05/15/17 at 17:00; Stop 05/15/17 at 21:38; Status DC Dextrose (Dextrose 50%-Water Syringe) 12.5 gm PRN Q15MIN PRN IV SEE COMMENTS; Start 05/15/17 at 16:45 Magnesium Oxide (Magnesium Oxide) 400 mg BID PO Last administered on 20:13; Start 05/15/17 at 17:00; Stop 05/16/17 at 21:01; Status DC Insulin Aspart (NovoLOG) 0-7 UNITS QIDACHS SQ Last administered on 05/18/17 09:30; Start 05/16/17 at 07:30 Insulin Aspart (NovoLOG) 12 units 1X ONCE SQ Last administered on 05/15/17 22 :27; Start 05/15/17 at 21:45; Stop 05/15/17 at 21:46; Status DC Allopurinol (Zyloprim) 300 mg DAILY PO Last administered on 05/18/17 09:19; Start 05/16/17 at 09:00 Amlodipine Besylate (Norvasc) 10 mg DAILY PO Last administered on 05/18/17 09 :19; Start 05/16/17 at 09:00 Aspirin (Ecotrin) 81 mg DAILY PO Last administered on 05/18/17 09:20; Start 05/16/17 at 09:00 Mycophenolate Sodium (Myfortic) 180 mg BID PO Last administered on 05/18/17 09:19; Start 05/16/17 at 09:00; Stop 05/18/17 at 11:08; Status DC Mycophenolate Sodium (Myfortic) 360 mg BID PO Last administered on 05/18/17 09:20; Start 05/16/17 at 09:00; Stop 05/18/17 at 11:08; Status DC Pioglitazone HCl (Actos) 45 mg DAILY PO Last administered on 05/18/17 09:20; Start 05/16/17 at 09:00 Prednisone (Prednisone) 5 mg DAILY PO Last administered on 05/18/17 09:23; Start 05/16/17 at 09:00 Tacrolimus (Prograf) 3 mg BID PO Last administered on 05/18/17 09:23; Start 05/16/17 at 09:00 Carvedilol (Coreg) 25 mg BIDWMEALS PO Last administered on 05/18/17 09:20; Start 05/16/17 at 08:00 Vitamin D (Vitamin D3) 2,000 unit DAILY PO Last administered on 05/18/17 09: 20; Start 05/16/17 at 09:00 Glimepiride (Amaryl) 4 mg BIDBFRMEAL PO Last administered on 05/18/17 09:20; Start 05/16/17 at 07:30 Hydralazine HCl (Apresoline) 100 mg BID PO Last administered on 05/18/17 09: 18; Start 05/16/17 at 09:00 Insulin Detemir (Levemir) 10 units HS SQ Last administered on 05/16/17 21:15 ; Start 05/15/17 at 23:00; Stop 05/17/17 at 10:32; Status DC Magnesium Oxide (Magnesium Oxide) 800 mg DAILY PO Last administered on 09:18; Start 05/16/17 at 09:00 Potassium Chloride (Klor-Con) 20 meq DAILY PO Last administered on 05/18/17 09:18; Start 05/16/17 at 09:00 Atorvastatin Calcium (Lipitor) 5 mg HS PO Last administered on 05/17/17 20:11 ; Start 05/16/17 at 21:00 Tacrolimus (Prograf) 3 mg 1X ONCE PO Last administered on 05/15/17 23:30; Start 05/15/17 at 23:00; Stop 05/15/17 at 23:01; Status DC Carvedilol (Coreg) 25 mg 1X ONCE PO Last administered on 05/15/17 23:31; Start 05/15/17 at 23:00; Stop 05/15/17 at 23:01; Status DC Insulin Detemir (Levemir) 10 units 1X ONCE SQ ; Start 05/15/17 at 22:45; Stop 05/15/17 at 22:46; Status UNV Sodium Chloride 1,000 ml @ 100 mls/hr Q10H IV Last administered on 05/17/17 22:25; Start 05/16/17 at 11:30 Regadenoson (Lexiscan) 0.4 mg 1X ONCE IV ; Start 05/16/17 at 12:15; Stop 05/23 at 12:16; Status DC Acetaminophen (Tylenol) 650 mg PRN Q6HRS PRN PO FEVER; Start 05/16/17 at 14:00 Ondansetron HCl (Zofran) 4 mg PRN Q6HRS PRN IV NAUSEA/VOMITING; Start at 14:00 Morphine Sulfate 2 mg PRN Q2HR PRN IV PAIN; Start 05/16/17 at 14:00 Tramadol HCl (Ultram) 50 mg PRN Q6HRS PRN PO PAIN Last administered on 20:15; Start 05/16/17 at 14:00 Hydralazine HCl (Apresoline Inj) 10 mg PRN Q4HRS PRN IVP ELEVATED BP, SEE COMMENTS; Start 05/16/17 at 14:00 Docusate Sodium (Colace) 100 mg PRN DAILY PRN PO CONSTIPATION; Start 05/16/17 at 14:00 Influenza Virus Vaccine Quadrival (Fluarix Quad [id number] Syringe) 0.5 ml ONCE ONCE VAX IM Last administered on 05/16/17 17:24; Start 05/16/17 at 14:45; Stop 05/16/17 at 14:46; Status DC Iodixanol (Visipaque 320) 100 ml STK-MED ONCE .ROUTE ; Start 05/17/17 at 07:29 ; Stop 05/17/17 at 07:30; Status DC Lidocaine HCl 20 ml STK-MED ONCE .ROUTE ; Start 05/17/17 at 07:29; Stop at 07:30; Status DC Heparin Sodium/ Sodium Chloride 1,500 ml @ As Directed STK-MED ONCE .ROUTE ; Start 05/17/17 at 07:30; Stop 05/17/17 at 07:31; Status DC Fentanyl Citrate (Fentanyl 2ml Vial) 100 mcg STK-MED ONCE .ROUTE ; Start at 08:33; Stop 05/17/17 at 08:34; Status DC Midazolam HCl (Versed) 5 mg STK-MED ONCE .ROUTE ; Start 05/17/17 at 08:33; Stop 05/17/17 at 08:34; Status DC Heparin Sodium/ Sodium Chloride 1,000 unit 1X ONCE IART Last administered on 05/17/17 09:37; Start 05/17/17 at 09:00; Stop 05/17/17 at 09:01; Status DC Heparin Sodium/ Sodium Chloride 1,000 unit 1X ONCE IART Last administered on 05/17/17 09:37; Start 05/17/17 at 09:00; Stop 05/17/17 at 09:01; Status DC Midazolam HCl (Versed) 5 mg 1X ONCE IV Last administered on 05/17/17 09:39; Start 05/17/17 at 09:00; Stop 05/17/17 at 09:01; Status DC Fentanyl Citrate (Fentanyl 2ml Vial) 100 mcg 1X ONCE IV Last administered on 05/17/17 09:38; Start 05/17/17 at 09:00; Stop 05/17/17 at 09:01; Status DC Iodixanol (Visipaque 320) 100 ml 1X ONCE IART Last administered on 05/17/17 09:38; Start 05/17/17 at 09:00; Stop 05/17/17 at 09:01; Status DC Lidocaine HCl 20 ml 1X ONCE IJ Last administered on 05/17/17 09:38; Start 05/17/17 at 09:00; Stop 05/17/17 at 09:01; Status DC Info (Do NOT chart on this entry -- for MONITORING) 1 each PRN DAILY PRN MC SEE COMMENTS; Start 05/17/17 at 09:00; Stop 05/19/17 at 08:59 Lidocaine HCl 20 ml STK-MED ONCE .ROUTE ; Start 05/17/17 at 08:56; Stop at 08:57; Status DC Insulin Detemir (Levemir) 15 units HS SQ ; Start 05/17/17 at 21:00; Stop 05/17 at 21:00; Status DC Sodium Chloride (Normal Saline Flush) 3 ml QSHIFT PRN IV AFTER MEDS AND BLOOD DRAWS; Start 05/17/17 at 11:30 Sodium Chloride 1,000 ml @ 100 mls/hr Q10H IV ; Start 05/17/17 at 11:16; Stop 05/17/17 at 19:15; Status DC Nitroglycerin (Nitrostat) 0.4 mg PRN Q5MIN PRN SL CHEST PAIN; Start 05/17/17 at 11:30 Insulin Detemir (Levemir) 20 units HS SQ Last administered on 05/17/17 21:01 ; Start 05/17/17 at 21:00 Insulin Aspart (NovoLOG) 5 units TIDAC SQ Last administered on 05/18/17 09:29 ; Start 05/17/17 at 16:30 Temazepam (Restoril) 15 mg PRN QHS PRN PO INSOMNIA Last administered on 20:59; Start 05/17/17 at 20:45 Mycophenolate Sodium (Myfortic) 540 mg BID PO ; Start 05/18/17 at 21:00 Active Scripts Active Levemir Flextouch (Insulin Detemir) 100 Unit/1 Ml Insuln.pen 15 Units SQ HS 30 Days Actos (Pioglitazone Hcl) 15 Mg Tablet 45 Mg PO DAILY Reported Vitamin D (Cholecalciferol (Vitamin D3)) 2,000 Unit Capsule 1 Cap PO DAILY Potassium Chloride 20 Meq Tablet.er 20 Meq PO DAILY Aspir 81 (Aspirin) 81 Mg Tablet. 1 Tab PO DAILY Myfortic (Mycophenolate Sodium) 180 Mg Tablet. 180 Mg PO BID Pravastatin Sodium 20 Mg Tablet 20 Mg PO HS Magnesium (Magnesium Oxide) 400 Mg Capsule 2 Cap PO DAILY Prednisone 5 Mg Tablet 5 Mg PO DAILY Glimepiride 4 Mg Tablet 4 Mg PO BID Allopurinol 300 Mg Tablet 300 Mg PO DAILY Amlodipine Besylate 5 Mg Tablet 10 Mg PO DAILY Hydralazine Hcl 100 Mg Tablet 100 Mg PO BID Carvedilol 25 Mg Tablet 1 Tab PO BID Myfortic (Mycophenolate Sodium) 360 Mg Tablet. 360 Mg PO BID Prograf (Tacrolimus) 1 Mg Capsule 3 Cap PO BID Vitals/I & O Vital Sign - Last 24 Hours 05/17/17 05/17/17 05/17/17 05/17/17 11:45 11:46 11:50 12:45 Temp 97.9 97.9 Pulse 75 73 Resp 18 B/P (MAP) 140/76 (97) 123/78 (93) Pulse Ox 95 O2 Delivery Room Air Room Air Room Air Room Air 05/17/17 05/17/17 05/17/17 05/17/17 13:29 13:45 14:40 15:45 O2 Delivery Room Air Room Air Room Air Room Air 05/17/17 05/17/17 05/17/17 05/17/17 15:46 17:45 19:00 20:00 Temp 97.4 98.3 97.4 98.3 Pulse 80 80 76 Resp 18 18 B/P (MAP) 143/96 (112) 143/96 140/83 (102) Pulse Ox 97 96 O2 Delivery Room Air Room Air Room Air 05/17/17 05/17/17 05/17/17 05/17/17 20:11 20:15 21:15 23:05 Temp 98.1 98.1 Pulse 76 76 Resp 20 20 15 B/P (MAP) 140/83 120/66 (84) Pulse Ox 96 96 96 O2 Delivery Room Air Room Air Room Air 05/18/17 05/18/17 05/18/17 05/18/17 03:05 07:50 08:00 09:18 Temp 97.8 98.4 97.8 98.4 Pulse 69 72 80 Resp 16 18 B/P (MAP) 129/74 (92) 152/97 (115) 152/97 Pulse Ox 95 94 O2 Delivery Room Air Room Air Room Air 05/18/17 05/18/17 05/18/17 09:19 09:20 10:55 Temp 98.4 98.4 Pulse 78 77 82 Resp 20 B/P (MAP) 152/97 152/97 143/79 (100) Pulse Ox 97 O2 Delivery Room Air Intake and Output 05/18/17 05/18/17 05/19/17 15:00 23:00 07:00 Intake Total 240 ml Balance 240 ml ALEJANDRA VICENTE III DO May 18, 2017 11:36
--- NOTE | 2017-05-18 11:38 | PDOC ---
Renal-Progress Notes Subjective Notes Notes NO COMPLAINTS History of Present Illness Hx of present illness STABLE Vitals Vitals Vital Signs Date Time Temp Pulse Resp B/P (MAP) Pulse Ox O2 Delivery O2 Flow Rate FiO2 05/18/17 10:55 98.4 82 20 143/79 (100) 97 Room Air 98.4 Weight Weight [ ] I.O. Intake and Output Intake and Output 05/19/17 06:59 Intake Total 240 ml Balance 240 ml Intake Oral 240 ml Labs Labs Laboratory Tests Test 05/17/17 15:21 05/17/17 20:28 05/18/17 02:57 05/18/17 08:08 Glucose (Fingerstick) 271 mg/dL (70-99) 239 mg/dL (70-99) 210 mg/dL (70-99) Sodium Level 138 mmol/L (136-145) Potassium Level 3.6 mmol/L (3.5-5.1) Chloride Level 106 mmol/L (98-107) Carbon Dioxide Level 27 mmol/L (21-32) Anion Gap 5 (6-14) Blood Urea Nitrogen 20 mg/dL (8-26) Creatinine 1.3 mg/dL (0.7-1.3) Estimated GFR (Cockcroft-Gault) 71.3 Glucose Level 198 mg/dL (70-99) Calcium Level 8.4 mg/dL (8.5-10.1) Review of Systems Constitutional: yes: alert, oriented Ears/Nose/Throat: Yes: no symptom reported Pulmonary: Yes no symptom reported Cardiovascular: Yes no symptom reported Gastrointestional: Yes: no symptom reported Musculoskeletal: Yes: no symptom reported Skin: Yes no symptom reported Psychiatric/Neurological: Yes: no symptom reported Physical Exam General Appearance: mild distress Skin: warm Respiratory: bilateral CTA Heart: S1S2 Abdomen: soft, bowel sounds present Genitourinary: bladder flat Extremities: pulses present Neurology: alert, oriented Musculoskeletal: Osteoarthritis Assessment Assessment IMP HX RENAL TRANSPLANT-NO CAN-CR 1.3 CHEST PAIN DM II - POORLY CONTROLLED HTN S/P LHC-CLEAN PLAN OK TO D/C HE WILL KEEP HIS APPT WITH [facility] CL[facility] NEXT MONTH ENC WT LOSS WILL SIGN OFF BERTIN GU MD May 18, 2017 11:38
--- NOTE | 2017-05-18 11:59 | PDOC ---
CARDIO Progress Notes Date and Time Date of Service 05/18/2017 Time of Evaluation 1140 Subjective Subjective: No Chest Pain, No shortness of breath, No Palpitations Vitals Vitals Vital Signs Date Time Temp Pulse Resp B/P (MAP) Pulse Ox O2 Delivery O2 Flow Rate FiO2 05/18/17 10:55 98.4 82 20 143/79 (100) 97 Room Air 98.4 Weight Weight [ ] Input and Output Intake and Output Intake and Output 05/19/17 07:00 Intake Total 240 ml Balance 240 ml Intake Oral 240 ml Laboratory Labs Laboratory Tests Test 05/17/17 15:21 05/17/17 20:28 05/18/17 02:57 05/18/17 08:08 Glucose (Fingerstick) 271 mg/dL (70-99) 239 mg/dL (70-99) 210 mg/dL (70-99) Sodium Level 138 mmol/L (136-145) Potassium Level 3.6 mmol/L (3.5-5.1) Chloride Level 106 mmol/L (98-107) Carbon Dioxide Level 27 mmol/L (21-32) Anion Gap 5 (6-14) Blood Urea Nitrogen 20 mg/dL (8-26) Creatinine 1.3 mg/dL (0.7-1.3) Estimated GFR (Cockcroft-Gault) 71.3 Glucose Level 198 mg/dL (70-99) Calcium Level 8.4 mg/dL (8.5-10.1) Test 05/18/17 11:24 Glucose (Fingerstick) 219 mg/dL (70-99) Review of Systems Constitutional: yes: alert, oriented Ears/Nose/Throat: Yes: no symptom reported Pulmonary: Yes no symptom reported Cardiovascular: Yes no symptom reported Gastrointestional: Yes: no symptom reported Musculoskeletal: Yes: no symptom reported Skin: Yes no symptom reported Psychiatric/Neurological: Yes: no symptom reported Physical Exam HEENT: Neck Supple W Full Motion Chest: Symmetric LUNGS: Clear to Auscultation Heart: S1S2, RRR (SR) Abdomen: Soft N/T, Other (truncal obesity) Extremities: No Calf Tenderness Neurology: alert, oriented, follow commands Assessment Assessment 1. Chest pain: S/P LHC no significant disease. possibly MSK. 2. HTN: controlled 3. HLP 4. Uncontrolled DM2: with steroid use 5. CKD: past ESRD/dialysis resolved with renal transplant, Remains stable, nephrology following 6. Chronic immunosuppressions: with prednisone and prograf and myfortic. 7. ALYSIA: broken CPAP again. Occasional MOSQUERA likely from uncontrolled ALYSIA and immunosuppression and deconditioning 8. Hx of mild AI: Now absent, no valvular disease. Recommendations 1. Continue with home regimen 2. Discussed developing exercise regimen, CPAP compliance and wt loss. 3. Continue with secondary prevention DALILA WORTHY APRN May 18, 2017 11:59
[2017-05-18] MEDS ORDERED: MYCOPHENOLATE ACID 180 MG TABLET.DR. PO SCH (21:00)
== END 2017-05-18 11:50 | disposition home or self-care (01) | DRG 286 ==
LOC: ER 14:42 → 2 NORTH 16:04
PROVIDERS: ADMIT Internal Medicine; ATTEND Internal Medicine
PROC: 4A023N7 Measurement of Cardiac Sampling and Pressure, Left Heart, Percutaneous Approach (ICD-10-PCS; principal; 2017-05-17)
PROC: B2111ZZ Fluoroscopy of Multiple Coronary Arteries using Low Osmolar Contrast (ICD-10-PCS; 2017-05-17)
DX: R07.89 Other chest pain (principal); N17.0 Acute kidney failure with tubular necrosis; E44.1 Mild protein-calorie malnutrition; I12.0 Hypertensive chronic kidney disease with stage 5 chronic kidney disease or end stage renal disease; Z94.0 Kidney transplant status; E11.22 Type 2 diabetes mellitus with diabetic chronic kidney disease; E11.65 Type 2 diabetes mellitus with hyperglycemia; E66.9 Obesity, unspecified; E78.5 Hyperlipidemia, unspecified; E86.0 Dehydration; G47.33 Obstructive sleep apnea (adult) (pediatric); K21.9 Gastro-esophageal reflux disease without esophagitis; M10.9 Gout, unspecified; M19.90 Unspecified osteoarthritis, unspecified site; Z88.8 Allergy status to other drugs, medicaments and biological substances; Z68.38 Body mass index [BMI] 38.0-38.9, adult; Z99.2 Dependence on renal dialysis; Z98.890 Other specified postprocedural states; Z79.899 Other long term (current) drug therapy
CPT/HCPCS: 36415; 71010; 80048; 80053; 80061; 81001; 82962; 83036; 83735; 83880; 84484; 85007; 85025; 85610; 85730; 90686; 93005; 93306; 93458; 96360; 96361; 96372; 99152; 99153; C1769; C1771; C1892; G0269; J1644; J1815; J2250; J3010; J7030; J7507; J7512; 99285-25; J2001

== ENCOUNTER 2018-05-24 11:16 | Emergency (ER) | payer SELFPAY ==
[~2018-05-24] VITALS: Ht 182.9 cm; Wt 113.4 kg
[~2018-05-24 11:16] MED LIST changes: -AMLO5TAB2 PO; +AMLO5TAB7 PO; +ASPI-482 PO; +CHOL2000 PO; +INSU100V13 SQ; +MYCO180T PO; -PIOG15TA2 PO; +PIOG15TA63 PO
--- NOTE | 2018-05-24 11:32 | PHYS DOC ---
Past Medical History Past Medical History: CHF, Hypertension, Renal Failure, Other Additional Past Medical Histor: KIDNEY FAILURE, BAD HEART VALVE, Past Surgical History: Appendectomy, Other Additional Past Surgical Histo: KIDNEY TRANSPLANT, AV FISTULA LEFT ARM Alcohol Use: None Drug Use: None Adult General Chief Complaint Chief Complaint: WEAKNESS/GENERALIZED HPI HPI Patient is a 47 year old male with history of hypertension, CHF, renal failure , kidney transplant in 2012 who presents today complaining of generalized weakness that has been going on for 4-5 days. Patient denies any chest pain, shortness of breath, dizziness, fever cough or congestion. He states his blood sugars have been running in the 200s, he states he supposed to be on insulin but has not used his insulin for almost a month because of affordability. Review of Systems Review of Systems Constitutional: Denies fever or chills [] Eyes: Denies change in visual acuity, redness, or eye pain [] HENT: Denies nasal congestion or sore throat [] Respiratory: Denies cough or shortness of breath [] Cardiovascular: No additional information not addressed in HPI [] GI: Denies abdominal pain, nausea, vomiting, bloody stools or diarrhea [] : Denies dysuria or hematuria [] Musculoskeletal: Denies back pain or joint pain [] Integument: Denies rash or skin lesions [] Neurologic: Reports generalized weakness. Denies headache, focal weakness or sensory changes [] All other systems were reviewed and found to be within normal limits, except as documented in this note. Current Medications Current Medications Current Medications Medications (Trade) Dose Ordered Sig/Bertram Start Time Stop Time Status Last Admin Dose Admin Insulin Human Regular (HumuLIN R VIAL) 8 unit 1X ONCE 05/24/18 14:30 05/24/18 14:31 DC 05/24/18 14:30 8 UNIT Sodium Chloride 1,000 ml @ 1,000 mls/hr 1X ONCE 05/24/18 14:30 05/24/18 15:29 05/24/18 15:01 1,000 MLS/HR Allergies Allergies Allergies Coded Allergies Type Severity Reaction Last Updated Verified clonidine Allergy Intermediate 10/31/16 Yes Physical Exam Physical Exam Constitutional: Well developed, well nourished, no acute distress, non-toxic appearance. [] HENT: Normocephalic, atraumatic, bilateral external ears normal, oropharynx moist, no oral exudates, nose normal. [] Eyes: PERRLA, EOMI, conjunctiva normal, no discharge. [] Neck: Normal range of motion, no tenderness, supple, no stridor. [] Cardiovascular:Heart rate regular rhythm, no murmur [] Lungs & Thorax: Bilateral breath sounds clear to auscultation [] Abdomen: Bowel sounds normal, soft, no tenderness, no masses, no pulsatile masses. [] Skin: Warm, dry, no erythema, no rash. [] Back: No tenderness, no CVA tenderness. [] Extremities: No tenderness, no cyanosis, no clubbing, ROM intact, no edema. [] Neurologic: Alert and oriented X 3, normal motor function, normal sensory function, no focal deficits noted. Cranial nerves II through XII intact Psychologic: Affect normal, judgement normal, mood normal. [] Current Patient Data Vital Signs Vital Signs Date Time Temp Pulse Resp B/P (MAP) Pulse Ox O2 Delivery O2 Flow Rate FiO2 05/24/18 14:28 92 12 100 05/24/18 11:22 98.6 130/80 (97) Room Air 98.6 Lab Values Laboratory Tests Test 05/24/18 11:48 05/24/18 12:38 05/24/18 14:23 Influenza Type A Antigen Negative (NEGATIVE) Influenza Type B Antigen Negative (NEGATIVE) White Blood Count 4.9 x10^3/uL (4.0-11.0) Red Blood Count 5.00 x10^6/uL (4.30-5.70) Hemoglobin 13.2 g/dL (13.0-17.5) Hematocrit 40.4 % (39.0-53.0) Mean Corpuscular Volume 81 fL (79-100) Mean Corpuscular Hemoglobin 27 pg (25-35) Mean Corpuscular Hemoglobin Concent 33 g/dL (31-37) Red Cell Distribution Width 15.2 % (11.5-14.5) H Platelet Count 181 x10^3/uL (140-400) Neutrophils (%) (Auto) 59 % (31-73) Lymphocytes (%) (Auto) 24 % (24-48) Monocytes (%) (Auto) 15 % (0-9) H Eosinophils (%) (Auto) 2 % (0-3) Basophils (%) (Auto) 1 % (0-3) Neutrophils # (Auto) 2.9 x10^3uL (1.8-7.7) Lymphocytes # (Auto) 1.2 x10^3/uL (1.0-4.8) Monocytes # (Auto) 0.7 x10^3/uL (0.0-1.1) Eosinophils # (Auto) 0.1 x10^3/uL (0.0-0.7) Basophils # (Auto) 0.0 x10^3/uL (0.0-0.2) Sodium Level 140 mmol/L (136-145) Potassium Level 3.6 mmol/L (3.5-5.1) Chloride Level 102 mmol/L (98-107) Carbon Dioxide Level 22 mmol/L (21-32) Anion Gap 16 (6-14) H Blood Urea Nitrogen 17 mg/dL (8-26) Creatinine 1.4 mg/dL (0.7-1.3) H Estimated GFR (Cockcroft-Gault) 65.2 BUN/Creatinine Ratio 12 (6-20) Glucose Level 258 mg/dL (70-99) H Calcium Level 10.0 mg/dL (8.5-10.1) Magnesium Level 1.3 mg/dL (1.8-2.4) L Total Bilirubin 0.4 mg/dL (0.2-1.0) Aspartate Amino Transferase (AST) 8 U/L (15-37) L Alanine Aminotransferase (ALT) 19 U/L (16-63) Alkaline Phosphatase 73 U/L (46-116) Troponin I Quantitative < 0.017 ng/mL (0.000-0.055) QK-Kxi-C-Type Natriuretic Peptide 53 pg/mL (0-124) Total Protein 7.8 g/dL (6.4-8.2) Albumin 3.4 g/dL (3.4-5.0) Albumin/Globulin Ratio 0.8 (1.0-1.7) L Thyroid Stimulating Hormone (TSH) 0.507 uIU/mL (0.358-3.74) Urine Collection Type Unknown Urine Color Yellow Urine Clarity Clear Urine pH 6.0 Urine Specific Upper Tract 1.025 Urine Protein 30 mg/dL (NEG-TRACE) Urine Glucose (UA) >=1000 mg/dL (NEG) Urine Ketones (Stick) >=80 mg/dL (NEG) Urine Blood Negative (NEG) Urine Nitrite Negative (NEG) Urine Bilirubin Moderate (NEG) Urine Urobilinogen Dipstick 0.2 mg/dL (0.2 mg/dL) Urine Leukocyte Esterase Negative (NEG) Urine RBC 1-2 /HPF (0-2) Urine WBC Occ /HPF (0-4) Urine Squamous Epithelial Cells Few /LPF Urine Bacteria 0 /HPF (0-FEW) Urine Mucus Mod /LPF Urine Opiates Screen Neg (NEG) Urine Methadone Screen Neg (NEG) Urine Barbiturates Neg (NEG) Urine Phencyclidine Screen Neg (NEG) Urine Amphetamine/Methamphetamine Neg (NEG) Urine Benzodiazepines Screen Neg (NEG) Urine Cocaine Screen Neg (NEG) Urine Cannabinoids Screen Neg (NEG) Urine Ethyl Alcohol Neg (NEG) Laboratory Tests 05/24/18 12:38 Laboratory Tests 05/24/18 12:38 EKG EKG 11:[address] Webster sinus rhythm heart rate 97 no STEMI[] Radiology/Procedures Radiology/Procedures []PROCEDURE: PORTABLE CHEST 1V EXAM: Chest, single view. HISTORY: Weakness. Congestive heart failure. Hypertension. COMPARISON: 05/15/2017 FINDINGS: A single view of the chest is obtained. There is no infiltrate, pleural effusion or pneumothorax. The heart is normal in size. IMPRESSION: No acute pulmonary finding. Electronically signed by: Ana Zamora MD (05/24/2018 12:01 PM) [place] [id number] DICTATED and SIGNED BY: ANA ZAMORA MD DATE: 05/24/18 1201 Course & Med Decision Making Course & Med Decision Making Pertinent Labs and Imaging studies reviewed. (See chart for details) This is a 47-year-old male patient with history of kidney transplant in 2011 presenting to the ED today with generalized weakness. Symptoms for 4-5 days. CBC with normal WBC, CMP with glucose of 258, anion gap 16 creatinine 1.4. Chest x-ray interpreted by radiologist is negative for any acute findings. Troponin is normal. Negative influenza A or B Patient was offered admission, he declined. He was given IV fluids and insulin. Blood glucose of be rechecked prior to discharge. He was encouraged to follow- up with the PCP in the course of this week or next week. Dragon Disclaimer Dragon Disclaimer This electronic medical record was generated, in whole or in part, using a voice recognition dictation system. Departure Departure Impression: Primary Impression: Hyperglycemia Additional Impression: Weakness Disposition: 01 HOME, SELF-CARE Condition: STABLE Referrals: ALISIA WU MD (PCP) follow up as soon as you can Patient Instructions: Hyperglycemia, Weakness, [id number] Additional Instructions: You were evaluated in the emergency room for weakness. Try your best and use your insulin as prescribed. Follow-up with your doctor in the course of this week or next week. Come back to the ED at any point symptoms worsen. Problem Qualifiers URBANO MARTEL [employer] MECH[employer]IC May 24, 2018 11:32
--- NOTE | 2018-05-24 12:05 | RAD ---
EXAM: Chest, single view. HISTORY: Weakness. Congestive heart failure. Hypertension. COMPARISON: 05/15/2017 FINDINGS: A single view of the chest is obtained. There is no infiltrate, pleural effusion or pneumothorax. The heart is normal in size. IMPRESSION: No acute pulmonary finding. Electronically signed by: Ana Fong MD (05/24/2018 12:01 PM) [facility]
[2018-05-24 12:14] LABS: INFLUENZA A PATIENT NEGATIVE (NEGATIVE); INFLUENZA B PATIENT NEGATIVE (NEGATIVE)
--- NOTE | 2018-05-24 12:44 | EKG ---
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
[2018-05-24 13:19] LABS: BASO % 1 % (0-3); EOS # 0.1 x10^3/uL (0.0-0.7); EOS % 2 % (0-3); HEMATOCRIT 40.4 % (39.0-53.0); HEMOGLOBIN 13.2 g/dL (13.0-17.5); LYMPH # 1.2 x10^3/uL (1.0-4.8); LYMPH % 24 % (24-48); MEAN CORPUSCULAR HEMOGLOBIN 27 pg (25-35); MEAN CORPUSCULAR HGB CONC 33 g/dL (31-37); MEAN CORPUSCULAR VOLUME 81 fL (79-100); MONO # 0.7 x10^3/uL (0.0-1.1); MONO % 15 % (0-9); NEUT # 2.9 x10^3uL (1.8-7.7); NEUT % 59 % (31-73); PLATELET COUNT 181 x10^3/uL (140-400); RED CELL DISTRIBUTION WIDTH 15.2 % (11.5-14.5); WHITE BLOOD COUNT 4.9 x10^3/uL (4.0-11.0)
[2018-05-24 13:32] LABS: CREATININE 1.4 mg/dL (0.7-1.3); GFR 65.2; POTASSIUM 3.6 mmol/L (3.5-5.1)
[2018-05-24 13:43] LABS: ALBUMIN 3.4 g/dL (3.4-5.0); ALBUMIN/GLOBULIN RATIO 0.8 (1.0-1.7); MAGNESIUM 1.3 mg/dL (1.8-2.4); TOTAL BILIRUBIN 0.4 mg/dL (0.2-1.0); TOTAL PROTEIN 7.8 g/dL (6.4-8.2)
[2018-05-24 14:28] VITALS: BP 115/70
[2018-05-24] MEDS ORDERED: INSULIN REGULAR 100 UNIT/ML 3ML VIAL. IV ONE (14:30)
[2018-05-24] MEDS ORDERED: IV NORMAL SALINE 1000ML BAG 1,000 ML IV ONE (14:30)
[2018-05-24 14:34] LABS: BILIRUBIN,URINE MODERATE (NEG); CLARITY,URINE CLEAR; COLOR,URINE YELLOW; NITRITE,URINE NEGATIVE (NEG); PROTEIN,URINE 30 mg/dL (NEG-TRACE); UROBILINOGEN,URINE 0.2 mg/dL (0.2 mg/dL)
[2018-05-24 14:38] LABS: BACTERIA,URINE 0 /HPF (0-FEW); SQUAMOUS EPITHELIAL CELL,UR FEW /LPF; WBC,URINE OCC /HPF (0-4)
[2018-05-24 14:40] LABS: BARBITURATES NEG (NEG); BENZODIAZEPINES NEG (NEG); CANNABINOIDS NEG (NEG); COCAINE NEG (NEG); METHADONE NEG (NEG); OPIATES NEG (NEG); PHENCYCLIDINE NEG (NEG)
[2018-05-24 14:46] LABS: AMPHETAMINE/METHAMPHETAMINE NEG (NEG)
== END 2018-05-24 16:15 | disposition home or self-care (01) ==
LOC: ER 11:16
DX: R73.9 Hyperglycemia, unspecified (principal); R53.1 Weakness; I11.0 Hypertensive heart disease with heart failure; I50.9 Heart failure, unspecified; Z90.89 Acquired absence of other organs; Z88.8 Allergy status to other drugs, medicaments and biological substances; Z94.0 Kidney transplant status
CPT/HCPCS: 36415; 71045; 80053; 80307; 81001; 82962; 83735; 83880; 84443; 84484; 85025; 87804; 93005; 96374; 99285; J1815; J7030; G0479